=== PATIENT | male | born 1945 | race Caucasian/White ===

== ENCOUNTER 2016-08-16 13:36 | Inpatient (IN) | payer OTHER, BC ==
--- NOTE | 2016-08-16 13:58 | EDPHY ---
H & P Stated Complaint: SOB and cough for 2 weeks. Time Seen by Provider: 08/16/16 13:50 HPI/ROS: CHIEF COMPLAINT: Shortness of breath, cough HISTORY OF PRESENT ILLNESS: 71yo male with CAD and atrial tachycardia presents with a 2 week history of cough and shortness of breath. Onset a productive cough 2 weeks ago, associated with gradually increasing shortness of breath. He had a chest x-ray through his primary care physician 1 week ago which revealed no evidence of pneumonia. He was placed on inhalers without relief. He now feels short of breath with minimal exertion. He becomes easily fatigued even with mild activity like climbing into bed. He required electrical cardioversion for atrial tachycardia last October. He denies fever, sore throat, malaise, or unusual leg swelling. REVIEW OF SYSTEMS: Constitutional: No fever, no chills Eyes: No visual changes ENT: No sore throat Respiratory: see HPI Cardiac: No chest pain Gastrointestinal: No nausea, no vomiting, no abdominal pain Genitourinary: No hematuria, no dysuria Musculoskeletal: No leg pain or swelling Skin: No rash Neurological: No headache, no weakness Psychiatric: No depression - Personal History Current Tetanus Diphtheria and Acellular Pertussis (TDAP): Yes - Medical/Surgical History PMH: PMH includes: 1. Acute on chronic systolic heart failure 2. Chronic diastolic heart failure related to prior endocarditis, diastolic dysfunction, and aortic and mitral mechanical valve replacement 3. Coronary artery disease status post CABG at the time of his valve replacement 4. New onset atrial tachycardia with RVR requiring cardioversion 11/07/15 5. Diabetes 6. Dyslipidemia Prior medical records reviewed including cardiology admission 11/07/15. Hx Asthma: No Hx Chronic Respiratory Disease: No Hx Diabetes: No Hx Cardiac Disease: Yes Hx Renal Disease: No Hx Cirrhosis: No Hx Alcoholism: No Hx HIV/AIDS: No Hx Splenectomy or Spleen Trauma: No Other PMH: 2 heart valves. Prostate cancer. - Social History Smoking Status: Former smoker Additional Social History: Lives [address] [place]. Former smoker. PCP: Dr. Tavarez Second Grade Teacher: Dr. Tejeda - Physical Exam Exam: General Appearance: Alert, obese, no distress Eyes: Pupils equal and round, no conjunctival pallor or injection ENT, Mouth: Mucous membranes moist Neck: Normal inspection Respiratory: Lungs are clear to auscultation, increased respiratory effort. Cardiovascular: Tachycardic regular rate and rhythm Gastrointestinal: Abdomen is soft and non-tender Neurological: A&O, nonfocal, normal gait Skin: Warm and dry, no rash Extremities: Nontender, no pedal edema Psychiatric: Mood and affect normal Constitutional: Initial Vital Signs Temperature (C) 36.3 C 08/16/16 13:40 Heart Rate 104 H 08/16/16 13:40 Respiratory Rate 20 08/16/16 13:40 Blood Pressure 119/83 H 08/16/16 13:40 O2 Sat (%) 96 08/16/16 13:40 O2 Delivery Mode Room Air O2 (L/minute) 2 Allergies/Adverse Reactions: gentamicin [Gentamicin] Allergy (Verified 11/28/12 05:39) Home Medications: Medication Instructions Recorded Carvedilol [Coreg (*)] 25 mg PO BIDMEAL 11/07/15 Furosemide [Lasix 40 MG (*)] 40 mg PO DAILY 11/07/15 Losartan Potassium [Cozaar 25 mg 25 mg PO DAILY 11/07/15 (*)] Nystatin [Nyamyc] 1 abhi TP DAILY 11/07/15 Simvastatin [Zocor] 80 mg PO HS 11/07/15 Warfarin Sodium [Coumadin 3MG (*)] 7 mg PO SUTUWEFRSA 11/07/15 Warfarin Sodium [Coumadin 4MG (*)] 8 mg PO MOTH 11/07/15 buPROPion SR [Wellbutrin 100mg SR 200 mg PO BID 11/07/15 (*)] metFORMIN HCL [Glucophage 500 mg 1,000 mg PO BIDMEAL 11/07/15 (*)] Amiodarone HCl [Pacerone (*)] 200 mg PO DAILY #60 tab 11/10/15 Aspirin [Aspirin 325 mg (*)] 325 mg PO DAILY #0 tab 11/10/15 Medical Decision Making - Diagnostics EKG Interpretation: EKG interpreted by me reveals atrial tachycardia, rate 107, diffuse ST T segment changes, concerning for ischemia. Similar to old EKG dated 11/08/2015. Imaging Results: Imaging Impressions Chest X-Ray 08/16/16 13:51 Impression: Increasing retrocardiac left basilar density. Differential diagnosis includes mass, loculated fluid and diaphragmatic hernia. Results discussed with Dr. Gonzalez at 2:42 PM ED Course/Re-evaluation: This is a 71 y/o male with a significant cardiac history who presents with a 2- week history of unimproved shortness of breath. A chest x-ray 1 week ago was negative per the patient and inhalers have not helped his symptoms. He appears to be short of breath during assessment while talking with me. His lungs are clear and he is afebrile. He is slightly tachycardic around 110. Plan for IV, labs, chest x-ray, EKG. The 12 lead EKG was interpreted by myself. Atrial tachycardia rate [address] changes new from prior EKGs in our records. See hard copy and/or "tracemaster" electronic copy for interpretation. Chest x-ray discussed with Dr. Mahan reveals a retrocardiac density. Noncontrast CT scan of the chest ordered to further evaluate this finding. The patient's D-dimer was elevated at 3200, consistent with pulmonary edema. This is most likely secondary to the rapid atrial tachycardia. Lasix 20mg IV given. Dr. Appiah was consulted from [facility] to further evaluate the atrial tachycardia and to consider cardioversion. The hospitalist service, Dr. Mendoza , was consulted for admission. Differential Diagnosis: Differential diagnosis includes though it is not limited to pneumonia, pneumothorax, pulmonary embolism, aortic dissection, pericarditis, acute coronary syndrome. - Data Points Laboratory Results: Laboratory Results 08/16/16 14:10 08/16/16 14:10 08/16/16 08/16/16 08/16/16 14:10 14:10 14:10 WBC 8.37 10^3/uL 10^3/uL (3.80-9.50) RBC 4.93 10^6/uL 10^6/uL (4.40-6.38) Hgb 15.1 g/dL g/dL (13.7-17.5) Hct 44.7 % % (40.0-51.0) MCV 90.7 fL fL (81.5-99.8) MCH 30.6 pg pg (27.9-34.1) MCHC 33.8 g/dL g/dL (32.4-36.7) RDW 15.5 % H % (11.5-15.2) Plt Count 284 10^3/uL 10^3/uL (150-400) MPV 10.6 fL fL (8.7-11.7) Neut % (Auto) 68.2 % % (39.3-74.2) Lymph % (Auto) 14.5 % L % (15.0-45.0) [place] % (Auto) 9.8 % % (4.5-13.0) Eos % (Auto) 6.2 % % (0.6-7.6) Baso % (Auto) 0.6 % % (0.3-1.7) Nucleat RBC Rel Count 0.0 % % (0.0-0.2) Absolute Neuts (auto) 5.71 10^3/uL 10^3/uL (1.70-6.50) Absolute Lymphs (auto) 1.21 10^3/uL 10^3/uL (1.00-3.00) Absolute Monos (auto) 0.82 10^3/uL H 10^3/uL (0.30-0.80) Absolute Eos (auto) 0.52 10^3/uL H 10^3/uL (0.03-0.40) Absolute Basos (auto) 0.05 10^3/uL 10^3/uL (0.02-0.10) Absolute Nucleated RBC 0.00 10^3/uL 10^3/uL (0-0.01) Immature Gran % 0.7 % % (0.0-1.1) Immature Gran # 0.06 10^3/uL 10^3/uL (0.00-0.10) PT 27.3 SEC H SEC (12.0-15.0) INR 2.50 H (0.83-1.16) D-Dimer 0.42 ug/mLFEU ug/mLFEU (0.00-0.50) Sodium 137 mEq/L mEq/L (134-144) Potassium 4.5 mEq/L mEq/L (3.5-5.2) Chloride 104 mEq/L mEq/L (97-110) Carbon Dioxide 19 mEq/l L mEq/l (22-31) Anion Gap 14 mEq/L mEq/L (8-16) BUN 27 mg/dL H mg/dL (7-23) Creatinine 1.6 mg/dL H mg/dL (0.7-1.3) Estimated GFR 43 Glucose 134 mg/dL H mg/dL (70-100) Calcium 9.6 mg/dL mg/dL (8.5-10.4) Troponin I 0.027 ng/mL ng/mL (0-0.034) NT-Pro-B Natriuret Pep 3270 pg/mL H pg/mL (0-125) Departure - Departure Disposition: [facility] Inpatient Acute Clinical Impression: Atrial tachycardia Pulmonary edema Qualifiers: Chronicity: acute Qualified Code(s): J81.0 - Acute pulmonary edema Condition: Fair Referrals: Heriberto Tavarez MD [Primary Care Provider] - As per Instructions Report Scribed for: Khushboo Gonzalez Report Scribed by: Vaishali Shaw Date of Report: 08/16/16 Time of Report: 14:06 Physician Review and Approval Statement: 08/16/16 14:06 Portions of this note were transcribed by a program medical director. I personally performed a history, physical exam, medical decision making, and confirmed accuracy of information the transcribed note.
--- NOTE | 2016-08-16 13:59 | CPEKG ---
Heart Rate: 107 RR Interval: 561 P-R Interval: 190 QRSD Interval: 86 QT Interval: 400 QTC Interval: 534 P Maramec: 0 QRS Maramec: 55 T Wave Maramec: 197 EKG Severity - ABNORMAL ECG - EKG Impression: atrial tachycardia EKG Impression: PROLONGED QT INTERVAL EKG Impression: diffuse ST changes, consider ischemia Electronically Signed By: Marina Snyder 16-Aug-2016 22:59:30
[2016-08-16 14:19] LABS: % IMMATURE GRANULYOCYTES 0.7 % (0.0-1.1); ABSOLUTE IMMATURE GRANULOCYTES 0.06 10^3/uL (0.00-0.10); ADD DIFF? NO; ADD MORPH? NO; ADD SCAN? NO; ATYPICAL LYMPHOCYTE FLAG 0 (0-99); FRAGMENT RBC FLAG 0 (0-99); HEMATOCRIT 44.7 % (40.0-51.0); HEMOGLOBIN 15.1 g/dL (13.7-17.5); LEFT SHIFT FLG 0 (0-99); LIPEMIA HEMOLYSIS FLAG 90 (0-99); MEAN CELL HEMOGLOBIN 30.6 pg (27.9-34.1); MEAN CELL HEMOGLOBIN CONCENTR. 33.8 g/dL (32.4-36.7); MEAN CELL VOLUME 90.7 fL (81.5-99.8); MEAN PLATELET VOLUME 10.6 fL (8.7-11.7); PLATELET CLUMPS FLAG 0 (0-99); PLATELET COUNT 284 10^3/uL (150-400); RED BLOOD CELL COUNT 4.93 10^6/uL (4.40-6.38); RED CELL DISTRIBUTION WIDTH 15.5 % (11.5-15.2)
[2016-08-16 14:31] LABS: INR 2.5 (0.83-1.16); PROTIME(PATIENT) 27.3 SEC (12.0-15.0)
[2016-08-16 14:32] LABS: ANION GAP 14 mEq/L (8-16); CALCIUM 9.6 mg/dL (8.5-10.4); CARBON DIOXIDE 19 mEq/l (22-31); CHLORIDE 104 mEq/L (97-110); CREATININE 1.6 mg/dL (0.7-1.3); GLOMERULAR FILTRATION RATE 43; GLUCOSE 134 mg/dL (70-100); POTASSIUM 4.5 mEq/L (3.5-5.2); SODIUM 137 mEq/L (134-144)
[2016-08-16 14:44] LABS: TROPONIN I 0.027 ng/mL (0-0.034)
[2016-08-16] MEDS ORDERED: FUROSEMIDE 20 MG/2 ML VIAL IVP ONE (14:49)
[2016-08-16] MEDS ORDERED: ACETAMINOPHEN 325 MG TAB PO PRN (16:06)
[2016-08-16] MEDS ORDERED: ONDANSETRON 4 MG/2 ML VIAL IVP PRN (16:06)
[2016-08-16] MEDS ORDERED: ZOLPIDEM TARTRATE 5 MG TAB PO PRN (16:06)
--- NOTE | 2016-08-16 16:15 | PDGENHP ---
History and Physical History and Physical: HISTORY AND PHYSICAL CC: Shortness of breath HISTORY: This patient is history of heart disease including coronary disease with stents bypass surgery, as well as history of atrial tachycardia status post cardioversion on amiodarone and history of sleep apnea. He comes in at this time with several days of gradually worsening shortness of breath to the point where he has trouble getting in and out of bed without getting short of breath. He is not having any pain or discomfort in the chest neck arms or otherwise. There is no nausea no diaphoresis no pleuritic symptoms. He has no pain or swelling in the legs. There is a slight cough but there is no sputum production and no fever. The patient did travel from the [facility] to [place] 3 weeks ago but did not have any trouble at that time. He does not think he was exposed anyone with a particular illness before or during his travel. ROS: His other major complaint is balance difficulty. 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 He is very dependent on his site for balance. A comprehensive 10 system review revealed no other significant findings PAST MEDICAL HISTORY: Coronary artery disease status post coronary stent and single-vessel bypass surgery; his bypass surgery was complicated by intrathoracic hemorrhage requiring reoperation and transfusion of total of 83 units of blood product Replacement of aortic and mitral valves, mechanical Chronic anticoagulation for his valve replacements Atrial tachycardia, status post cardioversion taking chronic amiodarone Obstructive sleep apnea, intolerant of CPAP so does not use that Bacterial endocarditis Chronic kidney disease 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 He has never been does not have children. He is a [place] and has returned to [place] 5 times now since the or. He formally smoked pot but has had no pot the past year. He does use some alcohol on occasion does not use any tobacco MEDICATIONS: The patients list has been reconciled by our clinical pharmacist in the EMR. I have reviewed the list and ordered appropriate medicines. PHYSICAL EXAMINATION: Vital Signs: Pulse is regular but rapid at 108-110 per minute, blood pressure and respirations are normal and there is no fever Mmd Unit Teacher: Regular narrow complex tachycardia without acute P waves, unable to discern with certainty the origin of the rhythm Examination: General: alert, oriented, good mentation, relaxed; obese Skin: warm, dry, good color, no rash HEENT: normal Neck: no mass or jvd Resps: Mildly labored Lungs: Very quiet distant breath sounds, unable to hear anything in particular in the way of abnormal sounds Heart: regular, rapid, audible click of his valves but no murmur Abdomen: soft, nondistended, nontender, +BS, no mass Upper Extremities: normal Lower Extremities: no edema, warm No Bleeding or bruising Neurologic: normal speech/language, normal accounts payable assistant, no focal weakness IV site: looks normal LABORATORY DATA: D-dimer and troponin are normal BNP is greater than 3000 having just been measured at 250 quite recently INR normal range at 2.5 but at the bottom and arrange for his valve replacements Creatinine at his baseline at 1.6 RADIOLOGY STUDIES: I reviewed the images of today's chest x-ray and CT scan of the chest. There is no evidence of pulmonary edema. The heart is not tremendously enlarged. There is significant posterior elevation of the left hemidiaphragm which appears scarred against the chest wall and this appears to be probably chronic and related to his previous complicated heart surgeries. There is a little bit of atelectasis around the elevated left hemidiaphragm 12 LEAD EKG: I reviewed the tracing from his EKG in the ER. This is a rapid regular tachycardia. The origin of the rhythm is not discernible although from its appearance my belief is that this probably represents atrial flutter with 1 of the flutter waves buried in the QRS complex. The rate is 108 beats per minute on the manual machinist while in the ER and 107 on the EKG. There are no definite ischemic changes. There are some ST segment abnormalities but again I think these probably represent changes related to atrial flutter. Will review this with cardiology ASSESSMENT: -acute shortness of breath, with significant debilitation relates this symptom -regular tachycardia, either atrial tachycardia or more likely atrial flutter -acute congestive heart failure with elevated BNP, systolic and rhythm related -no sign of pulmonary embolism and his troponin is normal -stable chronic renal disease -history of heart valve replacement on chronic anticoagulation, at the low end of therapeutic anticoagulation range at this time -obesity with sleep apnea, unable to tolerate CPAP -lives at greater than 8000 feet in [place]; this will need to be taken into consideration at the time of his discharge regarding need for oxygen therapy and also how well he is doing with breathing and activities PLANS: -admitted to PCU inpatient status as he will need more than 2 days for management of his heart failure correction of his rhythm -begin IV diuresis -continue current Coumadin, and current amiodarone for at this time; follow INR daily here -diltiazem to try to achieve rate control -Cardiology consult, consider trial of cardioversion or other measures as necessary for rhythm conversion -has not had an echo for more than a year so will order echocardiogram at this time I have reviewed the patient's case in detail with Dr. Khushboo Gonzalez I have reviewed the patient's past medical records as part of this assessment, including previous hospital admission notes and outpatient laboratory data
[2016-08-16] MEDS: CARVEDILOL 6.25 MG TAB PO SCH (17:58)
[2016-08-16] MEDS: WARFARIN SODIUM 1 MG TAB PO SCH (17:59)
[2016-08-16] MEDS: WARFARIN SODIUM 5 MG TAB PO SCH (18:00)
[2016-08-16] MEDS: DILTIAZEM 125 MG in D5W 125 ML IV SCH (18:00)
[2016-08-16] MEDS: ATORVASTATIN CALCIUM 20 MG TAB PO SCH (20:28)
[2016-08-17] MEDS: HYDROcodone/CPM TUSSIONEX 5 ML UDSYR PO PRN (02:24)
[2016-08-17 04:38] LABS: ANION GAP 14 mEq/L (8-16); CALCIUM 9.2 mg/dL (8.5-10.4); CARBON DIOXIDE 18 mEq/l (22-31); CHLORIDE 103 mEq/L (97-110); CREATININE 1.7 mg/dL (0.7-1.3); GLOMERULAR FILTRATION RATE 40; GLUCOSE 141 mg/dL (70-100); MAGNESIUM 2.1 mg/dL (1.6-2.3); SODIUM 135 mEq/L (134-144)
[2016-08-17] MEDS ORDERED: FUROSEMIDE 40 MG/4 ML VIAL IVP SCH (09:00)
[2016-08-17] MEDS: DILTIAZEM 125 MG in D5W 125 ML IV SCH (09:22)
[2016-08-17] MEDS ORDERED: AMIODARONE HCL 100 ML IV ONE (10:20)
[2016-08-17] MEDS ORDERED: AMIODARONE HCL 200 ML IV ONE ×2 (10:20→10:23)
[2016-08-17] MEDS: buPROPion XL 150 MG TAB PO SCH (10:25)
[2016-08-17] MEDS: MULTIVITAMINS 1 EACH TAB PO SCH (10:25)
[2016-08-17] MEDS: CARVEDILOL 6.25 MG TAB PO SCH ×2 (10:34→18:12)
--- NOTE | 2016-08-17 10:34 | PDCARCONS ---
Cardiology Consult Reason for Consult: Progressive shortness of breath and fatigue Chief Complaint: Progressive shortness of breath and fatigue Requesting Physician: Dr. De Leon History of Present Illness: 71 year-old male usually cared for by Dr. Tejeda with complex cardiac history including remote history of CAD s/p PCI complicated by multivalve endocarditis with subsequent CABG, mechanical AVR and MVR, multiple cardiac risk factors presented to ED yesterday with 2 weeks of progressively worsening fatigue, shortness of breath, and a cough. He returned back to his home [place] on July 27 after a 7 month stay in the [facility] where he was in his usual state of health. He visited his PCP Dr. Tavarez weeks ago who started him on inhalers that were not effective. He has known sleep apnea that is generally treated w/ nocturnal O2 but this has not been resumed since returning from his trip. He has been compliant with his other medications. He denies any chest discomfort, orthopnea, presyncope, syncope, or palpitations. He has not been able to detect his pulse and was not aware of his heart racing. He denies any fever, chills, diarrhea/constipation, abdominal pain, headache or vision changes. EKG upon presentation to ED shows likely atrial flutter with ventricular rate of 107 bpm, there are no ischemic changes. His troponin is negative and his BNP is elevated at 3270. D-dimer is negative. CXR shows no evidence of PNA or pulmonary edema however with noted left retrocardiac density. A follow up non- contrast chest CT suggests likely elevated left hemidiaphragm likely due to post operative lung base scarring. Mr. [place] has been stable overnight. His HRs continue to range in the 105- 115 bpm range in atrial flutter. He is chronically treated with amiodarone 100 mg daily stemming from his most recent hospitalization in October 2015 where he exhibited the same rhythm. Coronary angiography at that time did not show flow limiting CAD. LVEF was 40% at that time. A repeat echocardiogram shows stable LVEF 40% with normal mitral and aortic valve function and gradients. RVSP appears normal. He is currently resting comfortably and is able to lie flat without increased labor of breathing. He is on a diltiazem iv drip at 7.5 mg/hr. His other antihypertensive medications have not been given. BPs are running 100-110 systolic over 60s diastolic. We are asked by hospitalist service to consult on cardiac management of his patient. History Information - Allergies/Home Medication List Allergies/Adverse Reactions: gentamicin [Gentamicin] Allergy (Verified 11/28/12 05:39) Home Medications: Amiodarone HCl [Pacerone (*)] 100 mg PO DAILY 08/16/16 [Last Taken 08/16/16] Bupropion HCl [Wellbutrin Xl] 300 mg PO DAILY 08/16/16 [Last Taken 08/16/16] Carvedilol [Coreg] 12.5 mg PO BID 08/16/16 [Last Taken 08/16/16 1 TAB] Furosemide [Lasix 40 MG (*)] 40 mg PO DAILY 08/16/16 [Last Taken 08/16/16] Herbals/Supplements -Info Only 1 ea PO DAILY 08/16/16 [Last Taken Unknown] Losartan Potassium [Cozaar 25 mg (*)] 25 mg PO DAILY 08/16/16 [Last Taken ] Metformin HCl [Metformin 1000 mg] 1,000 mg PO BID 08/16/16 [Last Taken 08/15/16] Multivitamins [Multivitamin (*)] 1 each PO DAILY 08/16/16 [Last Taken 08/16/16] Simvastatin 40 mg PO HS 08/16/16 [Last Taken 08/15/16] Warfarin Sodium [Coumadin 1MG (*)] 2 mg PO DAILY18 08/16/16 [Last Taken 08/15/16 ] Warfarin Sodium [Coumadin] 5 mg PO DAILY@18 08/16/16 [Last Taken 08/15/16] - Social History Smoking Status: Former smoker Physical Exam Temp Pulse Resp BP Pulse Ox 36.7 C 109 H 19 160/79 H 96 08/17/16 07:34 08/17/16 09:22 08/17/16 07:34 08/17/16 07:34 08/17/16 07:34 O2 (L/minute) 2 Constitutional: no apparent distress, appears nourished, not in pain Cardiovascular: no murmur, rub, or gallop, tachycardia, other (S2 consistent w/ mechanical valves), No systolic murmur, No irregularly irregular, No edema Respiratory: no respiratory distress, no rales or rhonchi, clear to auscultation Gastrointestinal: normoactive bowel sounds, soft, non-tender abdomen, no palpable masses Neurologic: AAOx3, sensation intact bilaterally, CN II-XII Intact Psychiatric: interacting appropriately, not anxious, not encephalopathic, thought process linear Lab and Imaging 08/16/16 14:10 08/17/16 03:47 WBC 8.37 10^3/uL (3.80-9.50) 08/16/16 14:10 RBC 4.93 10^6/uL (4.40-6.38) 08/16/16 14:10 Hgb 15.1 g/dL (13.7-17.5) 08/16/16 14:10 Hct 44.7 % (40.0-51.0) 08/16/16 14:10 MCV 90.7 fL (81.5-99.8) 08/16/16 14:10 MCH 30.6 pg (27.9-34.1) 08/16/16 14:10 MCHC 33.8 g/dL (32.4-36.7) 08/16/16 14:10 RDW 15.5 % (11.5-15.2) H 08/16/16 14:10 Plt Count 284 10^3/uL (150-400) 08/16/16 14:10 MPV 10.6 fL (8.7-11.7) 08/16/16 14:10 Neut % (Auto) 68.2 % (39.3-74.2) 08/16/16 14:10 Lymph % (Auto) 14.5 % (15.0-45.0) L 08/16/16 14:10 [place] % (Auto) 9.8 % (4.5-13.0) 08/16/16 14:10 Eos % (Auto) 6.2 % (0.6-7.6) 08/16/16 14:10 Baso % (Auto) 0.6 % (0.3-1.7) 08/16/16 14:10 Nucleat RBC Rel Count 0.0 % (0.0-0.2) 08/16/16 14:10 Absolute Neuts (auto) 5.71 10^3/uL (1.70-6.50) 08/16/16 14:10 Absolute Lymphs (auto) 1.21 10^3/uL (1.00-3.00) 08/16/16 14:10 Absolute Monos (auto) 0.82 10^3/uL (0.30-0.80) H 08/16/16 14:10 Absolute Eos (auto) 0.52 10^3/uL (0.03-0.40) H 08/16/16 14:10 Absolute Basos (auto) 0.05 10^3/uL (0.02-0.10) 08/16/16 14:10 Absolute Nucleated RBC 0.00 10^3/uL (0-0.01) 08/16/16 14:10 Immature Gran % 0.7 % (0.0-1.1) 08/16/16 14:10 Immature Gran # 0.06 10^3/uL (0.00-0.10) 08/16/16 14:10 PT 27.3 SEC (12.0-15.0) H 08/16/16 14:10 INR 2.50 (0.83-1.16) H 08/16/16 14:10 D-Dimer 0.42 ug/mLFEU (0.00-0.50) 08/16/16 14:10 Sodium 135 mEq/L (134-144) 08/17/16 03:47 Potassium 4.0 mEq/L (3.5-5.2) 08/17/16 03:47 Chloride 103 mEq/L (97-110) 08/17/16 03:47 Carbon Dioxide 18 mEq/l (22-31) L 08/17/16 03:47 Anion Gap 14 mEq/L (8-16) 08/17/16 03:47 BUN 31 mg/dL (7-23) H 08/17/16 03:47 Creatinine 1.7 mg/dL (0.7-1.3) H 08/17/16 03:47 Estimated GFR 40 08/17/16 03:47 Glucose 141 mg/dL (70-100) H 08/17/16 03:47 Calcium 9.2 mg/dL (8.5-10.4) 08/17/16 03:47 Magnesium 2.1 mg/dL (1.6-2.3) 08/17/16 03:47 Troponin I 0.027 ng/mL (0-0.034) 08/16/16 14:10 NT-Pro-B Natriuret Pep 3270 pg/mL (0-125) H 08/16/16 14:10 A/P Assessment: 1. Acute on chronic systolic CHF likely 2/2 tachyarrhythmia. Most recent LVEF 40 % by 2015 MARCE. He has been compliant with all medications. 2. Atrial flutter w/ rapid ventricular rate. On amiodarone 100 mg/d. 3. BUCKY that is currently untreated. Normally on supplemental O2 that has not been restarted [place] 4. Negative D-dimer. 5. CAD s/p remote PCI and CABG. He denies anginal symptoms. Troponin is negative. 6. Mechanical aortic valve replacement. 7. Mechanical mitral valve replacement. 8. Acute renal insufficiency. 9. History of endocarditis. 10. Type II DM. 11. HTN. 12. Hyperlipidemia. Plan: Plan was discussed w/ Dr. Appiah 1. Reload w/ amiodarone iv protocol. 2. Discontinue diltiazem iv gtt. 3. Continue all other home medications. 4. NPO after midnight and proceed with DC cardiversion if patient does not convert back to NSR. 5. Reduce furosemide to once daily dosing due to uptrending Cr. and no evidence of pulmonary edema.
--- NOTE | 2016-08-17 10:49 | ECHO ---
[id number] + + [id number] : : [place] [address] : : [phone] + + Adult Echocardiographic Report + ---------+ :Name: NAJMA SIMMONS LStudy Date: 08/16/2016 04:32 PM BP: 118/78 m mHg : : Hospital Admission Number: [id number] Marybeth pepper: 213: :: 1945 Gender: Male Height: 73 i n : :Age: 71 yrs Race: WH Weight: 268 lb : :Reason For Study: acute chf? a flutter : : BSA: 2.4 met ers2 : :History: h/o mvr and avr : + ---------+ MMode/2D Measurements \T\ Calculations RVDd: 3.3 cm FS: 22.4 % Ao root diam: LVLd ap4: 8.2 cm LVIDd: 4.3 cm EDV(Teich): 3.1 cm EDV(MOD-sp4): LVIDs: 3.3 cm 81.5 ml 129.0 ml ESV(Teich): LVLs ap4: 7.0 cm 44.4 ml ESV(MOD-sp4): EF(Teich): 45.5 % 77.0 ml EF(MOD-sp4): 40.3 % SV(MOD-sp4): 52.0 ml Normal Measurement Values: + + :LVIDd (3.5-5.7cm) IVSd (0.6-1.1cm) LVPWd (0.6-1.1cm) Aortic Root (2.0-3.7cm)Left Atrium (1.5-4.0cm): :LV Vol(d) (76-115ml) LV Vol(s) (29-48ml) Ejec Fraction (50-65%)PV Huy (0.6- 1.2m/s) TV Huy (0.4-1.0m/s) : :MV E Huy (0.8-1.0m/s)MV A Huy (0.3-1.0m/s)LVOT Huy (0.7-1.2m/s) Asc Ao Huy ( 0.9-1.8m/s) : + + Doppler Measurements \T\ Calculations MV V2 mean: MV P1/2t max huy: Ao V2 max: LV V1 max: 72.9 cm/sec 128.5 cm/sec 132.9 cm/sec 80.5 cm/sec MV mean PG: MV P1/2t: 63.9 msec Ao max PG: LV V1 max P.6 mmHg MVA(P1/2t): 3.4 cm2 7.1 mmHg 2.6 mmHg MV V2 VTI: MV dec slope: Ao mean P.0 cm 4.9 mmHg 589.5 cm/sec2 Ao V2 mean: 106.9 cm/sec Ao V2 VTI: 18.9 cm PA V2 max: TR max huy: 50.3 cm/sec 198.1 cm/sec PA max PG: TR max P.7 mmHg 1.0 mmHg RAP systole: 5.0 mmHg RVSP(TR): 20.7 mmHg Left Ventricle The left ventricle is normal in size. There is mild concentric left ventricular hypertrophy. Left ventricular systolic function is mildly reduced. Ejection Fraction = 40%. Inferior and septal wall hypokinesis. Right Ventricle The right ventricle is grossly normal size. The right ventricular systolic function is mildly reduced. Atria The left atrium is moderately dilated. The right atrium is mildly dilated. Mitral Valve There is a prosthetic mitral valve. The prosthetic mitral valve is not well visualized. Normal prosthetic mitral valve gradients. Tricuspid Valve The tricuspid valve is not well visualized. There is no tricuspid stenosis. There is mild tricuspid regurgitation. Right ventricular systolic pressure is 21mmHg. Aortic Valve There is a prosthetic aortic valve. The prosthetic aortic valve is not well visualized. The gradient is normal for this prosthetic aortic valve. Pulmonic Valve The pulmonic valve is not well visualized. Great Vessels Borderline aortic root dilatation. Pericardium/Pleural Small pericardial effusion. Conclusion A two-dimensional transthoracic echocardiogram with M-mode and Doppler was performed. The study was technically difficult. There is mild concentric left ventricular hypertrophy. Left ventricular systolic function is mildly reduced. Ejection Fraction = 40%. Inferior and septal wall hypokinesis. The right ventricular systolic function is mildly reduced. The left atrium is moderately dilated. The right atrium is mildly dilated. There is a prosthetic mitral valve. Normal prosthetic mitral valve gradients. There is mild tricuspid regurgitation. Right ventricular systolic pressure is 21mmHg. There is a prosthetic aortic valve. The prosthetic aortic valve is not well visualized. The gradient is normal for this prosthetic aortic valve. Borderline aortic root dilatation. Small pericardial effusion. Final Reading Physician: Rizwan Perry signed on 08/17/2016 10:47 AM Ordering Physician: Jeferson Mendoza Performed By: Jane Persaud
[2016-08-17] MEDS: AMIODARONE HCL 200 MG TAB PO SCH (11:22)
--- NOTE | 2016-08-17 12:03 | HOSPPROG ---
Hospitalist Progress Note Assessment/Plan: * atrial fibrillation with rapid ventricular response * status post cardioversion October * already anticoagulated * cardiology input appreciated * trying IV amiodarone and it fails will get cardioversion tomorrow * fluid overload secondary to rapid heart rate * continue diuresis * history of aortic and mitral valve replacement * continue Coumadin * chronic kidney disease * probably close to baseline * history of coronary artery disease status post bypass surgery * brain injury secondary bypass surgery * history of prostate cancer * hypertension * obstructive sleep apnea Subjective: Feeling better overall. Less shortness of breath Objective: Vital Signs Temp Pulse Resp BP Pulse Ox 35.8 C L 110 H 15 109/76 96 08/17/16 11:35 08/17/16 11:35 08/17/16 11:35 08/17/16 11:35 08/17/16 11:35 Laboratory Results 08/17/16 03:47 08/16/16 08/17/16 08/18/16 05:59 05:59 05:59 Intake Total 481 300 Output Total 470 300 Balance 11 0 PT 27.3 SEC (12.0-15.0) H 08/16/16 14:10 INR 2.50 (0.83-1.16) H 08/16/16 14:10 discussed with Cardiology tele personally viewed interpreted atrial fibrillation - Physical Exam Constitutional: no apparent distress, appears nourished, not in pain Eyes: anicteric sclera, EOMI Ears, Nose, Mouth, Throat: moist mucous membranes, hearing normal Cardiovascular: no murmur, rub, or gallop, irregularly irregular, other ( [facility]), No edema Respiratory: no respiratory distress, no rales or rhonchi Gastrointestinal: normoactive bowel sounds, soft, non-tender abdomen, no palpable masses Skin: warm Neurologic: AAOx3 Psychiatric: interacting appropriately, not anxious, not encephalopathic, thought process linear ICD10 Worksheet Patient Problems: Problems Problem Status Onset Atrial tachycardia Acute Pulmonary edema Acute Acute on chronic systolic heart failure, NYHA class 3 Acute
[2016-08-17] MEDS: LOSARTAN POTASSIUM 25 MG TAB PO SCH (13:08)
[2016-08-17] MEDS ORDERED: AMIODARONE HCL 540 MG in D5W 300 ML IV ONE (17:30)
[2016-08-17] MEDS: WARFARIN SODIUM 1 MG TAB PO SCH (18:11)
[2016-08-17] MEDS: WARFARIN SODIUM 5 MG TAB PO SCH (18:12)
[2016-08-17] MEDS: ATORVASTATIN CALCIUM 20 MG TAB PO SCH (21:56)
[2016-08-18] MEDS: HYDROcodone/CPM TUSSIONEX 5 ML UDSYR PO PRN (02:35)
[2016-08-18 04:20] LABS: % IMMATURE GRANULYOCYTES 0.7 % (0.0-1.1); ABSOLUTE IMMATURE GRANULOCYTES 0.07 10^3/uL (0.00-0.10); ADD DIFF? NO; ADD MORPH? NO; ADD SCAN? NO; ATYPICAL LYMPHOCYTE FLAG 0 (0-99); FRAGMENT RBC FLAG 0 (0-99); HEMATOCRIT 43.5 % (40.0-51.0); HEMOGLOBIN 14.8 g/dL (13.7-17.5); LEFT SHIFT FLG 0 (0-99); LIPEMIA HEMOLYSIS FLAG 90 (0-99); MEAN PLATELET VOLUME 10.9 fL (8.7-11.7); PLATELET CLUMPS FLAG 10 (0-99); PLATELET COUNT 230 10^3/uL (150-400); RED BLOOD CELL COUNT 4.78 10^6/uL (4.40-6.38); RED CELL DISTRIBUTION WIDTH 15.5 % (11.5-15.2)
[2016-08-18 04:30] LABS: INR 3.46 (0.83-1.16); PROTIME(PATIENT) 35.4 SEC (12.0-15.0)
[2016-08-18 05:01] LABS: ANION GAP 13 mEq/L (8-16); CALCIUM 9.2 mg/dL (8.5-10.4); CARBON DIOXIDE 18 mEq/l (22-31); CHLORIDE 106 mEq/L (97-110); CREATININE 1.7 mg/dL (0.7-1.3); GLOMERULAR FILTRATION RATE 40; GLUCOSE 148 mg/dL (70-100); SODIUM 137 mEq/L (134-144)
[2016-08-18] MEDS: FUROSEMIDE 40 MG/4 ML VIAL IVP SCH ×2 (09:00→09:02)
[2016-08-18] MEDS: CARVEDILOL 6.25 MG TAB PO SCH ×2 (09:02→18:43)
[2016-08-18] MEDS: MULTIVITAMINS 1 EACH TAB PO SCH ×2 (09:03→12:36)
[2016-08-18] MEDS: LOSARTAN POTASSIUM 25 MG TAB PO SCH (09:03)
--- NOTE | 2016-08-18 11:07 | SOAPPROG ---
[facility] Progress Note Assessment/Plan: 1. Atrial tachycardia - Pt presents with his second episode of atrial tachycardia. His first episode was in 11/09. At that time he was treated with DCCV and started on amiodarone. Pt denies symptoms of palpitations but develops CHF when in the tachycardia. Onset was likely 2 weeks ago based on his CHF symptoms. Pt was started on IV amiodarone on 08/17 but remains in atrial tachycardia. Discussed risks and benefits of MARCE/CV. Will arrange to have this performed. 2. CHF - Pt has an ICM with an EF of 40%. He was well compensated until 2 weeks ago when he developed class II symptoms. The most likely precipitating factor is the atrial tachycardia as noted above. 3. CAD - Pt has known CAD and is s/p PCI and CABG. Angiogram in 11/09 with patent LAD, patent SVG to diagonal, occluded RCA and SVG to RCA. Pt denies symptoms of angina. His troponin is wnl. Continue medical management. 4. Valvular heart disease - Pt is s/p mechanical AVR and MVR. He has normal valve function on his echocardiogram. Subjective: No chest pain + mccabe No orthopnea or PND No palpitations Objective: Vital Signs Temp Pulse Resp BP Pulse Ox 36.6 C 100 19 108/74 97 08/18/16 08:00 08/18/16 08:00 08/18/16 08:00 08/18/16 08:00 08/18/16 08:00 Laboratory Results 08/18/16 03:22 08/18/16 03:22 08/17/16 08/18/16 08/19/16 05:59 05:59 05:59 Intake Total 481 940 Output Total 470 1585 Balance 11 -645 PT 35.4 SEC (12.0-15.0) H D 08/18/16 03:22 INR 3.46 (0.83-1.16) H 08/18/16 03:22 Physical Exam - Physical Exam General Appearance: alert, no apparent distress Respiratory: lungs clear Cardiac/Chest: tachycardia, other (mechanical valve sounds normal) Abdomen: non-tender, soft Skin: normal color Extremities: pedal edema Neuro/Psych: alert, oriented x 3 ICD10 Worksheet Patient Problems: Problems Problem Status Onset Atrial tachycardia Acute Pulmonary edema Acute Acute on chronic systolic heart failure, NYHA class 3 Acute
--- NOTE | 2016-08-18 11:08 | HOSPPROG ---
Hospitalist Progress Note Assessment/Plan: * atrial fibrillation with rapid ventricular response * status post cardioversion October * already anticoagulated * Cardioversion today * fluid overload secondary to rapid heart rate * continue diuresis * history of aortic and mitral valve replacement * continue Coumadin * chronic kidney disease * probably close to baseline * history of coronary artery disease status post bypass surgery * brain injury secondary bypass surgery * history of prostate cancer * hypertension * obstructive sleep apnea * disposition - will watch 1 more day after cardioversion. He lives alone in [place] Subjective: Still in a flutter. No new complaints Objective: Vital Signs Temp Pulse Resp BP Pulse Ox 36.6 C 100 19 108/74 97 08/18/16 08:00 08/18/16 08:00 08/18/16 08:00 08/18/16 08:00 08/18/16 08:00 Laboratory Results 08/18/16 03:22 08/18/16 03:22 08/17/16 08/18/16 08/19/16 05:59 05:59 05:59 Intake Total 481 940 Output Total 470 1585 Balance 11 -645 PT 35.4 SEC (12.0-15.0) H D 08/18/16 03:22 INR 3.46 (0.83-1.16) H 08/18/16 03:22 - Physical Exam Constitutional: no apparent distress, appears nourished, not in pain Eyes: anicteric sclera, EOMI Ears, Nose, Mouth, Throat: moist mucous membranes, hearing normal Cardiovascular: regular rate and rhythym, tachycardia, No edema Respiratory: no respiratory distress, no rales or rhonchi, clear to auscultation Gastrointestinal: normoactive bowel sounds, soft, non-tender abdomen, no palpable masses Skin: warm Neurologic: AAOx3 Psychiatric: interacting appropriately, not anxious, not encephalopathic, thought process linear ICD10 Worksheet Patient Problems: Problems Problem Status Onset Atrial tachycardia Acute Pulmonary edema Acute Acute on chronic systolic heart failure, NYHA class 3 Acute
[2016-08-18] MEDS ORDERED: LIDOCAINE 2% 5 ML SDV ONE (11:19)
[2016-08-18] MEDS ORDERED: PROPOFOL 200 MG/20 ML VIAL ONE ×2 (11:19)
--- NOTE | 2016-08-18 11:29 | PDANEPAE ---
ANE History of Present Illness a fib ANE Past Medical History - Cardiovascular History Hx Hypertension: Yes Hx Arrhythmias: Yes Hx Chest Pain: No Hx Coronary Artery / Peripheral Vascular Disease: Yes Hx CHF / Valvular Disease: Yes Hx Palpitations: Yes - Pulmonary History Hx COPD: Yes Hx Asthma/Reactive Airway Disease: No Hx Recent Upper Respiratory Infection: No Hx Oxygen in Use at Home: Yes - Endocrine History Hx Diabetes: Yes Hypothyroid: No Hyperthyroid: No - Liver History Hx Hepatic Disorders: No - Neurological & Psychiatric Hx Hx Neurological and Psychiatric Disorders: No - Chronic Pain History Chronic Pain: Yes ANE Review of Systems - Exercise capacity Exercise capacity: <4 METS - Systems Constitutional: Reports: malaise EENMT: Reports: no symptoms Cardiac: Reports: other (SOB) Gastrointestinal: Reports: no symptoms ANE Patient History - Allergies Allergies/Adverse Reactions: gentamicin [Gentamicin] Allergy (Verified 11/28/12 05:39) - Home Medications Home Medications: Amiodarone HCl [Pacerone (*)] 100 mg PO DAILY 08/16/16 [Last Taken 08/16/16] Bupropion HCl [Wellbutrin Xl] 300 mg PO DAILY 08/16/16 [Last Taken 08/16/16] Carvedilol [Coreg] 12.5 mg PO BID 08/16/16 [Last Taken 08/16/16 1 TAB] Furosemide [Lasix 40 MG (*)] 40 mg PO DAILY 08/16/16 [Last Taken 08/16/16] Herbals/Supplements -Info Only 1 ea PO DAILY 08/16/16 [Last Taken Unknown] Losartan Potassium [Cozaar 25 mg (*)] 25 mg PO DAILY 08/16/16 [Last Taken ] Metformin HCl [Metformin 1000 mg] 1,000 mg PO BID 08/16/16 [Last Taken 08/15/16] Multivitamins [Multivitamin (*)] 1 each PO DAILY 08/16/16 [Last Taken 08/16/16] Simvastatin 40 mg PO HS 08/16/16 [Last Taken 08/15/16] Warfarin Sodium [Coumadin 1MG (*)] 2 mg PO DAILY18 08/16/16 [Last Taken 08/15/16 ] Warfarin Sodium [Coumadin] 5 mg PO DAILY@18 08/16/16 [Last Taken 08/15/16] - NPO status NPO Since - Solids (Date): 08/17/16 NPO Since - Solids (Time): 18:30 - Anes Hx Anes Hx: no prior problems - Smoking Hx Smoking Status: Former smoker ANE Labs/Vital Signs - Labs Result Diagrams: 08/18/16 03:22 08/18/16 03:22 - Vital Signs Blood Pressure: 108/74 Heart Rate: 100 Respiratory Rate: 19 O2 Sat (%): 97 Height: 185.42 cm Weight: 122.3 kg ANE Physical Exam - Airway Mallampati Score: Class 4 Mouth exam: king - Pulmonary Pulmonary: no respiratory distress - Cardiovascular Cardiovascular: irregularly irregular - ASA Status ASA Status: III ANE Anesthesia Plan Anesthesia Plan: GA with mask
--- NOTE | 2016-08-18 12:01 | POSTANESTH ---
Post Anesthetic Evaluation Cardiovascular Status: Normal, Stable Respiratory Status: Normal, Stable Level of Consciousness/Mental Status: Can Participate in Eval Pain Control: Adequate, Prn Tx Ordered Nausea/Vomiting Control: Adequate, Prn Tx Ordered Complications Possibly Related to Anesthesia: None Noted
--- NOTE | 2016-08-18 12:30 | CPIP ---
[f rep st] INVASIVE CARDIAC PROCEDURE PROCEDURE: Cardioversion. DESCRIPTION OF PROCEDURE: The patient gave informed consent for transesophageal echocardiogram and cardioversion, and I very specifically explained to him the risks of stroke that occur with or witho ut a successful cardioversion, with or without adequate anticoagulation. He is anticoagulated on Co umadin and has been well anticoagulated, according to him, for a long time now. He wanted to proceed with the procedure today, not waiting any longer. He understood the risks of t ransesophageal echocardiogram as well, and understands the stroke risk even with a transesophageal e chocardiographic study. Transesophageal echocardiographic machine was passed without complications. Anesthesia was present. The patient has some smoke in the left atrium. The atrial appendage was well seen. There were no clots present and excellent velocities. We proceeded with cardioversion from atrial tachycardia to normal sinus rhythm with 360 watt seconds cardioversion and no complications. CONDITION AT END OF STUDY: Excellent. He is waking up now. Anesthesia, Respiratory, and echo are still in the room as I am dictating. He is not fully over his anesthetic yet. /[id number]/MODL
[2016-08-18] MEDS: buPROPion XL 150 MG TAB PO SCH (12:36)
[2016-08-18] MEDS ORDERED: LACTULOSE 20 GM/30 ML UDCUP PO PRN (13:37)
[2016-08-18] MEDS ORDERED: MAGNESIUM HYDROXIDE 30 ML UDCUP PO PRN (13:37)
[2016-08-18] MEDS ORDERED: POLYETHYLENE GLYCOL 3350 17 GM PKT PO PRN (13:37)
[2016-08-18] MEDS ORDERED: BISACODYL 10 MG SUPP PR PRN (13:37)
[2016-08-18] MEDS: WARFARIN SODIUM 1 MG TAB PO SCH (18:43)
[2016-08-18] MEDS: SENNOSIDES/DOCUSATE SODIUM TAB PO SCH (19:41)
[2016-08-18] MEDS: ATORVASTATIN CALCIUM 20 MG TAB PO SCH (19:41)
[2016-08-19 04:23] LABS: % IMMATURE GRANULYOCYTES 0.6 % (0.0-1.1); ABSOLUTE IMMATURE GRANULOCYTES 0.05 10^3/uL (0.00-0.10); ADD DIFF? NO; ADD MORPH? NO; ADD SCAN? NO; ATYPICAL LYMPHOCYTE FLAG 0 (0-99); FRAGMENT RBC FLAG 0 (0-99); HEMOGLOBIN 13.3 g/dL (13.7-17.5); LEFT SHIFT FLG 0 (0-99); LIPEMIA HEMOLYSIS FLAG 80 (0-99); MEAN CELL HEMOGLOBIN 30.5 pg (27.9-34.1); MEAN CELL HEMOGLOBIN CONCENTR. 33.3 g/dL (32.4-36.7); MEAN CELL VOLUME 91.7 fL (81.5-99.8); PLATELET CLUMPS FLAG 10 (0-99); PLATELET COUNT 205 10^3/uL (150-400); RED BLOOD CELL COUNT 4.36 10^6/uL (4.40-6.38); RED CELL DISTRIBUTION WIDTH 15.6 % (11.5-15.2)
[2016-08-19 04:32] LABS: INR 3.66 (0.83-1.16)
[2016-08-19 04:47] LABS: ANION GAP 12 mEq/L (8-16); CALCIUM 8.7 mg/dL (8.5-10.4); CARBON DIOXIDE 20 mEq/l (22-31); CHLORIDE 101 mEq/L (97-110); CREATININE 1.8 mg/dL (0.7-1.3); GLOMERULAR FILTRATION RATE 38; GLUCOSE 113 mg/dL (70-100); POTASSIUM 3.8 mEq/L (3.5-5.2); SODIUM 133 mEq/L (134-144)
[2016-08-19] MEDS: SENNOSIDES/DOCUSATE SODIUM TAB PO SCH (08:33)
[2016-08-19] MEDS: LOSARTAN POTASSIUM 25 MG TAB PO SCH (08:34)
[2016-08-19] MEDS: CARVEDILOL 6.25 MG TAB PO SCH (08:34)
[2016-08-19] MEDS: MULTIVITAMINS 1 EACH TAB PO SCH (08:35)
[2016-08-19] MEDS: buPROPion XL 150 MG TAB PO SCH (08:35)
[2016-08-19] MEDS: FUROSEMIDE 40 MG/4 ML VIAL IVP SCH (08:36)
[2016-08-19] MEDS: AMIODARONE HCL 200 MG TAB PO SCH (08:36)
--- NOTE | 2016-08-19 09:59 | SOAPPROG ---
[facility] Progress Note Assessment/Plan: 1. Atrial tachycardia - Pt presents with his second episode of atrial tachycardia. His first episode was in 11/09. At that time he was treated with DCCV and started on amiodarone. Pt denies symptoms of palpitations but develops CHF when in the tachycardia. Onset was likely 2 weeks ago based on his CHF symptoms. Pt was started on IV amiodarone on 08/17 but remained in atrial tachycardia. He was treated with DCCV on 08/18 and is in NSR at this time. --> Increase amiodarone to 200 mg a day --> Weekly INRs with [facility] for 4 weeks given increase in amiodarone --> F/U [facility] in 1 month. 2. CHF - Pt has an ICM with an EF of 40%. He was well compensated until 2 weeks ago when he developed class II symptoms. The most likely precipitating factor is the atrial tachycardia as noted above. 3. CAD - Pt has known CAD and is s/p PCI and CABG. Angiogram in 11/09 with patent LAD, patent SVG to diagonal, occluded RCA and SVG to RCA. Pt denies symptoms of angina. His troponin is wnl. Continue medical management. 4. Valvular heart disease - Pt is s/p mechanical AVR and MVR. He has normal valve function on his echocardiogram. Subjective: No chest pain No orthopnea or PND Dyspnea improved No pain at cardioversion site Ready to go home Rx [facility]. Objective: Vital Signs Temp Pulse Resp BP Pulse Ox 36.9 C 65 15 101/61 94 08/19/16 07:19 08/19/16 09:07 08/19/16 07:19 08/19/16 08:34 08/19/16 07:19 Laboratory Results 08/19/16 03:33 08/19/16 03:33 08/18/16 08/19/16 08/20/16 05:59 05:59 05:59 Intake Total 940 690 240 Output Total 1585 875 325 Balance -645 -185 -85 PT 37.0 SEC (12.0-15.0) H 08/19/16 03:33 INR 3.66 (0.83-1.16) H 08/19/16 03:33 Physical Exam - Physical Exam General Appearance: alert, no apparent distress Respiratory: lungs clear Cardiac/Chest: regular rate, rhythm Abdomen: non-tender, soft Neuro/Psych: alert, oriented x 3 ICD10 Worksheet Patient Problems: Problems Problem Status Onset Atrial tachycardia Acute Pulmonary edema Acute Acute on chronic systolic heart failure, NYHA class 3 Acute
[2016-08-19] MEDS ORDERED: AMIODARONE HCL 200 MG TAB PO SCH (10:00)
[2016-08-19 11:23] VITALS: BP 115/66; PULSE 60; RESP 11; TEMP 97.8; O2SAT 95
--- NOTE | 2016-08-19 11:32 | GDS ---
[f rep st] DISCHARGE SUMMARY DISCHARGE DIAGNOSES: 1. Atrial flutter with rapid ventricular response. 2. Pulmonary edema secondary to above. 3. History of aortic and mitral valve replacement. 4. Chronic kidney disease. 5. History of coronary artery disease. 6. History of brain injury, status post bypass surgery. 7. History of prostate cancer. 8. Obstructive sleep apnea. HISTORY: This is a 71-year-old male who presented with increasing dyspnea. HOSPITAL COURSE: Patient was noted to be in atrial fibrillation with rapid ventricular response. H vinnie also had some pulmonary edema on chest CT. It was attempted to cardiovert him chemically with ami odarone infusion, which did not work. He then had an electrical cardioversion done. He has remaine d in normal sinus rhythm. He will be discharged home. DISPOSITION: Home. DISCHARGE MEDICATIONS: His amiodarone will be increased to 200 mg daily. I am going to keep him on the same dose of Coumadin, but he does need to recheck his INR in the next several days due to the possible amiodarone interaction. TIME SPENT: Greater than 30 minutes was spent on discharge. /[id number]/MODL
[2016-08-19] MEDS: WARFARIN SODIUM 5 MG TAB PO SCH (15:40)
== END 2016-08-19 15:45 | disposition home or self-care (01) | DRG 291 ==
LOC: F2W 16:09
PROVIDERS: ADMIT Internal Medicine; ATTEND Internal Medicine
PROC: B246ZZ4 Ultrasonography of Right and Left Heart, Transesophageal (ICD-10-PCS; principal; 2016-08-18)
PROC: 5A2204Z Restoration of Cardiac Rhythm, Single (ICD-10-PCS; principal; 2016-08-18)
DX: I13.0 Hypertensive heart and chronic kidney disease with heart failure and stage 1 through stage 4 chronic kidney disease, or unspecified chronic kidney disease (principal); I50.23 Acute on chronic systolic (congestive) heart failure; I48.92 Unspecified atrial flutter; J81.1 Chronic pulmonary edema; I48.91 Unspecified atrial fibrillation; N18.9 Chronic kidney disease, unspecified; I25.10 Atherosclerotic heart disease of native coronary artery without angina pectoris; E11.9 Type 2 diabetes mellitus without complications; G47.33 Obstructive sleep apnea (adult) (pediatric); E78.5 Hyperlipidemia, unspecified; Z95.1 Presence of aortocoronary bypass graft; Z95.2 Presence of prosthetic heart valve; Z85.46 Personal history of malignant neoplasm of prostate; Z79.01 Long term (current) use of anticoagulants
CPT/HCPCS: 96374; 97161-GP; G8978-GP-CJ; G8979-GP-CI; J0282; J1940; J2704

== ENCOUNTER 2016-09-10 03:01 | Inpatient (IN) | payer OTHER, BC ==
--- NOTE | 2016-09-10 03:11 | CPEKG ---
Heart Rate: 63 RR Interval: 952 QRSD Interval: 92 QT Interval: 468 QTC Interval: 480 QRS Ola: 35 T Wave Ola: 74 EKG Severity - ABNORMAL ECG - EKG Impression: SINUS RHYTHM WITH MODERATE BASELINE ARTIFACT EKG Impression: MINIMAL ST DEPRESSION, ANTEROLATERAL LEADS EKG Impression: BORDERLINE PROLONGED QT INTERVAL Electronically Signed By: Baltazar Ny 11-Sep-2016 07:51:13
--- NOTE | 2016-09-10 03:41 | EDPHY ---
H & P Stated Complaint: SOB X2 WEEKS INCREASED WITH EXERTION, RECENT ADMIT=A-FIB, Time Seen by Provider: 09/10/16 03:11 HPI/ROS: Chief Complaint: Shortness of breath HPI: 71-year-old male with a history of coronary artery disease, heart valve replacement of his aortic and mitral valves who is been having worsening shortness of breath for the last 2 weeks. Patient states it is worse tonight. It is worse when he is lying down. He has had worsening dyspnea on exertion. Does sleep on 1 pillow and this is not unchanged. Has a history of recent admission for atrial fibrillation status post cardioversion last time was 3 weeks ago. Has also had 2 cardiac stents placed in the past. Was on home oxygen last December but [place] in [place] concentr[place] His primary care physician is told him at this time that he does not believe he needs it. He has not had any chest pain. He has been taking his medications as prescribed. ROS: 10 point Review of Systems is negative except as noted in the HPI. 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 Coronary artery disease Gentamicin toxicity Medications: Warfarin 6 mg a day, amiodarone, losartan, bupropion, simvastatin , carvedilol, Lasix Allergies: Gentamicin Social History: No smoking, occasional alcohol, no recreational drug use Family History: non-contributory Physical Exam: Gen: Awake, Alert, No Distress HEENT: Nose: no rhinorrhea Eyes: PERRLA, EOMI Mouth: Moist mucosa Neck: Supple, no JVD Chest: nontender, lungs clear to auscultation Heart: S1, S2 normal, no murmur Abd: Soft, non-tender, no guarding Back: no CVA tenderness, no midline tenderness Ext: no edema, non-tender Skin: no rash Neuro: CN II-XII intact, Sensation grossly intact, Strength 5/5 in bilateral upper and lower extremities - Personal History Current Tetanus/Diphtheria Vaccine: Yes Current Tetanus Diphtheria and Acellular Pertussis (TDAP): Yes - Medical/Surgical History Hx Asthma: No Hx Chronic Respiratory Disease: No Hx Diabetes: Yes Hx Cardiac Disease: Yes Hx Renal Disease: No Hx Cirrhosis: No Hx Alcoholism: No Hx HIV/AIDS: No Hx Splenectomy or Spleen Trauma: No Other PMH: 2 heart valves replaced (AVR and MVR) in 2002. 2 stent and CABG x 1 in 2002. Prostate cancer 2002 radiation in remission. 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, 2 fractured vertebrae, neck fusion 20 years ago, - Social History Smoking Status: Former smoker Constitutional: Initial Vital Signs Temperature (C) 36.8 C 09/10/16 03:05 Heart Rate 63 09/10/16 03:05 Respiratory Rate 18 09/10/16 03:05 Blood Pressure 132/80 H 09/10/16 03:05 O2 Sat (%) 95 09/10/16 03:05 O2 Delivery Mode Room Air O2 (L/minute) 2 Allergies/Adverse Reactions: gentamicin [Gentamicin] Allergy (Verified 09/10/16 03:14) Home Medications: Medication Instructions Recorded Bupropion HCl [Wellbutrin Xl] 300 mg PO DAILY 08/16/16 Carvedilol [Coreg] 12.5 mg PO BID 08/16/16 Furosemide [Lasix 40 MG (*)] 40 mg PO DAILY 08/16/16 Herbals/Supplements -Info Only 1 ea PO DAILY 08/16/16 Losartan Potassium [Cozaar 25 mg 25 mg PO DAILY 08/16/16 (*)] Metformin HCl [Metformin 1000 mg] 1,000 mg PO BID 08/16/16 Multivitamins [Multivitamin (*)] 1 each PO DAILY 08/16/16 Simvastatin 40 mg PO HS 08/16/16 Warfarin Sodium [Coumadin 1MG (*)] 2 mg PO DAILY18 08/16/16 Warfarin Sodium [Coumadin] 5 mg PO DAILY@18 08/16/16 Amiodarone HCl [Pacerone (*)] 200 mg PO DAILY #30 tab 08/19/16 Medical Decision Making - Diagnostics EKG Interpretation: ECG time 3:09 a.m.. Sinus rhythm with a rate of 63, normal axis, minimal ST depressions from V3 to be 5, unchanged from ECG on the 16 of August, borderline prolonged QT interval Imaging Results: Chest x-ray shows maybe some mild cephalization but no acute infiltrates or florid CHF. Imaging: I viewed and interpreted images myself ED Course/Re-evaluation: 71-year-old male presenting with worsening dyspnea on exertion and orthopnea worsening for the last 2 weeks with significantly worse tonight. ECG shows a sinus rhythm with no acute changes. Chest x-ray shows some mild cephalization but no dramatic failure. Patient's creatinine is 1.6 which is baseline. Satting well on room air however gets quite short of breath with ambulation here. I have discussed with Dr. Sullivan, hospitalist. Will admit to the hospital for further evaluation workup of his dyspnea. - Data Points Laboratory Results: Laboratory Results 09/10/16 03:25 09/10/16 03:25 09/10/16 09/10/16 09/10/16 03:25 03:25 03:25 WBC 6.81 10^3/uL 10^3/uL (3.80-9.50) RBC 3.95 10^6/uL L 10^6/uL (4.40-6.38) Hgb 12.2 g/dL L g/dL (13.7-17.5) Hct 36.6 % L % (40.0-51.0) MCV 92.7 fL fL (81.5-99.8) MCH 30.9 pg pg (27.9-34.1) MCHC 33.3 g/dL g/dL (32.4-36.7) RDW 15.5 % H % (11.5-15.2) Plt Count 252 10^3/uL 10^3/uL (150-400) MPV 10.5 fL fL (8.7-11.7) Neut % (Auto) 66.9 % % (39.3-74.2) Lymph % (Auto) 15.4 % % (15.0-45.0) Caroline % (Auto) 11.0 % % (4.5-13.0) Eos % (Auto) 5.4 % % (0.6-7.6) Baso % (Auto) 0.7 % % (0.3-1.7) Nucleat RBC Rel Count 0.0 % % (0.0-0.2) Absolute Neuts (auto) 4.55 10^3/uL 10^3/uL (1.70-6.50) Absolute Lymphs (auto) 1.05 10^3/uL 10^3/uL (1.00-3.00) Absolute Monos (auto) 0.75 10^3/uL 10^3/uL (0.30-0.80) Absolute Eos (auto) 0.37 10^3/uL 10^3/uL (0.03-0.40) Absolute Basos (auto) 0.05 10^3/uL 10^3/uL (0.02-0.10) Absolute Nucleated RBC 0.00 10^3/uL 10^3/uL (0-0.01) Immature Gran % 0.6 % % (0.0-1.1) Immature Gran # 0.04 10^3/uL 10^3/uL (0.00-0.10) PT 27.5 SEC H SEC (12.0-15.0) INR 2.53 H (0.83-1.16) APTT 41.1 SEC H SEC (23.0-38.0) Sodium 142 mEq/L mEq/L (134-144) Potassium 4.5 mEq/L mEq/L (3.5-5.2) Chloride 109 mEq/L mEq/L (97-110) Carbon Dioxide 21 mEq/l L mEq/l (22-31) Anion Gap 12 mEq/L mEq/L (8-16) BUN 25 mg/dL H mg/dL (7-23) Creatinine 1.6 mg/dL H mg/dL (0.7-1.3) Estimated GFR 43 Glucose 168 mg/dL H mg/dL (70-100) Calcium 9.0 mg/dL mg/dL (8.5-10.4) Troponin I 0.016 ng/mL ng/mL (0-0.034) Departure - Departure Disposition: [facility] Inpatient Acute Clinical Impression: Dyspnea Condition: Fair Referrals: Heriberto Tavarez MD [Primary Care Provider] - As per Instructions
[2016-09-10 03:44] LABS: % IMMATURE GRANULYOCYTES 0.6 % (0.0-1.1); ABSOLUTE IMMATURE GRANULOCYTES 0.04 10^3/uL (0.00-0.10); ADD DIFF? NO; ADD MORPH? NO; ADD SCAN? NO; ATYPICAL LYMPHOCYTE FLAG 0 (0-99); FRAGMENT RBC FLAG 0 (0-99); HEMATOCRIT 36.6 % (40.0-51.0); HEMOGLOBIN 12.2 g/dL (13.7-17.5); LEFT SHIFT FLG 0 (0-99); LIPEMIA HEMOLYSIS FLAG 80 (0-99); MEAN CELL HEMOGLOBIN 30.9 pg (27.9-34.1); MEAN CELL HEMOGLOBIN CONCENTR. 33.3 g/dL (32.4-36.7); MEAN CELL VOLUME 92.7 fL (81.5-99.8); MEAN PLATELET VOLUME 10.5 fL (8.7-11.7); PLATELET CLUMPS FLAG 0 (0-99); PLATELET COUNT 252 10^3/uL (150-400); RED BLOOD CELL COUNT 3.95 10^6/uL (4.40-6.38); RED CELL DISTRIBUTION WIDTH 15.5 % (11.5-15.2)
[2016-09-10 03:55] LABS: ANION GAP 12 mEq/L (8-16); CARBON DIOXIDE 21 mEq/l (22-31); CHLORIDE 109 mEq/L (97-110); CREATININE 1.6 mg/dL (0.7-1.3); GLOMERULAR FILTRATION RATE 43; GLUCOSE 168 mg/dL (70-100); POTASSIUM 4.5 mEq/L (3.5-5.2); SODIUM 142 mEq/L (134-144)
[2016-09-10 04:03] LABS: INR 2.53 (0.83-1.16); PROTIME(PATIENT) 27.5 SEC (12.0-15.0)
[2016-09-10 04:04] LABS: APTT 41.1 SEC (23.0-38.0)
[2016-09-10 04:07] LABS: TROPONIN I 0.016 ng/mL (0-0.034)
[2016-09-10] MEDS ORDERED: ONDANSETRON DISINTEGRATING 4 MG TAB PO PRN (05:20)
[2016-09-10] MEDS ORDERED: ACETAMINOPHEN 325 MG TAB PO PRN (05:20)
[2016-09-10] MEDS ORDERED: oxyCODONE IR 5 MG TAB PO PRN (05:20)
--- NOTE | 2016-09-10 09:36 | GHP ---
[f rep st] HISTORY AND PHYSICAL DATE OF ADMISSION: 09/10/2016 CHIEF COMPLAINT: Shortness of breath. HISTORY OF PRESENT ILLNESS: This is a 71-year-old man with a significant cardiac history who presen ts with shortness of breath. Notably, he was admitted here from 08/16 through 08/19 with atrial flu tter, underwent a DC cardioversion after failing amiodarone. He was then discharged reportedly with no changes in his medications. He has felt dyspneic since then which got much worse today. He has some orthopnea as well as dyspnea on exertion. He has coronary artery disease, status post PCI which was complicated by multivalve endocarditis wit h subsequent CABG as well as mechanical AVR and MVR. He tells me he has had a stress test, but it h as been a few years. PAST MEDICAL/SURGICAL HISTORY: 1. CKD. 2. Mechanical AVR and MVR. 3. Coronary artery disease, status post CABG. 4. TBI. 5. Prostate cancer. 6. CHF with an EF of 40%. 7. Massive transfusion with 83 units of blood product due to intrathoracic hemorrhage post bypass. 8. BUCKY, on CPAP. 9. Chronic dizziness. 10. Hypertension. MEDICATIONS: Please see medication reconciliation. ALLERGIES: Gentamicin with a history of generalized toxicity. FAMILY HISTORY: Renal disease and heart disease. SOCIAL HISTORY: He lives in [place]. He has never been . REVIEW OF SYSTEMS: A 10-point review of systems is conducted in is negative except per HPI. PHYSICAL EXAM: VITAL SIGNS: Blood pressure is 132/80, heart rate 63, respiration rate 18, sating 9 5% on room air. Temperature is 36.8. GENERAL: The patient is a pleasant man who is resting relati vely comfortably in no acute distress. HEENT: Mucous membranes moist. CARDIOVASCULAR: Regular ra te and rhythm. He has a notable clicking in his S1 as well as S2. PULMONARY: He is in mild respir atory distress. There are no rales. He is clear bilaterally. ABDOMEN: Soft. He is obese, but he is nontender to palpation. SKIN: No rash. : No Craig. NEUROLOGIC: He is alert and oriented x3. EXTREMITIES: No lower extremity edema. PSYCHIATRIC: Normal mood and affect. LABORATORY: Hemoglobin is 12.2. INR is 2.53. Basic metabolic panel normal. Electrolytes are norm al. Creatinine is 1.6. DATA: 1. I discussed this with Dr. Randhawa in the emergency department. We will admit to the PCU. 2. I personally viewed and interpreted his chest x-ray. This shows cardiomegaly. He has 2 valve r eplacements. He has mild prominence of his pulmonary vasculature. 3. EKG, which I personally viewed and interpreted, shows sinus rhythm. There are mild ST depressio ns in his lateral leads. IMPRESSION AND PLAN: A 71-year-old man with worsening dyspnea on exertion. 1. Dyspnea: This is subjective. I think Cardiology should be consulted in the morning. Would con double back operator treating this as an anginal equivalent and considering an ischemic eval while he is here. Rommel rajan defer this to Cardiology though. I have also ordered a BNP and this is pending. 2. Coronary artery disease, status post percutaneous coronary intervention: Will continue his card iac medication. 3. Chronic kidney disease: He is at his baseline. 4. History of aortic valve replacement and mitral valve replacement: He is adequately anticoagulat ed with an INR of 2.53. I presume that his INR goal is 2.5-3.5 given his mechanical mitral valve. 5. Atrial flutter with recent rapid ventricular response: He is currently in sinus rhythm. He is anticoagulated. 6. Congestive heart failure: His last echocardiogram showed an ejection fraction of 40%. We will continue his cardiac medications and those are reconciled. 7. Code status is full. /[id number]/MODL
[2016-09-10] MEDS ORDERED: NON-FORMULARY NEW DRUG (Carvedilol [Coreg] 12.5 MG) PO SCH (10:45)
[2016-09-10] MEDS ORDERED: NON-FORMULARY NEW DRUG (Bupropion Hcl [Wellbutrin Xl] 300 MG) PO SCH (10:45)
--- NOTE | 2016-09-10 11:22 | WOCRNPDOC ---
WOCRN Advanced Assessment Note - Skin Integrity Problem, Advanced Assess Left Anterior Lower Leg Scab Dressing Type: Open to Air Exudate Color: Brown Exudate Characteristic(s): Dried Indy Wound Tissue: Swollen Indy Wound Swelling: Moderate Wound Bed Color: Brown Wound Bed Constitution: Scab Site Odor: None Site Measurement - Head-to-Toe Length X Width X Depth (cm): [id number] scab Skin Integrity Problem Comment: Intact, dried scab on L anterior lower leg, distal to L knee. Patient reports this injury was sustained during a fall in which he struck his saenz very hard. Wound RN consulted because handicrafts teacher concerned about possible underlying hematoma. Presently, there is an area of significant swelling surrounding this scab. However, no fluctuance palpated and there is no ecchymosis or discoloration over the swollen area. Tissues are firm , and patient c/o 1/10 pain during this assessment. Order to cover scabbed area w/ wound gel and foam dressing, and to continue to monitor surrounding tissues ongoing for increased swelling, pain, or drainage. handicrafts teacherTOMASA Perez present and assisting. No need for wound care to follow; reconsult PRN. Bilateral Groin Dressing Type: Open to Air Exudate Amount: None Exudate Characteristic(s): None Wound Bed Color: Red Skin Integrity Problem Comment: Raw, denuded skin noted in bilateral groin folds , and on lateral testicles where skin comes into contact w/ inner thigh. Appearance is consistent w/ moisture-associated skin damage and friction. Site is also malodorous, indicating a need for more thorough cleansing. One package of Interdry sheets sent down to handicrafts teacherTOMASA Perez, to better manage moisture and friction. Wound RN does not need to follow this patient ongoing, and nursing is advised to reconsult as needed.
--- NOTE | 2016-09-10 11:45 | HOSPPROG ---
Hospitalist Progress Note Assessment/Plan: 71 yo M w/hx of CAD, VHD with mechanical aortic and mitral valves as well as untreated BUCKY and prior hypoxic respiratory failure treated with supplemental o2 presenting with sob and mild hypoxia # hypoxia: with only recorded desaturation to 89%, maintaining sats in mid 90s otherwise for the most part. CXR personally reviewed and no e/o pna, pulmonary edema or other acute abnormality--does have LLL atelectasis which is improved from prior. Denies chest pain, no tachycardia and chronically anticoagulated so doubt PE. BNP improved from prior. Echo report pending, however on discussion with cardiology, appears similar/improved from prior. Plan for nuc stress in am. He had been on chronic supplemental o2 until recent 7 month trip to [facility] # chronic diastolic/systolic heart failure: with prior EF of 40%, echo repeated today and appears improved. No e/o significant volume overload on exam. Continue op medications including lasix, bb, arb, statin. # ckd: with baseline creatinine of 1.7 and currently at baseline # CAD: hx of CABG and stents, ischemic eval pending as above # VHD: with mechanical MV/mechanical AV. Repeat echo report pending but reported as no new valve issues, echo from 08/16/16 showing normal gradients # BUCKY: untreated currently, previously was an nocturnal o2, needs formal sleep study # DM: will hold metformin, patient is borderline for this medication anyway given renal function, will start SSI # a flutter: s/p CV, on review of telemetry appears to be in SR currently, continue AC/BB # chronic medical issues: HLD, hx of prostate cancer, hx of endocarditis # IP status, given multiple active medical issues and medical complexity will require > 48 hours for eval/mgmt of above Patient new to my care. Old records reviewed and summarized as above. Care plan reviewed with cardiology including plans for stress test in am. Subjective: no significant overnight events, patient is still feeling sob though feels better with o2 in place, no chest pain or palpitations Objective: Vital Signs Temp Pulse Resp BP Pulse Ox 36.5 C 57 L 20 119/67 99 09/10/16 08:00 09/10/16 08:00 09/10/16 08:00 09/10/16 08:00 09/10/16 08:00 PT 27.5 SEC (12.0-15.0) H 09/10/16 03:25 INR 2.53 (0.83-1.16) H 09/10/16 03:25 awake alert nad anicteric op clear rrr no mrg dec bs at bases, no wrr obese soft nt no cce warm dry well perfused oriented appropriate - Time Spent With Patient Time Spent with Patient: greater than 35 minutes Time Spent with Patient: Greater than 35 minutes spent on this patients care, greater than 50% of time spent counseling, educating, and coordinating care regarding the above mentioned plan. ICD10 Worksheet Patient Problems: Problems Problem Status Onset Acute on chronic systolic heart failure, NYHA class 3 Acute Atrial tachycardia Acute Pulmonary edema Acute Dyspnea Acute
[2016-09-10] MEDS ORDERED: D50W 25 GM/50 ML SYR IVP PRN (11:54)
[2016-09-10] MEDS: buPROPion XL 150 MG TAB PO SCH (12:08)
[2016-09-10] MEDS: AMIODARONE HCL 200 MG TAB PO SCH (12:08)
[2016-09-10] MEDS: LOSARTAN POTASSIUM 25 MG TAB PO SCH (12:08)
[2016-09-10] MEDS: CARVEDILOL 6.25 MG TAB PO SCH (12:09)
[2016-09-10] MEDS: INSULIN LISPRO 100 UNIT/ML SC SCH ×2 (12:34→18:41)
--- NOTE | 2016-09-10 15:05 | ECHO ---
[id number] + + [address] : : [place] [address] : : [phone] + + Adult Echocardiographic Report + ---------+ :Name: NAJMA SIMMONS LStudy Date: 09/10/2016 10:40 AM : : Hospital Admission Number: [id number] Marybeth pepper: 222: :: 1945 Gender: Male Height: 73 i n : :Age: 71 yrs Weight: 270 lb : :Reason For Study: Eval LV Fx : : BSA: 2.4 met ers2 : :History: Hx of AVR, MVR : + ---------+ MMode/2D Measurements \T\ Calculations IVSd: 1.2 cm LVIDd: 4.8 cmFS: 30.8 % LVLd ap4: 6.9 cm LVPWd: 1.2 cm LVIDs: 3.3 cmEDV(Teich): 108.5 mlEDV(MOD-sp4): 79.0 ml ESV(Teich): 45.3 ml LVLs ap4: 6.7 cm EF(Teich): 58.2 % ESV(MOD-sp4): 36.0 ml EF(MOD-sp4): 54.4 % SV(MOD-sp4): 43.0 ml Normal Measurement Values: + + :LVIDd (3.5-5.7cm) IVSd (0.6-1.1cm) LVPWd (0.6-1.1cm) Aortic Root (2.0-3.7cm)Left Atrium (1.5-4.0cm): :LV Vol(d) (76-115ml) LV Vol(s) (29-48ml) Ejec Fraction (50-65%)PV Huy (0.6- 1.2m/s) TV Huy (0.4-1.0m/s) : :MV E Huy (0.8-1.0m/s)MV A Huy (0.3-1.0m/s)LVOT Huy (0.7-1.2m/s) Asc Ao Huy ( 0.9-1.8m/s) : + + Doppler Measurements \T\ Calculations MV V2 mean: 70.7 cm/sec Ao V2 max: 196.8 cm/sec TR max huy: 268.8 cm/sec MV mean P.4 mmHg Ao max P.5 mmHg TR max P.9 mmHg MV V2 VTI: 42.3 cm Ao mean P.6 mmHg RAP systole: 5.0 mmHg Ao V2 mean: 156.6 cm/sec RVSP(TR): 33.9 mmHg Ao V2 VTI: 45.2 cm Left Ventricle The left ventricle is normal in size. There is normal left ventricular wall thickness. Ejection Fraction = 50-55%. There is inferoseptal dyskinesis. Pericardium/Pleural There is no pericardial effusion. Conclusion This is a limited echo to evaluate LV Fx. Limited echo to assess LV function. Ejection Fraction = 50-55%. Septal wall motion abnormality likely related to prior cardiac surgery. There is no pericardial effusion. Final Reading Physician: Rizwan Azar signed on 09/10/2016 03:04 PM Ordering Physician: Britta Smith Performed By: Munir Smith, ELIFCS
[2016-09-10] MEDS ORDERED: WARFARIN SODIUM 3 MG TAB PO SCH (18:00)
--- NOTE | 2016-09-10 18:17 | GCON ---
[f rep st] CONSULTATION CARDIOLOGY CONSULTATION. REASON FOR CONSULTATION: We were asked by Dr. Sullivan of Hospital Medicine to evaluate the patient for his worsening dyspnea. Primary research coordinator is Dr. Tejeda. Primary care physician is Dr. Tavarez. HISTORY OF PRESENT ILLNESS: The patient is a 71-year-old male with a complex cardiac history includ ing remote history of CAD with PCIs. This was complicated by multi valve endocarditis with subseque nt CABG, mechanical AVR and MVR back in 2002. He was admitted in July from the through the h with atrial tachycardia after noting a several week history of progressive fatigue, dyspnea, and c ough. He had returned from the [facility] on July 27 and was in his usual health. Upon his retur n he started to have worsening symptoms. EKG found that he was in an atrial tachycardia with an ronan vated BNP at 3270. He had negative troponin. CT of chest showed an elevated hemidiaphragm. He was treated with a MARCE-guided cardioversion. After discharge he reports he never really felt that much improved. Last night, his symptoms got to the point where he could not lie down as he felt he was not able to breathe. He denies any associated chest pain, peripheral edema, palpitations, presyncop e, syncope. He has a known history of undertreated sleep apnea as he only uses nocturnal oxygen. Brigida [place] has been intolerant of CPAP. He also has known [id number] diabetes, hypertension, dysl ipidemia, and obesity with a BMI of 35. PAST MEDICAL HISTORY: 1. CKD with typical baseline at 1.3, but recently labs with this admission his creatinine is up to 1.6. 2. Mechanical AVR and MVR in 2002. 3. Coronary artery disease with bypass in 2002. Last left heart catheterization is dated 6, and he is found to have patent SVG to diagonal, DURAND to LAD with 100% occluded. He had an occlud ed RCA and SVG to RCA. 4. Traumatic brain injury. 5. Prostate cancer. 6. Systolic CHF with his last admission with EF of 40%. Previous echo to that showed LVEF of 50% t o 55%. 7. Massive transfusion due to intrathoracic hemorrhage at the time of his bypass. 8. BUCKY, only on nocturnal oxygen. 9. Chronic dizziness related to gentamicin. 10. Hypertension. 11. Obesity. MEDICATIONS: Please see med reconciliation. ALLERGIES: Gentamicin. FAMILY HISTORY: Renal and heart disease. SOCIAL HISTORY: He lives in [place]. He travels to the [facility] fairly regularly. He is a no nsmoker. REVIEW OF SYSTEMS: As per HPI. A complete 10-point review of systems was obtained and is negative except for what is dictated. PHYSICAL EXAM: VITAL SIGNS: BP of 119/67, heart rate 57, respirations 20, O2 saturation 99% on 2 L /minutes, temp of 97.7 degrees Fahrenheit. GENERAL: He is a pleasant male in no apparent distress. EYES: Without scleral icterus. HEAD: Normocephalic atraumatic. EARS: No gross auditory defici ts detected. HEART: Regular rate and rhythm. Distant heart sounds. LUNGS: Clear bilaterally. A BDOMEN: Soft with normoactive bowel sounds. SKIN: Warm and dry. There is a left anterior saenz he matoma with eschar detected. PSYCH: Normal mood and affect. NEURO: No focal deficits detected. LABS: CBC with WBC 6.1, hemoglobin 12.2, hematocrit 36.6, platelet count of 252. INR of 2.53. BMP with sodium 142, potassium 4.5, chloride 109, CO2 21, BUN 25, creatinine 1.6, glucose 168. NT proB ELECTROTHERAPIST of 919. Troponin 0.016 and then 0.016. 12-lead ECG is not able to be viewed on [employer] cur rently. Chest x-ray from 09/10/2016, shows improved left basilar atelectasis in July of 2016. I sp tito with Dr. Sullivan regarding patient's care. Telemetry was reviewed and just shows sinus rhythm . IMPRESSION AND PLAN: The patient is a 71-year-old male with worsening dyspnea on exertion as well a s at rest. 1. Dyspnea. The patient was hospitalized for this in July and was found to be in atrial tachycardi a. Right now he actually is in sinus rhythm. His BNP is lower than previous. He cannot recall wha t his anginal equivalent was that proceeded needing stenting in the past. He has ruled out via enzy mes. We will recheck an echo and see if his ejection fraction has returned to his previous baseline of 50% to 55%. If he is still at 40% he may warrant further cardiac testing, provocative versus in vasive. I will review this with Dr. Miguel. 2. Coronary artery disease. His cardiac medications have been continued. We will recheck an echo as stated above. 3. Chronic kidney disease. He is a little bit above his baseline. 4. History of AVR and MVR. His last echo from July shows appropriately functioning valves. 5. Atrial tachycardia. He is chronically anticoagulated given his prosthetic valves. 6. Systolic congestive heart failure. Currently, he actually appears fairly euvolemic. /[id number]/MODL
[2016-09-10] MEDS ORDERED: ATORVASTATIN CALCIUM 20 MG TAB PO SCH (21:00)
[2016-09-10] MEDS ORDERED: NON-FORMULARY NEW DRUG (Simvastatin [Simvastatin] 40 MG) PO SCH (21:00)
[2016-09-11] MEDS: CARVEDILOL 6.25 MG TAB PO SCH ×2 (04:52→08:31)
[2016-09-11] MEDS: LOSARTAN POTASSIUM 25 MG TAB PO SCH (08:30)
[2016-09-11] MEDS: buPROPion XL 150 MG TAB PO SCH (08:31)
[2016-09-11] MEDS: AMIODARONE HCL 200 MG TAB PO SCH (08:31)
[2016-09-11] MEDS: INSULIN LISPRO 100 UNIT/ML SC SCH ×2 (08:32→13:27)
[2016-09-11] MEDS ORDERED: FUROSEMIDE 40 MG TAB PO SCH (09:00)
[2016-09-11] MEDS ORDERED: MULTIVITAMINS 1 EACH TAB PO SCH (09:00)
[2016-09-11] MEDS ORDERED: REGADENOSON 0.4 MG/5 ML SYR IVP ONE (09:51)
--- NOTE | 2016-09-11 11:54 | PDCARST ---
CAR Stress Test Results Type of Stress Test: Lexiscan stress test Indication: shortness of breath/CAD Description of Procedure: After informed consent was obtained, pt was established to ECG, blood pressure, HR and oximetry monitoring. STRESS EKG AND HEMODYNAMIC DATA. Resting heart rate: 60 BPM. Resting ECG: SR diffuse ST abn. Resting blood pressure: 98/68 mmHg. O2 saturation at rest: 95%. Peak heart rate: 69 BPM. Peak blood pressure: 110/70 mmHg. Arrhythmias: none. Symptoms: The patient experienced no typical symptoms of angina during stress or recovery. Stress/Infusion ECG: No change in rhythm with no significant ST/T wave changes. Stress/infusion O2 saturation: 98 Impression: uneventful Lexiscan infusion Conclusion: Await nuclear images.
--- NOTE | 2016-09-11 14:38 | PDCARPN ---
Cardiology Progress Note Chief Complaint: shortness of breath/orthopnea Assessment/Plan: Assessment: 71M with PMH CAD/PCIs, c/b multivalve endocarditis requiring CABG/ mechanical AVR/MVR in 2002, htn, obesity BMI 36, T2DM, SCHF in setting of AT, admitted for AT last month and proceeded to MARCE-guided MARCE/CV. Since discharge did not feel improved in regards to his dyspnea. #. shortness of breath: EF 50-55% on echo and MPI negative for ischemia #. hypoxic respiratory failure: O2 sat of 84% even on O2 we reviewed that he likely needs to start O2 for daytime use #. SCHF: EF improved in SR #. BUCKY: did not tolerate CPAP we discussed that he needs to have that rechecked as that is likely largely contributing to his dyspnea #. obesity: BMI 36 advised him on weight loss Plan: OK to d/c from cardiac perspective with oxygen therapy. Refer for sleep study. 09/11/16 14:30 Subjective: Continues to feel short of breath. Reviewed/Discussed With: hospitalist Objective: Vital Signs (8 Hrs) Temp Pulse Resp BP Pulse Ox 09/11/16 11:46 98.2 F 59 L 15 107/58 L 98 09/11/16 08:00 98.1 F 60 17 126/68 H 98 Intake/Output (24 Hrs) 09/10/16 09/11/16 09/12/16 05:59 05:59 05:59 Intake Total 1210 Balance 1210 Intake: Oral (ml) 1210 Other: Weight 123.7 kg Number of Voids Toilet 2 Result Diagrams: 09/10/16 03:25 09/10/16 03:25 Cardiac Labs: Cardiac Lab Results (72 Hrs) 09/10/16 09/10/16 15:45 09:53 Troponin I 0.014 0.016 Telemetry: SR - Physical Exam Constitutional: no apparent distress Ears, Nose, Mouth, Throat: moist mucous membranes Cardiovascular: regular rate and rhythm Psychiatric: cooperative, interactive ICD10 Worksheet Patient Problems: Problems Problem Status Onset Acute on chronic systolic heart failure, NYHA class 3 Acute Atrial tachycardia Acute Pulmonary edema Acute Dyspnea Acute
[2016-09-11 15:44] VITALS: BP 104/64; PULSE 60; RESP 10; TEMP 97.6; O2SAT 98
--- NOTE | 2016-09-12 10:23 | GDS ---
[f rep st] DISCHARGE SUMMARY DISCHARGE DIAGNOSES: 1. Dyspnea likely related to obesity, hypoventilation, as well as undertreated sleep apnea. 2. Coronary artery disease with previous percutaneous interventions as well as CABG with no evidenc e of ACS on this admission and normal MPI. 3. Obesity with a BMI of 36. 4. Previous diagnosis of obstructive sleep apnea, intolerant of CPAP. 5. Hypoxic respiratory failure with O2 saturation of 84% on 2 L/min, corrected to 92% on 3 L per mi nute. 6. Systolic congestive heart failure with improvement in ejection fraction to 50% to 55% on this ad mission. 7. Atrial tachycardia with recent MARCE guided cardioversion in July. 8. Mechanical aortic valve replacement and mitral valve replacement in 2002. 9. Type 2 diabetes mellitus. 10. Hypertension. 11. Prostate cancer. 12. Chronic dizziness related to previous gentamicin. PROCEDURES: 1. 09/10/2016: Chest x-ray with improved left basilar atelectasis since July of 2016. 2. 09/10/2016: Echocardiogram that was a limited study as previous echo was last month. This was to recheck EF and EF was 50% to 55%. 3. 09/11/2016: Nuclear stress test which showed no evidence of reversible ischemia. EF of 61% wit h normal wall motion. CONSULTATIONS: Hospital Medicine. BRIEF HISTORY: Please see dictated H and P for complete details. In brief, Mr. Villa Ragland is a 71-year-old male with a history of remote CAD with PCI. This was complicated by multi-valve endo carditis requiring subsequent CABG and mechanical AVR and MVR in 2002. He was admitted last month f rom August 16 to August 19 with atrial tachycardia after noting several weeks of progressive fatigue and dyspnea. EKG found that he was in atrial tachycardia and BNP was elevated at 3270. CT of chest sh owed an elevated hemidiaphragm and he was properly anticoagulated on his Coumadin with therapeutic I NRs. He proceeded to MARCE-guided cardioversion. Since discharge he has not noted much improvement i n his symptoms. HOSPITAL COURSE BY PROBLEM: 1. Shortness of breath. His echo shows improvement in his ejection fraction and his nuclear stress test was negative for ischemia. He has not had elevated troponins. His dyspnea is likely related to obesity, hypoventilation, and undertreated sleep apnea. He is being started on oxygen for contin uous usage. He is being referred for sleep study. 2. Hypoxic respiratory failure. He is advised to see Pulmonology for this. 3. Systolic congestive heart failure. His ejection fraction is now improved. 4. Obstructive sleep apnea, intolerant of CPAP in the past. He reports a sleep study 10 years ago. We discussed that this should be repeated now. 5. Obesity with a BMI of 36. He is advised on weight loss to help improve his dyspnea. 6. Chronic kidney disease. His baseline creatinine is around 1.3 to 1.6. 7. Type 2 diabetes mellitus. His blood sugars were mostly controlled in this admission. His home insulin regimen may be continued. PHYSICAL EXAMINATION: VITAL SIGNS: On day of discharge, blood pressure 104/64, heart rate of 60, r espirations 10, O2 saturation 98% on 2 L/min. GENERAL: He is a pleasant man in no apparent distres s. EYES: PERRL. HEART: Regular rate and rhythm. LUNGS: Diminished without rales or rhonchi. A BDOMEN: Obese with normoactive bowel sounds. SKIN: Warm and dry. There is a left anterior saenz h ematoma that has been evaluated by wound care. RESULTS PENDING: None. DIET: Cardiac and diabetic diet recommended. ACTIVITY: As tolerated. DISCHARGE MEDICATIONS: He is being discharged to home with all his home medications. He may contin ue Tylenol, amiodarone, atorvastatin, Wellbutrin, carvedilol, furosemide, insulin, losartan, multivi tamin, and warfarin. He is being started on oxygen for continuous usage. FOLLOWUP INSTRUCTIONS: Follow up with Fanta Bueno scheduled for 09/17/2016. /[id number]/MODL
== END 2016-09-11 17:15 | disposition home or self-care (01) | DRG 205 ==
LOC: INTOOBSV 04:56 → OBSVTOIN 05:20 → F2W 06:00
PROVIDERS: ADMIT Student in an Organized Health Care Education/Training Program; ATTEND Student in an Organized Health Care Education/Training Program
DX: E66.2 Morbid (severe) obesity with alveolar hypoventilation (principal); J96.01 Acute respiratory failure with hypoxia; I48.91 Unspecified atrial fibrillation; I25.10 Atherosclerotic heart disease of native coronary artery without angina pectoris; I13.0 Hypertensive heart and chronic kidney disease with heart failure and stage 1 through stage 4 chronic kidney disease, or unspecified chronic kidney disease; I50.20 Unspecified systolic (congestive) heart failure; E11.22 Type 2 diabetes mellitus with diabetic chronic kidney disease; N18.9 Chronic kidney disease, unspecified; R42 Dizziness and giddiness; T36 Poisoning by, adverse effect of and underdosing of systemic antibiotics; Z68.36 Body mass index [BMI] 36.0-36.9, adult; Z95.2 Presence of prosthetic heart valve; Z95.5 Presence of coronary angioplasty implant and graft; Z98.1 Arthrodesis status; Z85.46 Personal history of malignant neoplasm of prostate; Z92.3 Personal history of irradiation; Z95.1 Presence of aortocoronary bypass graft; Z87.891 Personal history of nicotine dependence
CPT/HCPCS: 97116-GP; 97161-GP; A9500; G8978-GP-CJ; G8979-GP-CI; J1815; J2785

== ENCOUNTER 2016-12-28 12:47 | Emergency (ER) | payer OTHER, BC ==
--- NOTE | 2016-12-28 14:34 | CPEKG ---
Heart Rate: 54 RR Interval: 1111 P-R Interval: 200 QRSD Interval: 86 QT Interval: 492 QTC Interval: 467 P [place]: 60 QRS [place]: 41 T Wave [place]: -35 EKG Severity - NORMAL ECG - EKG Impression: SINUS RHYTHM Electronically Signed By: Michelle De Luna 28-Dec-2016 20:56:45
--- NOTE | 2016-12-28 14:34 | CPEKG ---
Heart Rate: 54 RR Interval: 1111 P-R Interval: 200 QRSD Interval: 86 QT Interval: 492 QTC Interval: 467 P [place]: 60 QRS [place]: 41 T Wave [place]: -35 EKG Severity - NORMAL ECG - EKG Impression: SINUS RHYTHM Electronically Signed By: Michelle De Luna 28-Dec-2016 20:56:45
[2016-12-28 14:43] LABS: PLATELET COUNT 231 10^3/uL (150-400)
--- NOTE | 2016-12-28 15:02 | EDPHY ---
H & P Time Seen by Provider: 12/28/16 14:16 HPI/ROS: HPI Cough, shortness of breath. 71-year-old male by private vehicle. He complains of a cough, intermittent for the last 2 weeks. He reports the cough is intermittently productive of a green sputum. He reports the cough has worsened over the last 2-3 days and was specifically worse last night. He has associated shortness of breath with the cough. No fever. No myalgias or arthralgias. No other complaints. ROS: Constitutional: No fever, no chills. No weakness. Eyes: No discharge. No changes in vision. ENT: No sore throat. No nasal congestion or rhinorrhea. Respiratory: As above. No shortness of breath. Cardiac: No chest pain, no palpitations. Gastrointestinal: No abdominal pain, no vomiting, no diarrhea. Genitourinary: No hematuria. No dysuria or increased frequency with urination. Musculoskeletal: No back pain. No neck pain. No myalgias or arthralgias. Skin: No rashes. Neurological: No headache. No focal weakness or altered sensation. Past medical history: CABG, heart valve replacements, [place], on Coumadin, prostate cancer, sleep apnea, AFib, vestibular problem causing chronic vertigo. Customer Relations Coordinator is Dr. Cong Tejeda. Social history: Nonsmoker. Here with friend. Denies alcohol. Physical Exam: General Appearance: Alert, no distress. Large man. This patient is responding to questions appropriately and in full sentences. This patient appears well-hydrated and well-nourished. Eyes: Pupils equal and round no pallor or injection. No lid edema, erythema or injection. Respiratory: There are no retractions, lungs are clear to auscultation with good air movement bilaterally. No wheezing. No rhonchi. No tachypnea. Cardiovascular: Regular rate and rhythm. Mechanical heart valve sounds. Gastrointestinal: Abdomen is soft and nontender, no masses, bowel sounds normal. No focal tenderness at McBurney's point. No Garcia sign. Neurological: Motor sensory function is grossly intact. Cranial nerves are normal. Gait is normal. Skin: Warm and dry, no rashes. Musculoskeletal: Neck is supple and nontender. Extremities are symmetrical. All joints range without pain or impingement. Psychiatric: No agitation. No depression. Database: EKG: EKG time is 2:33 p.m.; EKG shows a narrow complex normal sinus rhythm with a ventricular rate of 54. The [place], QRS, QT intervals are within normal limits. There are no ST-T wave changes indicative of ischemic or injury pattern. No evidence of right heart strain. Interpreted by me. Imaging: Chest x-ray PA and lateral; the cardiac mediastinal silhouette is unremarkable. Mechanical heart valves noted. Left basilar atelectasis perhaps slightly worse from prior x-ray July of 2016 No evidence of infiltrate or pneumothorax. Probable bronchitis. No other acute cardiopulmonary disease process noted. Interpreted by me. Procedures: Emergency department course: Vital signs reviewed and are unremarkable. Patient is afebrile. Pulse oximetry is 96% on room air. Patient given an albuterol/Atrovent nebulizer treatment. He was given Tessalon Perle and 10 mg of IV Decadron to treat his cough/bronchitis. He was given 500 mg of oral azithromycin. 3:50 p.m., patient re-evaluated. He is feeling better at this time. Vital signs reviewed. He feels comfortable going home and I feel he is safe for discharge. Strict return to emergency department precautions were reviewed with him. Follow-up was discussed. All of his questions were answered. He has an albuterol inhaler at home. All of his questions were answered. He was discharged in good condition. Differential Diagnosis: The differential diagnosis on this patient includes but is not limited to bronchitis. This represents a partial list of diagnoses considered. These considerations are based on history, physical exam, past history, reassessment and diagnostic testing. Smoking Status: Former smoker Constitutional: Initial Vital Signs Temperature (C) 36.5 C 12/28/16 12:50 Heart Rate 62 12/28/16 12:50 Respiratory Rate 18 12/28/16 12:50 Blood Pressure 145/82 H 12/28/16 12:50 O2 Sat (%) 96 12/28/16 12:50 O2 Delivery Mode Room Air Allergies/Adverse Reactions: gentamicin [Gentamicin] Allergy (Mild, Verified 12/28/16 12:56) dizzy Home Medications: Medication Instructions Recorded Bupropion HCl [Wellbutrin Xl] 300 mg PO DAILY 08/16/16 Carvedilol [Coreg] 12.5 mg PO BID 08/16/16 Furosemide [Lasix 40 MG (*)] 40 mg PO DAILY 08/16/16 Herbals/Supplements -Info Only 1 ea PO DAILY 08/16/16 Losartan Potassium [Cozaar 25 mg 25 mg PO DAILY 08/16/16 (*)] Metformin HCl [Metformin 1000 mg] 1,000 mg PO BIDMEAL 08/16/16 Multivitamins [Multivitamin (*)] 1 each PO DAILY 08/16/16 Simvastatin 40 mg PO HS 08/16/16 Amiodarone HCl [Pacerone (*)] 200 mg PO DAILY #30 tab 08/19/16 Warfarin Sodium [Coumadin 3MG (*)] 6 mg PO DAILY18 09/10/16 Albuterol Sulfate [Ventolin Hfa] 18 gm IH 12/28/16 Azithromycin [Zithromax] 250 mg PO DAILY #6 tab 12/28/16 Beclomethasone Qvar 40 [Qvar 40 120 puffs IH 12/28/16 (*)] Benzonatate [Tessalon Pearles] 100 mg PO TID #12 cap 12/28/16 Dexamethasone [Decadron 4 MG (RX)] 8 mg PO ONCE #3 tab 12/28/16 Medical Decision Making - Diagnostics Imaging Results: Imaging Impressions Chest X-Ray 12/28/16 14:27 Impression: 1. Stable chronic atelectasis and fibrotic change at the left base. - Data Points Laboratory Results: Laboratory Results 12/28/16 14:20 12/28/16 14:20 12/28/16 12/28/16 12/28/16 14:20 14:20 14:20 WBC 7.93 10^3/uL 10^3/uL (3.80-9.50) RBC 4.58 10^6/uL 10^6/uL (4.40-6.38) Hgb 14.0 g/dL g/dL (13.7-17.5) Hct 40.8 % % (40.0-51.0) MCV 89.1 fL fL (81.5-99.8) MCH 30.6 pg pg (27.9-34.1) MCHC 34.3 g/dL g/dL (32.4-36.7) RDW 14.6 % % (11.5-15.2) Plt Count 231 10^3/uL 10^3/uL (150-400) MPV 10.3 fL fL (8.7-11.7) Neut % (Auto) 68.2 % % (39.3-74.2) Lymph % (Auto) 13.6 % L % (15.0-45.0) [place] % (Auto) 9.7 % % (4.5-13.0) Eos % (Auto) 6.8 % % (0.6-7.6) Baso % (Auto) 0.8 % % (0.3-1.7) Nucleat RBC Rel Count 0.0 % % (0.0-0.2) Absolute Neuts (auto) 5.41 10^3/uL 10^3/uL (1.70-6.50) Absolute Lymphs (auto) 1.08 10^3/uL 10^3/uL (1.00-3.00) Absolute Monos (auto) 0.77 10^3/uL 10^3/uL (0.30-0.80) Absolute Eos (auto) 0.54 10^3/uL H 10^3/uL (0.03-0.40) Absolute Basos (auto) 0.06 10^3/uL 10^3/uL (0.02-0.10) Absolute Nucleated RBC 0.00 10^3/uL 10^3/uL (0-0.01) Immature Gran % 0.9 % % (0.0-1.1) Immature Gran # 0.07 10^3/uL 10^3/uL (0.00-0.10) PT 27.5 SEC H SEC (12.0-15.0) INR 2.53 H (0.83-1.16) APTT 41.6 SEC H SEC (23.0-38.0) Sodium 140 mEq/L mEq/L (134-144) Potassium 4.6 mEq/L mEq/L (3.5-5.2) Chloride 106 mEq/L mEq/L (97-110) Carbon Dioxide 23 mEq/l mEq/l (22-31) Anion Gap 11 mEq/L mEq/L (8-16) BUN 18 mg/dL mg/dL (7-23) Creatinine 1.3 mg/dL mg/dL (0.7-1.3) Estimated GFR 55 Glucose 97 mg/dL mg/dL (70-100) Calcium 9.3 mg/dL mg/dL (8.5-10.4) Medications Given: Discontinued Medications Albuterol/Ipratropium (Duoneb) 3 ml IH EDNOW ONE Stop: 12/28/16 15:05 Last Admin: 12/28/16 15:21 Dose: 3 ml Azithromycin (Zithromax) 500 mg PO EDNOW ONE PRN Reason: Protocol Stop: 12/28/16 15:06 Last Admin: 12/28/16 15:21 Dose: 500 mg Benzonatate (Tessalon Pearles) 200 mg PO EDNOW ONE Stop: 12/28/16 15:05 Last Admin: 12/28/16 15:21 Dose: 200 mg Dexamethasone (Decadron Injection) 10 mg IVP EDNOW ONE Stop: 12/28/16 15:05 Last Admin: 12/28/16 15: Dose: 10 mg Departure - Departure Disposition: Home, Routine, Self-Care Clinical Impression: Bronchitis Condition: Good Instructions: Acute Bronchitis (ED) Additional Instructions: Read and follow provided instructions. Follow-up with your primary care physician on Friday for re-evaluation without fail. Take medication as prescribed. Albuterol inhaler: 1-2 puffs every 2-4 hours as needed for cough and shortness of breath. 1 time dose of Decadron 8 mg to be taken tomorrow afternoon. Return to the emergency department immediately for worsening cough, difficulty breathing, fever or other serious concerns. Referrals: NONE *PRIMARY CARE P,. [Primary Care Provider] - As per Instructions Prescriptions: Azithromycin [Zithromax] 250 mg PO DAILY #6 tab Benzonatate [Tessalon Pearles] 100 mg PO TID #12 cap Dexamethasone [Decadron 4 MG (RX)] 8 mg PO ONCE #3 tab
[2016-12-28] MEDS ORDERED: DEXAMETHASONE 10 MG/ML VIAL IVP ONE (15:04)
[2016-12-28] MEDS ORDERED: IPRATROPIUM/ALBUTEROL 3 ML DEYVIAL IH ONE (15:04)
[2016-12-28] MEDS ORDERED: BENZONATATE 100 MG CAP PO ONE (15:04)
[2016-12-28] MEDS ORDERED: AZITHROMYCIN 250 MG TAB PO ONE (15:05)
[2016-12-28 15:06] LABS: INR 2.53 (0.83-1.16); PROTIME(PATIENT) 27.5 SEC (12.0-15.0)
[2016-12-28 16:23] VITALS: BP 127/76; PULSE 80; RESP 16; TEMP 98.6; O2SAT 98
== END 2016-12-28 16:23 | disposition home or self-care (01) ==
DX: J20.9 Acute bronchitis, unspecified (principal); I25.2 Old myocardial infarction; Z79.01 Long term (current) use of anticoagulants; Z79.84 Long term (current) use of oral hypoglycemic drugs; Z85.46 Personal history of malignant neoplasm of prostate; Z95.1 Presence of aortocoronary bypass graft
CPT/HCPCS: 71020; 93005; 96374; 99285; J1100

== ENCOUNTER → 2017-04-03 | Outpatient (CLI) | payer OTHER, BC | LOC: BHFA 10:45 | PROVIDERS: ATTEND Internal Medicine Cardiovascular Disease | DX: R06.02 Shortness of breath (principal) ==

== ENCOUNTER → 2017-05-19 | Outpatient (CLI) | payer BC, OTHER | LOC: FIMAGING 12:41 | PROVIDERS: ATTEND Internal Medicine Critical Care Medicine | DX: J98.6 Disorders of diaphragm (principal) ==

== ENCOUNTER 2017-07-22 12:01 | Inpatient (IN) | payer OTHER, BC ==
--- NOTE | 2017-07-22 12:25 | CPEKG ---
Heart Rate: 106 RR Interval: 566 P-R Interval: 134 QRSD Interval: 92 QT Interval: 396 QTC Interval: 526 P Gary: 0 QRS Gary: 59 T Wave Gary: -33 EKG Severity - ABNORMAL ECG - EKG Impression: UNKNOWN RHYTHM, JUNCTIONAL? EKG Impression: PROLONGED QT INTERVAL Electronically Signed By: Marina Snyder 22-Jul-2017 15:19:00
--- NOTE | 2017-07-22 12:31 | EDPHY ---
HPI/HX/ROS/PE/MDM Narrative: CHIEF COMPLAINT: Fatigued, dizzy, difficulty breathing HISTORY OF PRESENT ILLNESS: The patient is an anticoagulated (Coumadin) 72 y/ o male with a complex medical history complaining of fatigue, dizziness, and difficulty breathing, onset Friday night, 2 days ago. He has a history of heart failure, 3 cardiac stents, mechanical aortic and mitral valves (2002), hypertension, and atrial fibrillation. Three months ago, on advise of his highway inspector, Dr. Tejeda, he discontinued his amiodarone. On Friday night, he began feeling tired, dizzy, and having difficulty breathing, consistent with prior episodes of atrial fibrillation. On Friday and this morning, he took a double dose of amiodarone. He denies history of clots. He does not feel that the amiodarone treated his atrial fibrillation. He continues to feel the tachycardia. He denies any other associated symptoms. No fever, chills, chest pain, vomiting, diarrhea, urinary complaints, headache, lightheadedness. REVIEW OF SYSTEMS: Aside from elements discussed in the HPI, a comprehensive 10-point review of systems was reviewed and is negative. PAST MEDICAL HISTORY: 3 cardiac stents, mechanical aortic and mitral valves, hypertension, atrial fibrillation, systolic heart failure, diabetes SOCIAL HISTORY: Lives in [place], , retired VITAL SIGNS: Reviewed by me GENERAL: Overweight gentleman. Well-developed, resting comfortably in no respiratory distress. Pleasant. HEENT: Atraumatic. Eyes: No icterus, no injection. Mouth: moist mucous membranes. No erythema or lesions. Neck: supple with no adenopathy. LUNGS: Wheezy cough. Clear to auscultation bilaterally, no rhonchi or rales. CARDIAC: Two distinct valve clicks. Regular rate and rhythm, no rubs, or gallops. ABDOMEN: Soft, nontender, nondistended, bowel sounds normal. BACK: No CVA tenderness. EXTREMITIES: No trauma. No edema. Range of motion is normal throughout. NEURO: Alert and oriented, grossly nonfocal. SKIN: Warm and dry, no rash. PSYCHIATRIC: Normal mentation, no agitation. ED Course: 12-LEAD EKG: Please see the full report in [facility]. My interpretation: down slope STs inferior laterally and questionable for junctional tachycardia The patient presents with fatigue, shortness of breath, and dizziness since Friday night. Three months ago he discontinued amiodarone. He has taken a double dose of amiodarone the past two days and experienced no improvement. His EKG shows down slope STs inferior laterally and questionable for junctional tachycardia. 1:20 PM- Valsalva maneuver was not successful in diagnosing the underlying rhythm. His heart rate continues to be at 108. Discussed briefly with Dr. Tejeda who was in the emergency department. His suggestion was for a trial of adenosine uncover any potential flutter waves. 2:10 PM- 6mg adenosine administered, no change in the patient's rhythm. IV fluid administered. Chest x-ray: Mild cardiomegaly. 2:40 PM- INR is 12.4. Troponin 0.024. Will admit patient to the hospital for ongoing mild tachycardia, fatigue, shortness of breath, and elevated INR. Dr. Lima will be the admitting physician. MDM: Differential diagnosis for the patient's shortness of breath was considered including but not limited to pulmonary infectious processes, COPD exacerbation, pulmonary edema, congestive heart failure, and cardiac causes. - Data Points Imaging Results: Impression: 1. Moderate cardiomegaly. 2. Stable, chronic interstitial opacities in the bilateral lower lobes. Dictated By: Nuno Giron MD Imaging: I viewed and interpreted images myself Laboratory Results: Laboratory Results 07/22/17 12:20 07/22/17 12:20 07/22/17 07/22/17 07/22/17 12:20 12:20 12:20 WBC 5.37 10^3/uL 10^3/uL (3.80-9.50) RBC 4.37 10^6/uL L 10^6/uL (4.40-6.38) Hgb 12.9 g/dL L g/dL (13.7-17.5) Hct 38.7 % L % (40.0-51.0) MCV 88.6 fL fL (81.5-99.8) MCH 29.5 pg pg (27.9-34.1) MCHC 33.3 g/dL g/dL (32.4-36.7) RDW 14.7 % % (11.5-15.2) Plt Count 159 10^3/uL 10^3/uL (150-400) MPV 10.7 fL fL (8.7-11.7) Neut % (Auto) 79.5 % H % (39.3-74.2) Lymph % (Auto) 6.7 % L % (15.0-45.0) [place] % (Auto) 6.3 % % (4.5-13.0) Eos % (Auto) 6.5 % % (0.6-7.6) Baso % (Auto) 0.4 % % (0.3-1.7) Nucleat RBC Rel Count 0.0 % % (0.0-0.2) Absolute Neuts (auto) 4.27 10^3/uL 10^3/uL (1.70-6.50) Absolute Lymphs (auto) 0.36 10^3/uL L 10^3/uL (1.00-3.00) Absolute Monos (auto) 0.34 10^3/uL 10^3/uL (0.30-0.80) Absolute Eos (auto) 0.35 10^3/uL 10^3/uL (0.03-0.40) Absolute Basos (auto) 0.02 10^3/uL 10^3/uL (0.02-0.10) Absolute Nucleated RBC 0.00 10^3/uL 10^3/uL (0-0.01) Immature Gran % 0.6 % % (0.0-1.1) Immature Gran # 0.03 10^3/uL 10^3/uL (0.00-0.10) RBC/WBC/PLT Morphology TNP Platelet Estimate TNP PT 94.8 SEC H SEC (12.0-15.0) INR 12.40 H* (0.83-1.16) APTT 72.2 SEC H SEC (23.0-38.0) Sodium 140 mEq/L mEq/L (135-145) Potassium 4.9 mEq/L mEq/L (3.3-5.0) Chloride 107 mEq/L mEq/L (97-110) Carbon Dioxide 23 mEq/l mEq/l (22-31) Anion Gap 10 mEq/L mEq/L (8-16) BUN 16 mg/dL mg/dL (7-23) Creatinine 1.2 mg/dL mg/dL (0.7-1.3) Estimated GFR 60 Glucose 134 mg/dL H mg/dL (70-100) Calcium 8.1 mg/dL L mg/dL (8.5-10.4) Troponin I 0.024 ng/mL ng/mL (0.000-0.034) Medications Given: Discontinued Medications Adenosine (Adenosine) 6 mg IVP EDNOW ONE Stop: 07/22/17 13:57 Last Admin: 07/22/17 14:11 Dose: 6 mg Sodium Chloride (Ns) 500 mls @ 1,000 mls/hr IV EDNOW ONE PRN Reason: Protocol Stop: 07/22/17 13:14 Last Admin: 07/22/17 13:02 Dose: 500 mls Phytonadione (Vitamin K) 5 mg PO ONCE ONE Stop: 07/22/17 15:30 Last Admin: 07/22/17 16:25 Dose: 5 mg General Time Seen by Provider: 07/22/17 12:25 Initial Vital Signs: Initial Vital Signs Temperature (C) 36.5 C 07/22/17 12:03 Heart Rate 100 07/22/17 12:03 Respiratory Rate 16 07/22/17 12:03 Blood Pressure 129/83 H 07/22/17 12:03 O2 Sat (%) 94 07/22/17 12:03 O2 Delivery Mode Nasal Cannula O2 (L/minute) 3 Allergies/Adverse Reactions: gentamicin [Gentamicin] Allergy (Mild, Verified 07/22/17 12:06) dizzy Home Medications: Medication Instructions Recorded Carvedilol [Coreg] 12.5 mg PO BID 08/16/16 Losartan Potassium [Cozaar 25 mg 25 mg PO DAILY 08/16/16 (*)] Metformin HCl [Metformin 1000 mg] 1,000 mg PO BIDMEAL 08/16/16 Multivitamins [Multivitamin (*)] 1 each PO HS 08/16/16 Simvastatin 40 mg PO HS 08/16/16 Aspirin EC [Aspirin EC 325 mg (*)] 325 mg PO HS 07/22/17 Bupropion HCl [Wellbutrin Xl] 300 mg PO DAILY 07/22/17 Warfarin Sodium [Coumadin 1MG (*)] 2 mg PO DAILY16 07/22/17 Warfarin Sodium [Coumadin 5MG (*)] 5 mg PO DAILY16 07/22/17 Departure - Departure Disposition: [facility] Clinical Impression: Tachycardia Fatigue Qualifiers: Fatigue type: unspecified Qualified Code(s): R53.83 - Other fatigue Condition: Fair Report Scribed for: Marina Snyder Report Scribed by: Fozia Naylor Date of Report: 07/22/17 Time of Report: 12:46 Physician Review and Approval Statement: Portions of this note were transcribed by a medical laboratory technician. I personally performed a history, physical exam, medical decision making, and confirmed accuracy of information the transcribed note.
[2017-07-22] MEDS ORDERED: NS 500 ML IV ONE (12:45)
[2017-07-22 13:09] LABS: PLATELET COUNT 159 10^3/uL (150-400)
[2017-07-22] MEDS ORDERED: ADENOSINE 6 MG/2 ML VIAL IVP ONE (13:56)
[2017-07-22 14:41] LABS: INR 12.4 (0.83-1.16); PROTIME(PATIENT) 94.8 SEC (12.0-15.0)
[2017-07-22] MEDS ORDERED: PHYTONADIONE 2.5 MG/2.5 ML ORAL UDL PO ONE (15:29)
--- NOTE | 2017-07-22 15:46 | GHP ---
[f rep st] HISTORY AND PHYSICAL DATE OF ADMISSION: 07/22/2017 CHIEF COMPLAINT: Shortness of breath. HISTORY OF PRESENT ILLNESS: This is a 72-year-old male with history of atrial fibrillation, as well as mechanical aortic valve and mitral valve replacements who presented to the emergency department to day with worsening fatigue and shortness of breath. Starting Friday night, he noticed that his hea rt rate was in the 120s. He subsequently doubled his amiodarone from 200 mg to 400 mg daily. He has been compliant with all of his medications, but he has not been very compliant with having a low-sod ium diet. He states that he gets easily winded with light exertion. He has 2 pillow orthopnea. He has had carlin e mild swelling in his legs, but has not noticed any weight gain. He denies any chest pain. He prisca es any fevers or chills. PAST MEDICAL HISTORY: 1. Mechanical aortic valve replacement and mitral valve replacement. 2. Chronic kidney disease. 3. Coronary artery disease, status post CABG. 4. Prostate cancer. 5. Congestive heart failure with an ejection fraction of 50%-55% by echo on 09/12/2016. 6. 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 7. Obstructive sleep apnea, on CPAP. 8. Gentamicin toxicity causing chronic dizziness. 9. Hypertension. 10. Traumatic brain injury. 11. Chronic supplemental oxygen dependence. HOME MEDICATIONS: Reviewed. Refer to [employer] for details. ALLERGIES HISTORY: History of gentamicin toxicity. SOCIAL HISTORY: Lives in [place] with his . He denies any alcohol, tobacco, or illicit drug u se. He is a former smoker. FAMILY HISTORY: Significant for heart and kidney disease. REVIEW OF SYSTEMS: Comprehensive 10-point review of systems was done and is negative, except for as mentioned in the HPI. PHYSICAL EXAMINATION: VITAL SIGNS: Blood pressure 118/77, pulse of 105, respiratory rate 15, O2 sat uration 98% on 3 L, temperature afebrile. GENERAL: In no acute distress. HEAD: Normocephalic, atr aumatic. EYES: PERRLA. Sclerae anicteric. MOUTH: Moist mucous membranes. NECK: Supple. No lym phadenopathy. CARDIOVASCULAR: S1, S2 with mechanical heart sounds. Irregularly irregular. There i s no JVD. There is trace lower extremity edema. PULMONARY: Diminished breath sounds at bilateral b ases. No wheezes or rhonchi. ABDOMEN: Soft, nontender, nondistended. No guarding or rebound tende rness. Normoactive bowel sounds. EXTREMITIES: No clubbing or cyanosis. NEURO: Cranial nerves 2-1 2 grossly intact. No focal, motor, or sensory deficits. SKIN: Clear. No rashes. DIAGNOSTIC DATA: WBC is 5.3, hemoglobin 12.9, hematocrit 38.7, platelets 159. INR 12.4. Sodium 140 , potassium 4.9, chloride 107, BUN 16, creatinine 1.2, glucose 134, calcium 8.1. EKG, which I visualized and personally interpreted, shows a junctional rhythm rate 106 beats per lizbet te, with a prolonged QT interval. ASSESSMENT/PLAN: This is a 72-year-old male with history of heart failure presenting with: 1. Fatigue, dyspnea on exertion, and orthopnea, significant for acute on chronic likely diastolic he art failure. See below. 2. History of atrial fibrillation, now in a junctional rhythm: In the emergency department, patient was given adenosine. Appears to be in a junctional rhythm now. Will consult Cardiology. We will a lso check magnesium level and replace as indicated. We will check a TSH as well. Echocardiogram ford l be ordered. 3. Supratherapeutic INR. We will hold Coumadin and give oral vitamin K. Will repeat INR in the mor radha. The patient does not appear to be actively bleeding. 4. Normocytic anemia, mild. Monitor for signs symptoms of bleeding. A chest x-ray will be ordered to evaluate his pulmonary status in the setting of heart failure. We w ill treat with diuretics as indicated. The patient requests to be full code status. /[id number]/MODL
[2017-07-22] MEDS: metFORMIN HCL 500 MG TAB PO SCH (16:45)
[2017-07-22] MEDS: CARVEDILOL 6.25 MG TAB PO SCH (16:45)
--- NOTE | 2017-07-22 17:08 | PDCARPN ---
Cardiology Progress Note Chief Complaint: Fatigue and SOB Assessment/Plan: Assessment: Fatigue and SOB likely symptoms of his rapid HR. His INR is elevated at 12.5 with Warfarin on HOLD. Will check lab in AM. CAD history of CABG 2002 and AVR/MVR. Last cath was in [address] Tejeda showing adequate coronary circulation. BUCKY with oxygen at night. Hypertension managed on Losartan and BB. Diabetes on Metformin. Paroxysmal A Fib, and Atrial Tachycardia on Warfarin for anticoagulation, currently on HOLD due to INR elevation. Telemetry shows Tachycardia with rate 104. He was previously on Amiodarone and it was stopped prior to his [place] 07/01/2017. He did take Amiodarone 200 mg, and increased it to 400 mg over the weekend Reviewed EKG with Dr Rand to review a T-W appearing inversion. His Troponin was negative on admit. Will get ECHO for more information. SOB has been evaluated further by Dr Dietz with Pulmonology. Possible ascites--Abdomen is firm and full. BNP was elevated. Will consider diuretic once Echo results available. Plan: No medication changes at this time. Further recommendations after Echo. 07/22/17 16:54 07/22/17 17:22 Reviewed/Discussed With: multidisciplinary team (Lilibeth RANDOLPH) Objective: Vital Signs (8 Hrs) Temp Pulse Resp BP Pulse Ox 07/22/17 16:45 104 H 122/82 H 07/22/17 15:46 36.5 C 105 H 18 110/78 97 Intake/Output (24 Hrs) 07/21/17 07/22/17 07/23/17 05:59 05:59 05:59 Intake Total 750 Balance 750 Intake: IV Infused (ml) 750 Other: Weight 127.006 kg Number of Voids 1 Result Diagrams: 07/22/17 12:20 07/22/17 12:20 Echocardiogram: Ordered - Physical Exam Constitutional: no apparent distress, obese Cardiovascular: regular rate and rhythm, no murmurs, no rubs, no gallops, other (Valve click-) Peripheral Pulses: 2+: carotid (R), carotid (L), dorsalis-pedis (R), dorsalis- pedis (L) Respiratory: no crackles, no wheezes, reduced air movement Gastrointestinal: no tenderness, ascites, other (Abd firm,full) Skin: warm, no edema Neurologic: AAOx3 Psychiatric: cooperative, interactive, anxious ICD10 Worksheet Patient Problems: Problems Problem Status Onset Acute on chronic systolic heart failure, NYHA class 3 Acute Atrial tachycardia Acute Pulmonary edema Acute Dyspnea Acute Fatigue Acute Tachycardia Acute
--- NOTE | 2017-07-22 17:10 | ECHO ---
[email or web address] [address] Main: [phone] Fax: Transthoracic Echocardiogram Name: NAJMA SIMMONS MR#: [id number] Study Date: 07/22/2017 Study Time: 04:03 PM Date of : 1945 Age: 72 year(s) Height: 188 cm (74 in.) Weight: 127.01 kg (280 lb.) BSA: 2.51 m2 Gender: Male Examination: Echo Indication: HF with h/o AVR/MVR Image Quality: Technically Difficult Contrast: Requested by: Niels Lima BP: 121 mmHg/106 mmHg Heart Rate: Rhythm: Indication: HF with h/o AVR/MVR Procedure Staff Computer Hardware Designer: Jane Persaud [facility] Reading Physician: Jen Cruz MD Requesting Provider: Conclusions: Normal size left ventricle. Mildly reduced systolic LV function. The ejection fraction is estimated to be 45-50 %. There is paradoxic septal motion suggestive of bundle branch block, paced cardiac rhythm, or prior cardiac surgery. Normal size right ventricle. The left atrium is severely dilated. There is no mitral valve regurgitation. A mechanical mitral valve prosthesis is in place.. Prosthetic mitral valve gradients are within normal limits. The aortic valve is a mechanical prosthesis.. No prosthesis stenosis. No prosthesis regurgitation. Mild to moderate tricuspid valve regurgitation. Right ventricular systolic pressure measures 32mmHg. Mildly dilated ascending aorta measuring 3.8 cm. Compared with 04/03/2017 LV systolic function may be slightly decreased. Ascending aorta previously measured 3.7 cm. Measurements: Chambers Valvular Assessment AV/MV Valvular Assessment TV/PV Normal Normal Normal Name Value Range Name Value Range Name Value Range Ao Jer[place] (MM): 2.9 cm (2.2 cm-3.7 AV Vmax: 1.63 m/s (1 m/s-1.7 TR Vmax: 2.58 mm/s ( - ) cm) m/s) TR PGmax: 27 mmHg ( - ) IVSd (2D): 1.0 cm (0.6 cm-1.1 AV maxP mmHg ( - ) syst. PAP: 32 mmHg ( - ) cm) AV meanP mmHg ( - ) LVDd (2D): 5.0 cm (4.2 cm-5.9 LVOT Vmax: 0.74 m/s (0.7 m/s-1.1 cm) m/s) MV meanP mmHg ( - ) Patient: NAJMA SIMMONS Study Date: 07/22/2017 Page 1 of 2 04:03 PM LVDs (2D): 4.2 cm (2.1 cm-4 MV PHT: 0.040 s ( - ) cm) MVA (PHT): 5.5 s ( - ) LVPWd (2D): 0.8 cm (0.6 cm-1 cm) LVEF (BP): 45 % (>=55 %) EF Range: 45-50 % RVDd(2D): 2.8 cm (1.9 cm-3.8 cmmm) Continued Measurements: Chambers Valvular Assessment AV/MV Valvular Assessment TV/PV Name Value Name Value Name Value LADs Lon.9 cm MV VTI: 20.00 cm CVP (est.): 5 mmHg LA Area: 35.8 cm2 LA Volume: 141 ml LA Volume Index: 56.2 ml/m2 Additional Vessels Name Value Ao Ascendin.8 cm Findings: Left Ventricle: Normal size left ventricle. No LV hypertrophy. Mildly reduced systolic LV function. The ejection fraction is estimated to be 45-50 %. There is paradoxic septal motion suggestive of bundle branch block, paced cardiac rhythm, or prior cardiac surgery. Unable to assess diastolic dysfunction. Right Ventricle: Normal size right ventricle. Low to normal RV function. Left Atrium: The left atrium is severely dilated. Right Atrium: The right atrium is mildly dilated. Mitral Valve: There is no mitral valve regurgitation. A mechanical mitral valve prosthesis is in place.. Prosthetic mitral valve gradients are within normal limits. Aortic Valve: The aortic valve is a mechanical prosthesis.. No prosthesis stenosis. No prosthesis regurgitation. Tricuspid Valve: The tricuspid valve is normal in appearance and function. Mild to moderate tricuspid valve regurgitation. The pulmonary artery pressure is normal. Right ventricular systolic pressure measures 32mmHg. Pulmonic Valve: The pulmonic valve is normal in appearance and function. Trivial pulmonic valve regurgitation. Aorta: The aorta is normal. Normal size aortic root measuring 2.9 cm. Mildly dilated ascending aorta measuring 3.8 cm. Pericardium: Trivial pericardial effusion. There is pericardial fat. (No Signature Object) Patient: NAJMA SIMMONS Study Date: 07/22/2017 Page 2 of 2 04:03 PM [id number]
--- NOTE | 2017-07-22 17:47 | PDMN ---
Medical Necessity Medical necessity: Pt meets INPT criteria per MD and MCG M-190 Heart Failure ( acute on chronic likely diastolic heart failure, hx afib now in a junctional rhythm, tachycardia, elevated BNP. Hx AVR, MVR, CKD, CAD, [place], hypertension).
[2017-07-22] MEDS ORDERED: NON-FORMULARY NEW DRUG (Metformin Hcl [Metformin 1000 Mg] 1,000 MG) PO SCH (18:00)
[2017-07-22] MEDS ORDERED: NON-FORMULARY NEW DRUG (Carvedilol [Coreg] 12.5 MG) PO SCH (21:00)
[2017-07-22] MEDS ORDERED: NON-FORMULARY NEW DRUG (Simvastatin [Simvastatin] 40 MG) PO SCH (21:00)
[2017-07-22] MEDS: MULTIVITAMINS 1 EACH TAB PO SCH (22:24)
[2017-07-22] MEDS: ATORVASTATIN CALCIUM 20 MG TAB PO SCH (22:25)
[2017-07-22] MEDS: ASPIRIN EC 325 MG TAB PO SCH (22:25)
[2017-07-23] MEDS: ACETAMINOPHEN 325 MG TAB PO PRN ×2 (01:07→08:43)
--- NOTE | 2017-07-23 02:49 | HOSPPROG ---
Hospitalist Progress Note Assessment/Plan: Hospitalist night float note Notified earlier in the shift by RN regarding development of fever and tachycardia. Patient had been complaining symptomatic Abril of some dysuria. He had earlier some valerie hematuria. No flank pain. Sepsis evaluation was initiated with cultures and lactate which was normal. Patient with some difficulties voiding but subsequently successful. UA was significant for only 3-5 WBCs and trace bacteria. Chest x-ray obtained earlier was reported to be relatively unchanged from previous imaging studies. Patient admitted with acute on chronic diastolic CHF decompensation and volume overloaded. IV fluid bolus was not it initiated in this case. Patient's blood pressures were adequate. Lactate was normal. Patient started on Rocephin for symptomatic UTI. Cultures will be pending. Objective: Vital Signs Temp Pulse Resp BP Pulse Ox 38.9 C H 109 H 17 106/64 97 07/22/17 23:14 07/22/17 23:14 07/22/17 23:14 07/22/17 23:14 07/22/17 23:14 07/21/17 07/22/17 07/23/17 05:59 05:59 05:59 Intake Total 750 Output Total 100 Balance 650 PT 94.8 SEC (12.0-15.0) H 07/22/17 12:20 INR 12.40 (0.83-1.16) H* 07/22/17 12:20 ICD10 Worksheet Patient Problems: Problems Problem Status Onset Fatigue Acute Tachycardia Acute Acute on chronic systolic heart failure, NYHA class 3 Acute Atrial tachycardia Acute Dyspnea Acute Pulmonary edema Acute
[2017-07-23 06:05] LABS: INR 5.33 (0.83-1.16); PROTIME(PATIENT) 48.1 SEC (12.0-15.0)
[2017-07-23] MEDS: buPROPion XL 150 MG TAB PO SCH (08:42)
[2017-07-23] MEDS: metFORMIN HCL 500 MG TAB PO SCH ×2 (08:42→18:24)
[2017-07-23] MEDS: LOSARTAN POTASSIUM 25 MG TAB PO SCH (08:42)
[2017-07-23] MEDS: CARVEDILOL 6.25 MG TAB PO SCH ×2 (08:43→18:23)
[2017-07-23] MEDS ORDERED: NON-FORMULARY NEW DRUG (Bupropion Hcl [Wellbutrin Xl] 300 MG) PO SCH (09:00)
--- NOTE | 2017-07-23 13:19 | HOSPPROG ---
Hospitalist Progress Note Assessment/Plan: DIAGNOSES: # acute on chronic hypoxemic respiratory failure, does use oxygen at home # acute tachycardia, regular narrow complex, uncertain mechanism consider SVT verses atrial flutter * Remains rapid in mid 120s * I reviewed this with Dr. Rand today, the T-waves are peaked and point he is would be expected with flutter wave although for his rate I would expect there to be probably 3-1 conduction and I only see 1 T-wave per QRS at this time ; he did not convert to sinus with adenosine given in the ER but we are not able to find any EKG tracings from that procedure; proper diagnosis important given the differences in management # acute febrile illness temperature 39 degrees * Etiology is really quite uncertain and on review of symptoms I can find no specific localizing concerns; has some density at the left lower lobe but is known to have left hemidiaphragm paralysis and this could be pneumonia versus atelectasis there * Doubt UTI as he has no symptoms in the hematuria is probably due to his excessive anticoagulation, white blood cell count minimal * Cultures drawn and are pending, empiric antibiotics started # excessive anticoagulation with Coumadin for his two mechanical valves and history of AFib * Improved so far today but still greater than 5 after 1 dose of vitamin K, will follow closely at this time * No current evidence of significant bleeding # elevated TSH suggesting possibility of hypothyroidism * Will check repeat TSH as well as a free T3 and T4 * Has symptoms that certainly could be impacted by hypothyroidism but hard to tell whether he has actual symptomatic hypothyroidism at present due to multiple other acute issues # history of CAD and bypass surgery, nothing currently to suggest ischemia # chronic kidney disease at her near baseline now # obstructive sleep apnea # history of traumatic brain injury Patient seen by me today on hospitals rounds as well as multidisciplinary rounds I have reviewed the case in detail with Dr. Robert Rand today PLANS: * await cultures, continue empiric antibiotic therapy, will add some azithromycin at this time for coverage of possible pneumonia * Will give another adenosine bolus well on a 12 lead library monitor today in my presence to see if he can see underlying mechanism of tachycardia * Follow INR closely off Coumadin until it is back into range for management of his heart valves * Follow closely for any bleeding in the meantime * Would prefer that we try and have him on CPAP at night here * Mechanical DVT prophylaxis, already anticoagulated * Recheck TSH and check free T3 and free T4 SUBJECTIVE: Very weak and tired No pain Poor appetite Some dyspnea remains OBJECTIVE Vitals reviewed: Heart rate 115-130 mostly around 120, regular, temperature 39 degrees last night currently afebrile Be PEs and respirations okay but 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, 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: Rapid narrow complex regular tachycardia, the T- waves have the shape of an a flutter wave but at a rate of 112 when I was watching he had only 1 T-wave per QRS, not what I expect in terms of the conduction if this were to be flutter so I am concerned this may be some type of SVT; also there is a abnormality beginning of the QRS that could potentially be consistent with a pre-excitation abnormality Exam: alert oriented skin warm dry color ok resps not labored lungs clear BSs heart regular abd soft nondistended nontender, bowel sounds present limbs warm, no edema iv site ok Laboratory data: This morning his INR is down to 5 Objective: Vital Signs Temp Pulse Resp BP Pulse Ox 36.4 C 115 H 15 95/71 L 98 07/23/17 12:00 07/23/17 12:00 07/23/17 12:00 07/23/17 12:00 07/23/17 12:00 07/22/17 07/23/17 07/24/17 06:59 06:59 06:59 Intake Total 950 Output Total 350 Balance 600 PT 48.1 SEC (12.0-15.0) H 07/23/17 04:05 INR 5.33 (0.83-1.16) H* 07/23/17 04:05 - Time Spent With Patient Time Spent with Patient: greater than 35 minutes Time Spent with Patient: Greater than 35 minutes spent on this patients care, greater than 50% of time spent counseling, educating, and coordinating care regarding the above mentioned plan. ICD10 Worksheet Patient Problems: Problems Problem Status Onset Fatigue Acute Tachycardia Acute Acute on chronic systolic heart failure, NYHA class 3 Acute Atrial tachycardia Acute Dyspnea Acute Pulmonary edema Acute
[2017-07-23] MEDS ORDERED: FUROSEMIDE 40 MG/4 ML VIAL IVP ONE (14:37)
--- NOTE | 2017-07-23 14:43 | PDCARPN ---
Cardiology Progress Note Assessment/Plan: Assessment: Fatigue and SOB likely symptoms of his rapid HR. His INR is elevated at 12.5 with Warfarin on HOLD. Will check lab in AM. CAD history of CABG 2002 and AVR/MVR. Last cath was in [address] Tejeda showing adequate coronary circulation. BUCKY with oxygen at night. Hypertension managed on Losartan and BB. Diabetes on Metformin. Paroxysmal A Fib, and Atrial Tachycardia on Warfarin for anticoagulation, currently on HOLD due to INR elevation. Telemetry shows Tachycardia with rate 104. He was previously on Amiodarone and it was stopped prior to his [place] 07/01/2017. He did take Amiodarone 200 mg, and increased it to 400 mg over the weekend Reviewed EKG with Dr Rand to review a T-W appearing inversion. His Troponin was negative on admit. Will get ECHO for more information. SOB has been evaluated further by Dr Dietz with Pulmonology. Possible ascites--Abdomen is firm and full. BNP was elevated. Will consider diuretic once Echo results available. Plan: No medication changes at this time. Further recommendations after Echo. 07/22/17 16:54 07/23/17 14:59 Heart rhythm is tachycardia with rate 110. Possible Atrial Flutter. Adenosine test done revealing no atrial fib today. Dr Diane will see in AM. Robert Rand has reviewed case and EKG's. BNP 3910. Will give IV Lasix this afternoon. He remains Fatigued with SOB. Is followed as aoutpatient by pulmonary. INR is drifting down. Will watch closely and resume Coumadin when appropriate. ECHO showed EF 45 to 50%. Left Atrial dilation. Mechanical Mitral Valve. PLAN: Dr Diane to see in AM. Reviewed/Discussed With: multidisciplinary team Objective: Vital Signs (8 Hrs) Temp Pulse Resp BP Pulse Ox 07/23/17 12:00 36.4 C 115 H 15 95/71 L 98 07/23/17 07:21 36.5 C 106 H 12 110/68 98 Intake/Output (24 Hrs) 07/22/17 07/23/17 07/24/17 05:59 05:59 05:59 Intake Total 950 Output Total 350 Balance 600 Intake: Oral (ml) 150 IV Infused (ml) 800 cefTRIAXone 1 GM/DEXTROSE 50 50 ml @ 100 mls/hr IV DAILY [facility] Rx#:[id number] Output: Urine (ml) 350 Urinal 350 Other: Weight 126.1 kg Intake Quantity Yes Sufficient Number of Voids 1 Bedside Commode 1 Toilet 1 1 Urinal 1 Result Diagrams: 07/22/17 12:20 07/22/17 12:20 - Physical Exam Constitutional: no apparent distress, obese Cardiovascular: regular rate and rhythm, no rubs, no gallops Respiratory: no crackles, no wheezes, reduced air movement Gastrointestinal: no tenderness, ascites Skin: warm, no edema Neurologic: AAOx3 Psychiatric: cooperative, interactive ICD10 Worksheet Patient Problems: Problems Problem Status Onset Fatigue Acute Tachycardia Acute Acute on chronic systolic heart failure, NYHA class 3 Acute Atrial tachycardia Acute Dyspnea Acute Pulmonary edema Acute
--- NOTE | 2017-07-23 16:10 | ASMTCMCOM ---
CM Note CM Note Notes: Spoke w/pt, PT/OT recommending homecare. Notified Leticia at [facility], they will be able to go to [place] where pt lives. DC date unclear. DC Plan: Homecare/[facility] Date Signed: 07/23/2017 04:10 PM Electronically Signed By:Debbie Cain RN
[2017-07-23] MEDS: MULTIVITAMINS 1 EACH TAB PO SCH (21:45)
[2017-07-23] MEDS: ASPIRIN EC 325 MG TAB PO SCH (21:45)
[2017-07-23] MEDS: ATORVASTATIN CALCIUM 20 MG TAB PO SCH (21:46)
[2017-07-24 05:14] LABS: INR 2.75 (0.83-1.16)
[2017-07-24] MEDS ORDERED: FUROSEMIDE 40 MG/4 ML VIAL IVP ONE (09:38)
[2017-07-24] MEDS ORDERED: PROTOCOL POTASSIUM 1 DOSE MISC PRN (09:43)
[2017-07-24] MEDS ORDERED: PROTOCOL MAGNESIUM 1 DOSE IV PRN (09:43)
[2017-07-24] MEDS ORDERED: FUROSEMIDE 20 MG/2 ML VIAL IVP ONE (09:45)
[2017-07-24] MEDS ORDERED: ATROPINE SULFATE 1 MG/10 ML SYR IVP ONE (09:46)
[2017-07-24] MEDS ORDERED: NS 1,000 ML IV ONE (09:46)
[2017-07-24] MEDS: buPROPion XL 150 MG TAB PO SCH (09:58)
[2017-07-24] MEDS: CARVEDILOL 6.25 MG TAB PO SCH ×2 (09:58→18:18)
[2017-07-24] MEDS: metFORMIN HCL 500 MG TAB PO SCH ×2 (09:59→18:16)
[2017-07-24] MEDS: LOSARTAN POTASSIUM 25 MG TAB PO SCH (09:59)
--- NOTE | 2017-07-24 10:03 | PDCARPN ---
Cardiology Progress Note Assessment/Plan: Assessment: Fatigue and SOB likely symptoms of his rapid HR. His INR is elevated at 12.5 with Warfarin on HOLD. Will check lab in AM. CAD history of CABG 2002 and AVR/MVR. Last cath [place] [address] Tejeda showing adequate coronary circulation. BUCKY with oxygen at night. Hypertension managed on Losartan and BB. Diabetes on Metformin. Paroxysmal A Fib, and Atrial Tachycardia on Warfarin for anticoagulation, currently on HOLD due to INR elevation. Telemetry shows Tachycardia with rate 104. He was previously on Amiodarone and it was stopped prior to his [place] 07/01/2017. He did take Amiodarone 200 mg, and increased it to 400 mg over the weekend Reviewed EKG with Dr Rand to review a T-W appearing inversion. His Troponin was negative on admit. Will get ECHO for more information. SOB has been evaluated further by Dr Dietz with Pulmonology. Possible ascites--Abdomen is firm and full. BNP was elevated. Will consider diuretic once Echo results available. Plan: No medication changes at this time. Further recommendations after Echo. 07/22/17 16:54 07/23/17 14:59 Heart rhythm is tachycardia with rate 110. Possible Atrial Flutter. Adenosine test done revealing no atrial fib today. Dr Diane will see in AM. Robert Rand has reviewed case and EKG's. BNP 3910. Will give IV Lasix this afternoon. He remains Fatigued with SOB. Is followed as aoutpatient by pulmonary. INR is drifting down. Will watch closely and resume Coumadin when appropriate. ECHO showed EF 45 to 50%. Left Atrial dilation. Mechanical Mitral Valve. PLAN: Dr Diane to see in AM. 07/24/17 09:59 Dr Diane reviewed Rhythm---Atrial Flutter. Recommends DCCV. Dr Rand will do later today as he has eaten. INR now down to 2.75 (from 12.5 ) on admit. He feels better after IV Lasix yesterday. Will give Lasix 20 mg IVP this morning, and start daily Oral Lasix tomorrow. Subjective: fatigued, feel better after Lasix yesterday. Agreeable to having DCCV Reviewed/Discussed With: hospitalist, multidisciplinary team, other (Dr Diane, And Dr Rand) Objective: Vital Signs (8 Hrs) Temp Pulse Resp BP Pulse Ox 07/24/17 08:39 36.9 C 117 H 18 105/74 96 07/24/17 04:00 36.6 C 113 H 20 99/62 L 98 Intake/Output (24 Hrs) 07/23/17 07/24/17 07/25/17 05:59 05:59 05:59 Intake Total 950 1280 Output Total 350 450 Balance 600 830 Intake: Oral (ml) 150 1280 IV Infused (ml) 800 cefTRIAXone 1 GM/DEXTROSE 50 50 ml @ 100 mls/hr IV DAILY [facility] Rx#:[id number] Output: Urine (ml) 350 450 Toilet 450 Urinal 350 Other: Weight 126.1 kg 124.3 kg Intake Quantity Yes Sufficient Number of Voids 1 Bedside Commode 1 2 Toilet 1 1 Urinal 1 Result Diagrams: 07/22/17 12:20 07/22/17 12:20 - Physical Exam Constitutional: no apparent distress, obese Cardiovascular: regular rate and rhythm, no murmurs, no rubs, no gallops Respiratory: no crackles, no wheezes, reduced air movement Skin: warm, other (Abdomen full) Neurologic: AAOx3 Psychiatric: cooperative, interactive ICD10 Worksheet Patient Problems: Problems Problem Status Onset Acute on chronic systolic heart failure, NYHA class 3 Acute Atrial tachycardia Acute Pulmonary edema Acute Dyspnea Acute Fatigue Acute Tachycardia Acute
[2017-07-24 10:07] LABS: PLATELET COUNT 163 10^3/uL (150-400)
--- NOTE | 2017-07-24 11:03 | CPEKG ---
Heart Rate: 119 RR Interval: 504 P-R Interval: 77 QRSD Interval: 96 QT Interval: 360 QTC Interval: 507 P [place]: 0 QRS [place]: 65 T Wave [place]: -41 EKG Severity - ABNORMAL ECG - EKG Impression: ATRIAL FLUTTER WITH 2:1 CONDUCTION EKG Impression: NONSPECIFIC REPOL ABNORMALITY, DIFFUSE LEADS Electronically Signed By: Ronni Diane 24-Jul-2017 11:38:24
[2017-07-24] MEDS ORDERED: ATROPINE SULFATE 1 MG/10 ML SYR ONE (15:44)
--- NOTE | 2017-07-24 15:53 | PDHPUP ---
History & Physical Update H&P update statement: This history and physical update is based on an assessment of the patient which was completed after admission or registration (within 24 hours), but prior to the surgery/procedure. H&P update: H&P reviewed & patient examined, no change in patient's condition since H&P completed
[2017-07-24] MEDS ORDERED: WARFARIN SODIUM 3 MG TAB PO ONE (16:00)
[2017-07-24] MEDS ORDERED: LIDOCAINE 1% 5 ML SDV ONE (16:04)
[2017-07-24] MEDS ORDERED: PROPOFOL 200 MG/20 ML VIAL ONE (16:04)
--- NOTE | 2017-07-24 16:04 | PDANEPAE ---
ANE History of Present Illness A flutter ANE Past Medical History - Cardiovascular History Hx Hypertension: Yes Hx Arrhythmias: Yes Hx Chest Pain: No Hx Coronary Artery / Peripheral Vascular Disease: Yes Hx CHF / Valvular Disease: Yes Hx Palpitations: Yes - Pulmonary History Hx COPD: Yes Hx Asthma/Reactive Airway Disease: No Hx Recent Upper Respiratory Infection: No Hx Oxygen in Use at Home: Yes O2 in Use at Home (L/minute): 4 Hx Sleep Apnea: Yes Sleep Apnea Screening Result - Last Documented: Positive - Endocrine History Hx Diabetes: Yes - Liver History Hx Hepatic Disorders: No - Neurological & Psychiatric Hx Hx Neurological and Psychiatric Disorders: No - Chronic Pain History Chronic Pain: No ANE Review of Systems Review of systems is: negative Review of Systems: - Exercise capacity Exercise capacity: <4 METS ANE Patient History - Allergies Allergies/Adverse Reactions: gentamicin [Gentamicin] Allergy (Mild, Verified 07/22/17 12:06) dizzy - Home Medications Home Medications: Carvedilol [Coreg] 12.5 mg PO BID 08/16/16 [Last Taken 07/22/17] Losartan Potassium [Cozaar 25 mg (*)] 25 mg PO DAILY 08/16/16 [Last Taken ] Metformin HCl [Metformin 1000 mg] 1,000 mg PO BIDMEAL 08/16/16 [Last Taken 07/22] Multivitamins [Multivitamin (*)] 1 each PO HS 08/16/16 [Last Taken 07/21/17] Simvastatin 40 mg PO HS 08/16/16 [Last Taken 07/21/17] Aspirin EC [Aspirin EC 325 mg (*)] 325 mg PO HS 07/22/17 [Last Taken 07/21/17] Bupropion HCl [Wellbutrin Xl] 300 mg PO DAILY 07/22/17 [Last Taken 07/22/17] Warfarin Sodium [Coumadin 1MG (*)] 2 mg PO DAILY16 07/22/17 [Last Taken 07/21/17 ] Warfarin Sodium [Coumadin 5MG (*)] 5 mg PO DAILY16 07/22/17 [Last Taken 07/21/17 ] - NPO status NPO Status: no food or drink >8 hours NPO Since - Liquids (Date): 07/24/17 NPO Since - Liquids (Time): 08:30 NPO Since - Solids (Date): 07/24/17 NPO Since - Solids (Time): 08:30 - Anes Hx Anes Hx: no prior problems - Smoking Hx Smoking Status: Former smoker - Alcohol Use Alcohol Use: None - Family Anes Hx Family Anes Hx: none ANE Labs/Vital Signs - Labs Result Diagrams: 07/24/17 09:58 07/24/17 09:58 - Vital Signs Blood Pressure: 111/80 Heart Rate: 117 Respiratory Rate: 18 O2 Sat (%): 97 Height: 187.96 cm Weight: 124.3 kg ANE Physical Exam - Airway Neck exam: FROM Mallampati Score: Class 2 - Pulmonary Pulmonary: no respiratory distress - Cardiovascular Cardiovascular: tachycardia - ASA Status ASA Status: III ANE Anesthesia Plan Anesthesia Plan: GA with mask
--- NOTE | 2017-07-24 16:15 | PDCARD ---
Cardioversion Procedure Procedure: electrical cardioversion Indications: other (atrial flutter) Consent: signed and in chart Anticoagulation: warfarin Procedural Details: Pads were placed in anterior-posterior position. Synchronized cardioversion attempt #1: 200J Results: normal sinus rhythm Conclusions: successful cardioversion Patient Problems: Problems Problem Status Onset Fatigue Acute Tachycardia Acute Acute on chronic systolic heart failure, NYHA class 3 Acute Atrial tachycardia Acute Dyspnea Acute Pulmonary edema Acute
--- NOTE | 2017-07-24 16:16 | CPEKG ---
Heart Rate: 66 RR Interval: 909 P-R Interval: 196 QRSD Interval: 96 QT Interval: 432 QTC Interval: 453 P [place]: 56 QRS [place]: 71 T Wave [place]: 13 EKG Severity - OTHERWISE NORMAL ECG - EKG Impression: SINUS RHYTHM EKG Impression: MINIMAL ST DEPRESSION, LATERAL LEADS Electronically Signed By: Ronni Diane 24-Jul-2017 16:38:00
--- NOTE | 2017-07-24 16:17 | POSTANESTH ---
Post Anesthetic Evaluation Cardiovascular Status: Normal, Stable Respiratory Status: Normal, Stable Level of Consciousness/Mental Status: Can Participate in Eval, Mildly Sleepy, Arousable Pain Control: Adequate, Prn Tx Ordered Nausea/Vomiting Control: Adequate, Prn Tx Ordered Complications Possibly Related to Anesthesia: None Noted
--- NOTE | 2017-07-24 18:32 | HOSPPROG ---
Hospitalist Progress Note Assessment/Plan: DIAGNOSES: # acute on chronic hypoxemic respiratory failure, does use oxygen at home # rapid atrial flutter * Remains rapid in mid 110s * I reviewed this with Dr. Rand and Dr. Ronni Diane today, this same arrhythmia has actually been present in the past in looking at the current EKG data compared the past this does appear to be his previous atrial flutter come back. Plan will be for cardioversion attempt today # acute febrile illness temperature 39 degrees * Etiology is really quite uncertain and on review of symptoms I can find no specific localizing concerns; has some density at the left lower lobe but is known to have left hemidiaphragm paralysis and this could be pneumonia versus atelectasis there * Doubt UTI as he has no symptoms; the hematuria is probably due to his excessive anticoagulation, white blood cell count minimal * Cultures drawn and are pending # acute renal failure today, suspect hemodynamic etiology possibly due in part to his AFib, along with losartan use # excessive anticoagulation with Coumadin for his two mechanical valves and history of AFib * Improved so far today but still greater than 5 after 1 dose of vitamin K, will follow closely at this time * No current evidence of significant bleeding * Over the last couple years he has generally done quite well on 6 mg Coumadin and his INRs on my review during that period have been very good, he did recently have an increase in his dose to 7 mg after a single INR down to 2, plan to resume Coumadin at 6 mg at this time # elevated TSH suggesting possibility of hypothyroidism * Will check repeat TSH as well as a free T3 and T4 * Has symptoms that certainly could be impacted by hypothyroidism but hard to tell whether he has actual symptomatic hypothyroidism at present due to multiple other acute issues # history of CAD and bypass surgery, nothing currently to suggest ischemia # chronic kidney disease at her near baseline now # obstructive sleep apnea # history of traumatic brain injury Patient seen by me today on hospitals rounds as well as multidisciplinary rounds I have reviewed the case in detail with Dr. Robert Rand and Dr. Ronni Diane today PLANS: * await cultures, continue empiric antibiotic therapy, will add some azithromycin at this time for coverage of possible pneumonia * Resume Coumadin now at his usual 6 mg dose * Mechanical DVT prophylaxis, already anticoagulated * Recheck TSH and check free T3 and free T4 * Hold his losartan today, and recheck renal function in the morning, hopefully the cardioversion will be helpful for that SUBJECTIVE: Better energy today, breathing easier but still not back to his baseline Appetite is a little bit better No pain no fevers or chills OBJECTIVE Vitals reviewed: Heart rate remains in the 110s, other vital signs stable, no recurrence of the fever that he had 2 nights ago Content Strategist, my review: 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, consistent with atrial flutter with probably a 2-1 conduction with a slow underlying flutter rate in the 220s Exam: alert oriented skin warm dry color ok resps not labored lungs clear BSs heart regular abd soft nondistended nontender, bowel sounds present limbs warm, no edema iv site ok Laboratory data: INR down to 2.7 today Creatinine up slightly today at 1.5, sugar high at 195 Objective: Vital Signs Temp Pulse Resp BP Pulse Ox 36.5 C 66 18 106/74 94 07/24/17 17:12 07/24/17 17:12 07/24/17 17:12 07/24/17 17:12 07/24/17 17:12 Laboratory Results 07/24/17 09:58 07/24/17 09:58 07/23/17 07/24/17 07/25/17 06:59 06:59 06:59 Intake Total 950 1280 810 Output Total 350 450 350 Balance 600 830 460 PT 29.0 SEC (12.0-15.0) H 07/24/17 04:42 INR 2.75 (0.83-1.16) H 07/24/17 04:42 - Time Spent With Patient Time Spent with Patient: greater than 35 minutes Time Spent with Patient: Greater than 35 minutes spent on this patients care, greater than 50% of time spent counseling, educating, and coordinating care regarding the above mentioned plan. ICD10 Worksheet Patient Problems: Problems Problem Status Onset Fatigue Acute Tachycardia Acute Acute on chronic systolic heart failure, NYHA class 3 Acute Atrial tachycardia Acute Dyspnea Acute Pulmonary edema Acute
[2017-07-24] MEDS ORDERED: MAGNESIUM SULF 1 GM/DEXTROSE 100 ML IV ONE (18:44)
[2017-07-24] MEDS: MULTIVITAMINS 1 EACH TAB PO SCH (21:49)
[2017-07-24] MEDS: ATORVASTATIN CALCIUM 20 MG TAB PO SCH (21:50)
[2017-07-24] MEDS: ASPIRIN EC 325 MG TAB PO SCH (21:50)
[2017-07-25 06:14] LABS: INR 2.87 (0.83-1.16)
[2017-07-25] MEDS ORDERED: NS 250 ML IV ONE (08:38)
--- NOTE | 2017-07-25 08:42 | HOSPPROG ---
Hospitalist Progress Note Assessment/Plan: # a-flutter with RVR s/p cardioverison now in NSR - cont warfarin, coreg and amiodarone - possible triggers include UTI and stopping amiodarone # acute on chronic resp failure - seems at baseline; likely d/t a-flutter with RVR # supratherapeutic INR # ALISSON, worse today - holding losartan and diuretics today - small NS bolus # UTI - suspect this is the cause of his fever - e. faecalis - start ampicillin # CAD s/p CABG - cont asa/statin/AC # DM - metformin # MVR - on AC # depr -- wellbutrin # hematuria - resolved; d/t INR and UTI Subjective: SOB resolved now that in NSR; asking aobut amiodarone or other manner to prevent a-flutter Objective: Vital Signs Temp Pulse Resp BP Pulse Ox 36.8 C 65 18 113/67 97 07/25/17 07:49 07/25/17 07:49 07/25/17 07:49 07/25/17 07:49 07/25/17 07:49 Laboratory Results 07/24/17 09:58 07/25/17 05:51 07/24/17 07/25/17 07/26/17 05:59 05:59 05:59 Intake Total 1280 1375 Output Total 450 350 Balance 830 1025 PT 30.0 SEC (12.0-15.0) H 07/25/17 05:51 INR 2.87 (0.83-1.16) H 07/25/17 05:51 chart reviewed CXR personally reviewed - Physical Exam Constitutional: no apparent distress, appears nourished Ears, Nose, Mouth, Throat: hearing normal Cardiovascular: regular rate and rhythym, systolic murmur, other (S1S2 click), No edema Respiratory: no respiratory distress, no rales or rhonchi Gastrointestinal: soft, non-tender abdomen, no palpable masses ICD10 Worksheet Patient Problems: Problems Problem Status Onset Acute on chronic systolic heart failure, NYHA class 3 Acute Atrial tachycardia Acute Pulmonary edema Acute Dyspnea Acute Fatigue Acute Tachycardia Acute
[2017-07-25] MEDS ORDERED: FUROSEMIDE 20 MG TAB PO SCH (09:00)
[2017-07-25] MEDS: buPROPion XL 150 MG TAB PO SCH (09:49)
[2017-07-25] MEDS: CARVEDILOL 6.25 MG TAB PO SCH ×2 (09:49→18:27)
[2017-07-25] MEDS: AMIODARONE HCL 200 MG TAB PO SCH (09:50)
[2017-07-25] MEDS: metFORMIN HCL 500 MG TAB PO SCH (09:50)
[2017-07-25] MEDS ORDERED: TORSEMIDE 20 MG TAB PO SCH (10:00)
[2017-07-25] MEDS: AMPICILLIN SODIUM 2 GM in NS 100 ML IV SCH ×3 (10:53→22:29)
--- NOTE | 2017-07-25 14:16 | ASMTCMCOM ---
CM Note CM Note Notes: Patient reviewed in rounds. He will need to stay one more night. He will go home maybe tomorrow but needs HHC via [facility]. Needs PT and OT. Therapy recommending patient use walker. [facility] aware of possible weekend dc. CM to follow. Plan: Home with [facility] HHC Date Signed: 07/25/2017 02:15 PM Electronically Signed By:Therese Sorto RN
--- NOTE | 2017-07-25 15:42 | PDCARPN ---
Cardiology Progress Note Chief Complaint: Patient reports fatigue symptoms Assessment/Plan: Assessment: 72-year-old male with significant past history that includes CAD previous CABG, valvular heart disease with mechanical aortic and mitral valve, obesity, BUCKY ( on oxygen at night,), hypertension, hyperlipidemia, paroxysmal atrial fibrillation and atrial tachycardia, chronic kidney disease and diabetes. Admitted on 07/22/2017 for shortness of breath. Rapid heart rate since Friday. Electrocardiogram done ER showing junctional tachycardia, review by EP felt to be a flutter. Noted to be supratherapeutic on admission with INR 12.4. Negative troponin. Patient reporting no episodes of chest pressure pain. Echocardiogram done on 07/22 showed EF 45-50%, normal RV size, LA severely dilated, no MR, prosthetic mitral valve gradients within normal limits , mechanical aortic valve, no mechanical aortic valve stenosis or regurgitation. Ldfl-tn-rlkszion TR, RVSP 32 mm Hg. Patient's most recent cardiac catheterization by Dr. Tejeda showed adequate coronary circulation. Patient did undergo cardioversion by Dr. Rand on 07/24/2017. Today: Patient reports dyspnea on exertion has improved since returning back into sinus rhythm. Denies of any chest pain pressure or symptoms suggesting of ischemia. INR is therapeutic at 2.87. Creatinine is noted to be up from 1.5 yesterday to 2.0. Continues cardiac monitoring showing patient maintaining sinus rhythm with occasional PVC. No other malignant arrhythmias or pauses noted. Plan: 1. Atrial flutter: Status post cardioversion yesterday, remains in sinus rhythm. Continuation of amiodarone and carvedilol. Discussed with Dr. Diane, with recommendations of see electrophysiology Services in outpatient setting with consideration of having patient undergo possible ablation. Patient resumed on warfarin therapy. 2. CAD: Patient reports no chest pain or pressure. Continue on aspirin therapy. On atorvastatin for secondary risk prevention. 3. Chronic systolic heart failure: Recent echocardiogram showing EF 45-50%. Patient continue on home dose of carvedilol. Losartan and diuretics are on hold due to renal insufficiency. 4. Valvular heart disease: Remote mechanical aortic and mitral valve implantations. Recent echocardiogram showing valve functioning within normal limits, normal gradient across mitral valve. Patient resumed on anticoagulation of warfarin. INR within normal limits. 5. AK I.: Creatinine up to 2.0 today. Losartan and metformin are on hold. Small NS bolus given today. 6. Hyperlipidemia: Resume home statin dosage. 07/25/17 15:41 Subjective: he denies of any chest pain or pressure symptoms suggesting of ischemia. Reports shortness of breath with exertion has improved since cardioversion. Denies of any palpitations or lightheadedness. Reviewed/Discussed With: hospitalist (Dr Sullivan), other (Dr Rand) Objective: Vital Signs (8 Hrs) Temp Pulse Resp BP Pulse Ox 07/25/17 12:08 36.8 C 56 L 18 100/56 L 99 07/25/17 07:49 36.8 C 65 18 113/67 97 Intake/Output (24 Hrs) 07/24/17 07/25/17 07/26/17 05:59 05:59 05:59 Intake Total 1280 1375 Output Total 450 350 Balance 830 1025 Intake: Oral (ml) 1280 1100 IV Intake (ml) 215 IV Infused (ml) 60 cefTRIAXone 1 GM/DEXTROSE 60 50 ml @ 100 mls/hr IV DAILY LIAT Rx#:[id number] Output: Urine (ml) 450 350 Toilet 450 Urinal 350 Other: Weight 124.3 kg 123.9 kg Number of Voids Bedside Commode 2 Toilet 1 1 Urinal 3 Result Diagrams: 07/24/17 09:58 07/26/17 04:02 - Physical Exam Constitutional: no apparent distress, obese Ears, Nose, Mouth, Throat: moist mucous membranes Cardiovascular: regular rate and rhythm, no murmurs ( Schleicher mechanical valve click noted), pulses symmetric bilat, No jugular vein distention, No carotid bruit Peripheral Pulses: 1+: dorsalis-pedis (R), dorsalis-pedis (L), 2+: carotid (R), carotid (L) Respiratory: other ( diminished in bases bilateral. No rhonchi, rales, or wheezing noted. No accessary muscle use, no intercostal muscle retraction noted.) Gastrointestinal: normoactive bowel sounds Skin: no rashes, warm, No no edema ( +1 peripheral edema bilateral lower extremities) Neurologic: AAOx3 Psychiatric: cooperative, following commands ICD10 Worksheet Patient Problems: Problems Problem Status Onset Fatigue Acute Tachycardia Acute Acute on chronic systolic heart failure, NYHA class 3 Acute Atrial tachycardia Acute Dyspnea Acute Pulmonary edema Acute
[2017-07-25] MEDS ORDERED: WARFARIN SODIUM 3 MG TAB PO ONE (16:00)
[2017-07-25] MEDS: MULTIVITAMINS 1 EACH TAB PO SCH (22:29)
[2017-07-25] MEDS: ASPIRIN EC 325 MG TAB PO SCH (22:29)
[2017-07-25] MEDS: ATORVASTATIN CALCIUM 20 MG TAB PO SCH (22:30)
[2017-07-26] MEDS: AMPICILLIN SODIUM 2 GM in NS 100 ML IV SCH ×2 (04:14→08:44)
[2017-07-26 04:43] LABS: INR 3.68 (0.83-1.16); PROTIME(PATIENT) 36.2 SEC (12.0-15.0)
[2017-07-26 07:36] VITALS: BP 123/64
[2017-07-26] MEDS: AMIODARONE HCL 200 MG TAB PO SCH (08:46)
[2017-07-26] MEDS: buPROPion XL 150 MG TAB PO SCH (08:46)
[2017-07-26] MEDS: CARVEDILOL 6.25 MG TAB PO SCH (08:46)
--- NOTE | 2017-07-26 10:25 | GDS ---
[f rep st] DISCHARGE SUMMARY ALL DIAGNOSES: 1. Cjfqv-qf-wstflnn diastolic congestive heart failure. 2. Atrial flutter with rapid ventricular response. 3. Acute kidney injury. 4. Urinary tract infection, with Enterococcus. 5. Supratherapeutic INR. 6. Vdsze-uc-hlsdywz respiratory failure. 7. Diabetes mellitus. 8. Mitral valve replacement. 9. Hematuria. 10. Depression, on Wellbutrin. HOSPITAL COURSE BY PROBLEM: 1. Qfvuh-kb-rqeahbj diastolic dysfunction, triggered likely by atrial flutter with rapid ventricular response: He had self discontinued his amiodarone a few months ago. Precipitant for atrial flutter was likely this, as well as potentially a urinary tract infection. He was cardioverted and has been maintained in sinus rhythm since. He will be restarted on amiodarone. We will continue his Coreg, as well as his warfarin. 2. Supratherapeutic INR: His INR was 12 on presentation. It is not entirely clear to me why it was so elevated. He did receive some vitamin K and has been restarted on warfarin. On the day of disch arge, his INR is 3.6. I have recommended that he hold 1 dose of warfarin tonight and start on a slig htly lower dose at 4 mg daily. He will follow up in the Anticoagulation Clinic next week. New medic ations that may affect his INR include amiodarone, as well as amoxicillin. 3. Acute kidney injury: This is in the setting of diuresis. It improved when we held his Cozaar an d gave him a small fluid bolus. His creatinine is 1.7 on discharge, still not at his baseline. He w ill need to have this followed closely. I recommend that he continue to hold his Cozaar, as well as metformin and follow up with Cardiology next week. The clinic should give him a call on Friday; luis escobar, I have given him the [facility] number in case he does not receive a call for an appointment. 4. Diabetes mellitus type 2: I recommend that he hold his metformin now in the setting of the kidne y injury. He will follow up with Dr. Tavarez in 1-2 weeks to reevaluate his diabetes. I do not see t hat an A1c has been checked in our system, at least since 2008. 5. Mitral valve replacement: On anticoagulation. He will follow up in the Anticoagulation Clinic a s above. 6. Coronary artery disease, status post coronary artery bypass graft: This is stable. He is on asp irin and statin, as well as anticoagulation. 7. Urinary tract infection: This is due to Enterococcus faecalis. It is sensitive to penicillins. I have given him a total of 7 days on Augmentin therapy. FOLLOWUP: 1. Dr. Tavarez to follow his diabetes. 2. [facility] to follow on his kidney function. Consider restarting Cozaar, as well as his respo nse to amiodarone. 3. Coumadin Clinic to check his INR next week. 4. Dr. Dietz, his urologist, to evaluate for possible urinary retention leading to a urinary tract i nfection. BILLING: I spent more than 30 minutes on the day of discharge coordinating care. Copy requested to: Dr. Tavarez /[id number]/MODL
--- NOTE | 2017-07-26 10:41 | PDCARPN ---
Cardiology Progress Note Chief Complaint: Patient reports he would like to go home. Assessment/Plan: Assessment: 72-year-old male with significant past history that includes CAD previous CABG, valvular heart disease with mechanical aortic and mitral valve, obesity, BUCKY ( on oxygen at night,), hypertension, hyperlipidemia, paroxysmal atrial fibrillation and atrial tachycardia, chronic kidney disease and diabetes. Admitted on 07/22/2017 for shortness of breath. Rapid heart rate since Friday. Electrocardiogram done ER showing junctional tachycardia, review by EP felt to be a flutter. Noted to be supratherapeutic on admission with INR 12.4. Negative troponin. Patient reporting no episodes of chest pressure pain. Echocardiogram done on 07/22 showed EF 45-50%, normal RV size, LA severely dilated, no MR, prosthetic mitral valve gradients within normal limits , mechanical aortic valve, no mechanical aortic valve stenosis or regurgitation. Ithj-ch-girccjxh TR, RVSP 32 mm Hg. Patient's most recent cardiac catheterization by Dr. Tejeda showed adequate coronary circulation. Patient did undergo cardioversion by Dr. Rand on 07/24/2017. Today: Patient reports no chest pain, pressure, or shortness of breath. Reports no palpitations. Continuous monitoring and evaluation advisor shows that he is maintaining sinus rhythm with occasional PVC, no malignant arrhythmias or pauses noted. Creatinine improved today down to 1.7. INR supratherapeutic at 3.68. Plan: 1. Atrial flutter: Status post cardioversion, remains in sinus rhythm. Continuation of amiodarone and carvedilol. Patient resumed on warfarin therapy.Will have office make appointment for patient to be seen by Dr. Diane, electrophysiology, to discuss potential ablation for atrial flutter. 2. CAD: Patient reports no chest pain or pressure. Continue on aspirin therapy. On atorvastatin for secondary risk prevention. 3. Chronic systolic heart failure: Recent echocardiogram showing EF 45-50%. Patient continue on home dose of carvedilol. Creatinine elevated , after IV diuresis. At this time, will hold diuretic therapy, and losartan, re-evaluate outpatient next week for potentially restarting on therapy. Have discussed with patient importance of daily weights, he is to notify us if he gains more than 2 lb in a day or 5 lb in a week. 4. Valvular heart disease: Remote mechanical aortic and mitral valve implantations. Recent echocardiogram showing valve functioning within normal limits, normal gradient across mitral valve. Patient resumed on anticoagulation of warfarin. INR supratherapeutic. Discussed with Dr. Sullivan, Will hold warfarin dosage today. reduce home dosage. Early follow- up in Coumadin Clinic early next week. 5. ALISSON.: Creatinine down to 1.7. Continue to hold losartan due to mild hypotension. continue to hold diuretic therapy. 6. Hyperlipidemia: Resume home statin dosage. Planning for patient to be discharged today. I will have our office call him Friday to schedule appointment with early follow-up for heart failure, also schedule appointment to see Dr. Diane in the next 2-3 weeks to discuss atrial flutter ablation. 07/26/17 10:36 Subjective: Patient denies of any chest pressure or pain. Reports no palpitations. Reports significant improvement in dyspnea on exertion. Denies of any orthopnea , PND, lightheadedness, near-syncope or syncopal events. Reviewed/Discussed With: hospitalist (Dr Sullivan), other (Dr Cruz and Dr Garcia) Objective: Vital Signs (8 Hrs) Temp Pulse Resp BP Pulse Ox 07/26/17 08:46 60 07/26/17 07:34 36.4 C 54 L 16 123/64 H 97 07/26/17 04:00 36.5 C 62 16 123/66 H 98 Intake/Output (24 Hrs) 07/25/17 07/26/17 07/27/17 05:59 05:59 05:59 Intake Total 1375 1800 Output Total 350 600 Balance 1025 1200 Intake: Oral (ml) 1100 1570 IV Intake (ml) 215 IV Infused (ml) 60 230 Ampicillin Sodium 2 gm In 230 Ns 100 ml @ 220 mls/hr IV Q6H LIAT Rx#:[id number] cefTRIAXone 1 GM/DEXTROSE 60 50 ml @ 100 mls/hr IV DAILY LIAT Rx#:[id number] Output: Urine (ml) 350 600 Urinal 350 600 Other: Weight 123.9 kg 124.8 kg Number of Voids Toilet 1 Urinal 3 Result Diagrams: 07/24/17 09:58 07/26/17 04:02 - Physical Exam Constitutional: no apparent distress, obese Ears, Nose, Mouth, Throat: moist mucous membranes Cardiovascular: regular rate and rhythm, no murmurs, pulses symmetric bilat, other ( Vikram mechanical valve clicks.), No jugular vein distention Peripheral Pulses: 1+: dorsalis-pedis (R), dorsalis-pedis (L), 2+: carotid (R), carotid (L) Respiratory: other ( Lungs are clear but diminished in bases bilateral, no rhonchi, rales, wheezing noted.) Gastrointestinal: normoactive bowel sounds Skin: warm, other ( Trace pedal edema bilateral lower extremities.) Neurologic: AAOx3 Psychiatric: cooperative, interactive, following commands ICD10 Worksheet Patient Problems: Problems Problem Status Onset Acute on chronic systolic heart failure, NYHA class 3 Acute Atrial tachycardia Acute Pulmonary edema Acute Dyspnea Acute Fatigue Acute Tachycardia Acute
--- NOTE | 2017-07-26 17:38 | ASDISCHSUM ---
Discharge Information Plan Status:Home with Home Health Medically Cleared to Leave:07/26/2017 Discharge Date:07/26/2017 11:55 AM D/C Disposition:Home Health Service [facility] D/C Disposition:Home, Routine, Self-Care Projected Discharge Date:07/26/2017 11:00 AM Transportation at D/C:Self Discharge Delay Reason: Follow-Up Date:07/26/2017 11:00 AM Discharge Slot:2 - 12:01 pm - 18:00 pm Final Diagnosis:tachycardia Placement Information Referral Type:*Home Health Care Services Referral ID:[id number] Provider Name:[facility] Care Address 1:[address] Address 2: City:[place] Selection Factors: State:[place] Patient Contact Information Contact Name:WILMER Relationship:Broth Address:[address] Work Phone: City: [place] Alternate Phone: State/Zip Code:[place] [address] Email: Financial Information Financial Class:Medicare Primary Plan Desc:MEDICARE INPATIENT Primary Plan Number:[id number] Secondary Plan Desc:[employer] FEDERAL PLAN Secondary Plan Number:[id number] Assessment Information [facility] CM Progress Note CM Note CM Note Notes: Spoke w/pt, PT/OT recommending homecare. Notified Leticia at [facility], they will be able to go to [place] where pt lives. DC date unclear. DC Plan: [facility] Date Signed: 07/23/2017 04:10 PM Electronically Signed By:Debbie Cain RN [facility] CM Progress Note CM Note CM Note Notes: Patient reviewed in rounds. He will need to stay one more night. He will go home maybe tomorrow but needs HHC via [facility]. Needs PT and OT. Therapy recommending patient use walker. [facility] aware of possible weekend dc. CM to follow. Plan: Home with [facility] Date Signed: 07/25/2017 02:15 PM Electronically Signed By:Therese Sorto RN Intervention Information
== END 2017-07-26 11:55 | disposition home or self-care (01) | DRG 291 ==
LOC: OBSVTOIN 14:41 → F2W 15:53
PROVIDERS: ADMIT Family Medicine; ATTEND Family Medicine
PROC: 5A2204Z Restoration of Cardiac Rhythm, Single (ICD-10-PCS; principal; 2017-07-24)
DX: I50.33 Acute on chronic diastolic (congestive) heart failure (principal); I48.92 Unspecified atrial flutter; J96.21 Acute and chronic respiratory failure with hypoxia; N39.0 Urinary tract infection, site not specified; B95.2 Enterococcus as the cause of diseases classified elsewhere; N17.9 Acute kidney failure, unspecified; R79.1 Abnormal coagulation profile; E11.9 Type 2 diabetes mellitus without complications; I48.0 Paroxysmal atrial fibrillation; I25.10 Atherosclerotic heart disease of native coronary artery without angina pectoris; F32.9 Major depressive disorder, single episode, unspecified; I12.9 Hypertensive chronic kidney disease with stage 1 through stage 4 chronic kidney disease, or unspecified chronic kidney disease; N18.9 Chronic kidney disease, unspecified; G47.33 Obstructive sleep apnea (adult) (pediatric); D64.9 Anemia, unspecified; Z95.5 Presence of coronary angioplasty implant and graft; Z95.2 Presence of prosthetic heart valve; Z79.01 Long term (current) use of anticoagulants; Z95.1 Presence of aortocoronary bypass graft; Z98.1 Arthrodesis status; Z99.81 Dependence on supplemental oxygen; Z85.46 Personal history of malignant neoplasm of prostate; Z87.820 Personal history of traumatic brain injury; E66.9 Obesity, unspecified; Z68.35 Body mass index [BMI] 35.0-35.9, adult
CPT/HCPCS: 96374; 97116-GP; 97161-GP; 97165-GO; 97530-GP; 97535-GO; G8978-GP-CJ; G8979-GP-CI; G8987-GO-CJ; G8988-GO-CI; J0153; J0290; J0461; J0696; J1940; J2704; J3475

== ENCOUNTER 2017-09-24 08:57 | Inpatient (IN) | payer OTHER, BC ==
--- NOTE | 2017-09-24 09:20 | CPEKG ---
Heart Rate: 106 RR Interval: 566 P-R Interval: 129 QRSD Interval: 86 QT Interval: 384 QTC Interval: 510 P [place]: 0 QRS [place]: 49 T Wave [place]: -66 EKG Severity - ABNORMAL ECG - EKG Impression: SINUS TACHYCARDIA EKG Impression: PROLONGED QT INTERVAL Electronically Signed By: Sherif Zuluaga 24-Sep-2017 14:24:39
--- NOTE | 2017-09-24 09:22 | EDPHY ---
HPI/HX/ROS/PE/MDM Narrative: CHIEF COMPLAINT: Atrial fibrillation HPI: This patient is an anticoagulated (Warfarin) 72 year old male with significant cardiac history including atrial fibrillation, CAD s/p CABG, CHF, hypertension. He feels as if he has been in atrial fibrillation since Friday. He complains of shortness of breath and fatigue. He noted his heart rate was around 112 last night. He reports is is usually in the low 60s. He took two doses of his prescribed Amiodarone without without relief. He denies missing any doses recently. He denies any chest pain. No fever. No headache, nausea, vomiting, diarrhea. The patient denies any recent medication changes. His last cardiology follow up was at [facility] at the end of June. He underwent electrocardioversion for a-fib at that time. REVIEW OF SYSTEMS: Aside from elements discussed in the HPI, a comprehensive 10-point review of systems was reviewed and is negative. PMH: 1. Mechanical aortic and mitral valve replacements. 2. Chronic kidney disease. 3. CAD s/p CABG 4. History of prostate cancer 5. CHF with EF of 50% by echocardiogram 09/12/16 6. BUCKY, on CPAP, home oxygen 7. Hypertension 8. History of TBI 9. Gentamicin toxicity causing chronic dizziness Reviewed past medical records including admission 07/22/17 for shortness of breath. SOCIAL HISTORY: . Lives in [place]. Does not abuse tobacco, drugs, or alcohol. PHYSICAL EXAM: General:Patient is alert, in no acute distress. ENT:Eyes are normal to inspection. ENT inspection normal. Neck: Normal inspection. Full range of motion. Respiratory:No respiratory distress. Breath sounds normal bilaterally. Cardiovascular: Mild tachycardia. Strong peripheral pulses. Normal cap refill. Abdomen:The abdomen is nontender to palpation. There are no peritoneal signs. There are normal bowel sounds. Back: Normal to inspection. No tenderness to palpation. Skin: Normal color. No rash. Warm and dry. Extremities: Trace pedal edema bilaterally. Full range of motion. Neuro: Oriented x3. Normal motor function. Normal sensory function. ED Course: 72 y/o male presents with shortness of breath and fatigue over the last two days. Patient's heart rate is regular, so I do not suspect he is in atrial fibrillation. EKG performed at bedside. Plan for chest x-ray, labs including CBC , chemistries, troponin, BNP, coag. EKG was ordered and interpreted by myself. Please see [email or web address] for official reading. Sinus tachycardia. Reviewed CXR. Patchy left lower lobe infiltrate. See radiologist report below. BNP elevated at 4160. 10:[address] Consult[address] with [address]ist service. Dr. Hunter accepts admission for CHF exacerbation. - Data Points Imaging Results: Imaging Impressions Chest X-Ray 09/24/17 09:23 Impression: Patchy left lower lobe pneumonia versus atelectasis. Imaging: I viewed and interpreted images myself Laboratory Results: Laboratory Results 09/24/17 09:30 09/24/17 09:45 09/24/17 09/24/17 09/24/17 09:45 09:45 09:45 WBC RBC Hgb Hct MCV MCH MCHC RDW Plt Count MPV Neut % (Auto) Lymph % (Auto) [place] % (Auto) Eos % (Auto) Baso % (Auto) Nucleat RBC Rel Count Absolute Neuts (auto) Absolute Lymphs (auto) Absolute Monos (auto) Absolute Eos (auto) Absolute Basos (auto) Absolute Nucleated RBC Immature Gran % Immature Gran # PT 21.8 SEC H SEC (12.0-15.0) INR 1.89 H (0.83-1.16) APTT 31.1 SEC SEC (23.0-38.0) Sodium 141 mEq/L mEq/L (135-145) Potassium 4.5 mEq/L mEq/L (3.3-5.0) Chloride 107 mEq/L mEq/L (97-110) Carbon Dioxide 22 mEq/l mEq/l (22-31) Anion Gap 12 mEq/L mEq/L (8-16) BUN 27 mg/dL H mg/dL (7-23) Creatinine 1.4 mg/dL H mg/dL (0.7-1.3) Estimated GFR 50 Glucose 166 mg/dL H mg/dL (70-100) Calcium 9.2 mg/dL mg/dL (8.5-10.4) POC Troponin I NT-Pro-B Natriuret Pep 4160 pg/mL H pg/mL (0-125) 09/24/17 09/24/17 09:32 09:30 WBC 7.60 10^3/uL 10^3/uL (3.80-9.50) RBC 4.67 10^6/uL 10^6/uL (4.40-6.38) Hgb 14.0 g/dL g/dL (13.7-17.5) Hct 41.6 % % (40.0-51.0) MCV 89.1 fL fL (81.5-99.8) MCH 30.0 pg pg (27.9-34.1) MCHC 33.7 g/dL g/dL (32.4-36.7) RDW 14.6 % % (11.5-15.2) Plt Count 208 10^3/uL 10^3/uL (150-400) MPV 10.9 fL fL (8.7-11.7) Neut % (Auto) 70.3 % % (39.3-74.2) Lymph % (Auto) 13.2 % L % (15.0-45.0) [place] % (Auto) 8.2 % % (4.5-13.0) Eos % (Auto) 7.0 % % (0.6-7.6) Baso % (Auto) 0.8 % % (0.3-1.7) Nucleat RBC Rel Count 0.0 % % (0.0-0.2) Absolute Neuts (auto) 5.35 10^3/uL 10^3/uL (1.70-6.50) Absolute Lymphs (auto) 1.00 10^3/uL 10^3/uL (1.00-3.00) Absolute Monos (auto) 0.62 10^3/uL 10^3/uL (0.30-0.80) Absolute Eos (auto) 0.53 10^3/uL H 10^3/uL (0.03-0.40) Absolute Basos (auto) 0.06 10^3/uL 10^3/uL (0.02-0.10) Absolute Nucleated RBC 0.00 10^3/uL 10^3/uL (0-0.01) Immature Gran % 0.5 % % (0.0-1.1) Immature Gran # 0.04 10^3/uL 10^3/uL (0.00-0.10) PT INR APTT Sodium Potassium Chloride Carbon Dioxide Anion Gap BUN Creatinine Estimated GFR Glucose Calcium POC Troponin I 0.04 ng/mL ng/mL (0.00-0.08) NT-Pro-B Natriuret Pep Point of Care Test Results: Chemistry 09/24/17 09:32 POC Troponin I 0.04 ng/mL ng/mL (0.00-0.08) General Time Seen by Provider: 09/24/17 09:09 Initial Vital Signs: Initial Vital Signs Temperature (C) 36.9 C 09/24/17 09:02 Heart Rate 106 H 09/24/17 09:02 Respiratory Rate 20 09/24/17 09:02 Blood Pressure 124/94 H 09/24/17 09:02 O2 Sat (%) 94 09/24/17 09:02 O2 Delivery Mode Room Air Allergies/Adverse Reactions: gentamicin [Gentamicin] Allergy (Mild, Verified 09/24/17 09:00) dizzy Home Medications: Medication Instructions Recorded Carvedilol [Coreg] 12.5 mg PO BID 08/16/16 Multivitamins [Multivitamin (*)] 1 each PO HS 08/16/16 Simvastatin 40 mg PO HS 08/16/16 Aspirin EC [Aspirin EC 325 mg (*)] 325 mg PO HS 07/22/17 Bupropion HCl [Wellbutrin Xl] 300 mg PO DAILY 07/22/17 Amiodarone HCl [Pacerone (*)] 200 mg PO DAILY #30 tab 07/26/17 Warfarin Sodium [Coumadin 5MG (*)] 5 mg PO HS 09/24/17 metFORMIN HCL [Glucophage 1000 mg] 1,000 mg PO BIDMEAL 09/24/17 Departure - Departure Disposition: [facility] Inpatient Acute Clinical Impression: Congestive heart failure Qualifiers: Heart failure type: unspecified Heart failure chronicity: unspecified Qualified Code(s): I50.9 - Heart failure, unspecified CHF exacerbation Qualifiers: Heart failure type: unspecified Qualified Code(s): I50.9 - Heart failure, unspecified Condition: Fair Report Scribed for: Sherif Zuluaga Report Scribed by: Tiff Antonio Date of Report: 09/24/17 Time of Report: 11:55 Physician Review and Approval Statement: Portions of this note were transcribed by an ED scribe. I personally performed the history, physical exam, and medical decision making; and confirm the accuracy of the information in the transcribed note.
[2017-09-24 09:38] LABS: PLATELET COUNT 208 10^3/uL (150-400)
[2017-09-24 10:03] LABS: INR 1.89 (0.83-1.16); PROTIME(PATIENT) 21.8 SEC (12.0-15.0)
[2017-09-24] MEDS ORDERED: ACETAMINOPHEN 325 MG TAB PO PRN (13:53)
[2017-09-24] MEDS ORDERED: ONDANSETRON DISINTEGRATING 4 MG TAB PO PRN (13:53)
[2017-09-24] MEDS ORDERED: ONDANSETRON 4 MG/2 ML VIAL IVP PRN (13:53)
[2017-09-24] MEDS ORDERED: FUROSEMIDE 20 MG/2 ML VIAL IVP ONE (14:23)
--- NOTE | 2017-09-24 14:35 | CPEKG ---
Heart Rate: 107 RR Interval: 561 P-R Interval: 115 QRSD Interval: 88 QT Interval: 396 QTC Interval: 529 P [place]: 0 QRS [place]: 62 T Wave [place]: -69 EKG Severity - ABNORMAL ECG - EKG Impression: SINUS TACHYCARDIA EKG Impression: NONSPECIFIC T ABNORMALITIES, LATERAL LEADS EKG Impression: PROLONGED QT INTERVAL Electronically Signed By: Jinny Salinas 24-Sep-2017 16:15:43
--- NOTE | 2017-09-24 15:33 | PDGENHP ---
History and Physical - Chief Complaint shortness of breath - History of Present Illness Mr Ragland is a 72yo M with a history of CAD s/p CABG, atrial fibrillation, mechanical mitral and aortic valve replacements on warfarin, mild LV dysfunction presents with worsening shortness of breath since Friday. This was associated with generalized fatigue, leg/thigh cramping and some orthopnea. He denies chest pain, dizziness, syncope, leg swelling. He noted that his heart rate was elevated in the 110s on Friday which was unusual for him and continued to remain >100 over the last few days. He took 2 doses (400mg) of amiodarone yesterday with no relief in symptoms or resolution of elevated HR. He made an appointment with [facility] and went this morning however they told him that the appointment was actually yesterday so he decided to come to the emergency department. In the ED, found to be tachycardic (sinus on initial ECG) with elevated BNP so was admitted for further management. History Information - Allergies/Home Medication List Allergies/Adverse Reactions: gentamicin [Gentamicin] Allergy (Mild, Verified 09/24/17 09:00) dizzy Home Medications: Carvedilol [Coreg] 12.5 mg PO BID 08/16/16 [Last Taken 09/24/17] Multivitamins [Multivitamin (*)] 1 each PO HS 08/16/16 [Last Taken 09/23/17] Simvastatin 40 mg PO HS 08/16/16 [Last Taken 09/23/17] Aspirin EC [Aspirin EC 325 mg (*)] 325 mg PO HS 07/22/17 [Last Taken 09/23/17] Bupropion HCl [Wellbutrin Xl] 300 mg PO DAILY 07/22/17 [Last Taken 09/24/17] Warfarin Sodium [Coumadin 5MG (*)] 5 mg PO HS 09/24/17 [Last Taken 09/23/17] metFORMIN HCL [Glucophage 1000 mg] 1,000 mg PO BIDMEAL 09/24/17 [Last Taken 18:00] I have personally reviewed and updated: family history, medical history, social history, surgical history - Past Medical History Additional medical history: CAD s/p 2v CABG (2002), mechanical mitral and aortic valve replacement (2002), mild LV dysfunction (EF 45%), HTN, atrial fibrillation, CKD stage 3, suspected BUCKY, chronic hypoxemic respiratory insufficiency, prostate cancer, TBI - Surgical History Reports: no pertinent surgical hx - Family History Additional family history: Significant for heart and kidney disease. - Social History Smoking Status: Former smoker Alcohol Use: None Drug Use: None Additional social history: Lives in [place] with . Review of Systems Review of Systems: ROS: 10pt was reviewed & negative except for what was stated in HPI & below Constitutional: Reports: no symptoms EENMT: Reports: no symptoms Cardiac: Reports: irregular heart rate. Denies: chest pain, edema, palpitations , syncope Respiratory: Reports: cough, orthopnea, shortness of breath Gastrointestinal: Denies: vomitting, diarrhea, nausea Genitourinary: Reports: no symptoms Muscolosketal: Reports: no symptoms Skin: Reports: no symptoms Neurological: Reports: weakness Physical Exam Physical Exam: Temp Pulse Resp BP Pulse Ox 36.9 C 108 H 12 127/77 H 95 09/24/17 15:27 09/24/17 15:27 09/24/17 15:27 09/24/17 15:27 09/24/17 15:27 Constitutional: no apparent distress, appears nourished, not in pain, obese Eyes: PERRL, anicteric sclera, EOMI Ears, Nose, Mouth, Throat: moist mucous membranes, hearing normal, ears appear normal, no oral mucosal ulcers Cardiovascular: no murmur, rub, or gallop, JVD (2-3cm above clavicle while at 60 degrees), tachycardia, edema (2+ to mid-saenz of BLE), other (audible mechanical click) Respiratory: no respiratory distress, no rales or rhonchi, clear to auscultation Gastrointestinal: normoactive bowel sounds, soft, non-tender abdomen, no palpable masses Skin: warm, normal color, no rashes or abrasions, no fluctuance, no induration, No mottled Musculoskeletal: full muscle strength, no muscle tenderness, normal joint ROM, no joint effusions Neurologic: AAOx3, sensation intact bilaterally, CN II-XII Intact, No weakness Psychiatric: interacting appropriately, not anxious, not encephalopathic, thought process linear Lab Data & Imaging Review 09/24/17 09:30 09/24/17 09:45 WBC 7.60 10^3/uL (3.80-9.50) 09/24/17 09:30 RBC 4.67 10^6/uL (4.40-6.38) 09/24/17 09:30 Hgb 14.0 g/dL (13.7-17.5) 09/24/17 09:30 Hct 41.6 % (40.0-51.0) 09/24/17 09:30 MCV 89.1 fL (81.5-99.8) 09/24/17:30 MCH 30.0 pg (27.9-34.1) 09/24/17:30 MCHC 33.7 g/dL (32.4-36.7) 09/24/17:30 RDW 14.6 % (11.5-15.2) 09/24/17:30 Plt Count 208 10^3/uL (150-400) 09/24/17: MPV 10.9 fL (8.7-11.7) 09/24/17:30 Neut % (Auto) 70.3 % (39.3-74.2) 09/24/17 09:30 Lymph % (Auto) 13.2 % (15.0-45.0) L 09/24/17:30 [place] % (Auto) 8.2 % (4.5-13.0) 09/24/17:30 Eos % (Auto) 7.0 % (0.6-7.6) 09/24/17:30 Baso % (Auto) 0.8 % (0.3-1.7) 09/24/17: Nucleat RBC Rel Count 0.0 % (0.0-0.2) 09/24/17:30 Absolute Neuts (auto) 5.35 10^3/uL (1.70-6.50) 09/24/17:30 Absolute Lymphs (auto) 1.00 10^3/uL (1.00-3.00) 09/24/17:30 Absolute Monos (auto) 0.62 10^3/uL (0.30-0.80) 09/24/17 09:30 Absolute Eos (auto) 0.53 10^3/uL (0.03-0.40) H 09/24/17 09:30 Absolute Basos (auto) 0.06 10^3/uL (0.02-0.10) 09/24/17 09:30 Absolute Nucleated RBC 0.00 10^3/uL (0-0.01) 09/24/17 09:30 Immature Gran % 0.5 % (0.0-1.1) 09/24/17 09:30 Immature Gran # 0.04 10^3/uL (0.00-0.10) 09/24/17 09:30 PT 21.8 SEC (12.0-15.0) H 09/24/17 09:45 INR 1.89 (0.83-1.16) H 09/24/17 09:45 APTT 31.1 SEC (23.0-38.0) 09/24/17 09:45 Sodium 141 mEq/L (135-145) 09/24/17 09:45 Potassium 4.5 mEq/L (3.3-5.0) 09/24/17 09:45 Chloride 107 mEq/L (97-110) 09/24/17 09:45 Carbon Dioxide 22 mEq/l (22-31) 09/24/17 09:45 Anion Gap 12 mEq/L (8-16) 09/24/17 09:45 BUN 27 mg/dL (7-23) H 09/24/17 09:45 Creatinine 1.4 mg/dL (0.7-1.3) H 09/24/17 09:45 Estimated GFR 50 09/24/17 09:45 Glucose 166 mg/dL (70-100) H 09/24/17 09:45 Calcium 9.2 mg/dL (8.5-10.4) 09/24/17 09:45 POC Troponin I 0.04 ng/mL (0.00-0.08) 09/24/17 09:32 NT-Pro-B Natriuret Pep 4160 pg/mL (0-125) H 09/24/17 09:45 Visualized and Interpreted Chest x-ray results: Yes Chest X-Ray results: other (left lower lobe volume loss, no effusion) Visualized and Interpreted EKG results: Yes EKG Interpretation: Positive for: other (tachycardic (sinus vs junctional)), ST depression (inferolateral leads) Assessment & Plan Assessment: Mr Ragland is a 72yo M with a history of CAD s/p CABG, atrial fibrillation, mechanical mitral and aortic valve replacements on warfarin, mild LV dysfunction presents with 4 days of shortness of breath. Plan: #Acute exacerbation of chronic heart failure: Volume overloaded on exam with elevated BNP (highest in our system). Unclear precipitant but not on diuretics as outpatient and I suspect he may need this. Trend troponins to rule out ACS as culprit. Start lasix 20mg IV x1, monitor weight and I/Os. Will continue home carvedilol. LVEF 45% on 06/2017 TTE; will hold on repeating for now. Alert cardiology to admission and ensure follow up prior to discharge. #Tachycardia: Regular. Appears sinus. Suspect this could be compensatory for heart failure. Will monitor on telemetry and diurese as above. #Atrial fibrillation/flutter: Has required cardioversion before. As above, his tachycardia does not appear to be flutter and I have a low suspicion that this is driving #1. Continue home amiodarone, beta mag. He is on warfarin for anticoagulation. #Mechanical mitral and aortic valve replacement: INR slightly low. Will bridge with LMWH and continue warfarin. #CAD s/p 2v CAB. No recent chest pain. Initial ECG with STD in inferolateral leads; troponin negative x1. Suspect ECG changes are due to increased rate. Trending troponins. Continue asa, statin, BB. #CKD: Baseline creatinine 1.2-1.4 which he is at now. Monitor with BMP in AM. #Chronic hypoxemia: Patient states that he wears 3L NC at home with relative frequency. He has been saturating well on room air. I do suspect he may have BUCKY and may desaturate at night. We will monitor for this. #HTN: BP controlled. Continue home meds. VTE ppx: therapeutic anticoagulation Diet: cardiac, 2L fluid restriction Code: FCFT Disposition: admit for management of heart failure with IV diuretics
[2017-09-24] MEDS: ENOXAPARIN 120 MG/0.8 ML SYR SC SCH (16:21)
--- NOTE | 2017-09-24 18:09 | PDMN ---
Medical Necessity Medical necessity: Change to IP, as of 09/24/17, per MD & MCG M-190; est los >2 mn for eval/tx of CHF exacerbation w/tachycardia, afib/flutter, worsening shortness of breath & fatigue; requiring further workup/cardiac monitoring, Cardiology consult & med management; hx CAD, CABG, MVR/AVR on AC, HTN, chronic hypoxemia, TBI, prostate cancer
[2017-09-24] MEDS: ATORVASTATIN CALCIUM 20 MG TAB PO SCH (22:22)
[2017-09-24] MEDS: CARVEDILOL 6.25 MG TAB PO SCH (22:22)
[2017-09-24] MEDS: ASPIRIN EC 325 MG TAB PO SCH (22:22)
[2017-09-24] MEDS: WARFARIN SODIUM 5 MG TAB PO SCH (22:22)
[2017-09-25 04:25] LABS: INR 1.85 (0.83-1.16); PROTIME(PATIENT) 21.4 SEC (12.0-15.0)
[2017-09-25] MEDS: ENOXAPARIN 120 MG/0.8 ML SYR SC SCH ×2 (05:31→18:09)
[2017-09-25] MEDS ORDERED: ENOXAPARIN 40 MG/0.4 ML SYR SC SCH (09:00)
[2017-09-25] MEDS ORDERED: AMIODARONE HCL 200 MG TAB PO SCH ×2 (09:00→10:30)
[2017-09-25] MEDS: CARVEDILOL 6.25 MG TAB PO SCH ×2 (09:08→21:12)
[2017-09-25] MEDS: buPROPion XL 150 MG TAB PO SCH (09:08)
[2017-09-25] MEDS ORDERED: ATROPINE SULFATE 1 MG/10 ML SYR IVP ONE (10:18)
[2017-09-25] MEDS ORDERED: NS 1,000 ML IV ONE (10:18)
--- NOTE | 2017-09-25 10:32 | CPEKG ---
Heart Rate: 105 RR Interval: 571 QRSD Interval: 88 QT Interval: 368 QTC Interval: 487 QRS [place]: 68 T Wave [place]: -77 EKG Severity - ABNORMAL ECG - EKG Impression: JUNCTIONAL TACHYCARDIA EKG Impression: BORDERLINE PROLONGED QT INTERVAL Electronically Signed By: Jinny Salinas 25-Sep-2017 11:06:20
--- NOTE | 2017-09-25 10:47 | HOSPPROG ---
Hospitalist Progress Note Assessment/Plan: Mr Ragland is a 72yo M with a history of CAD s/p CABG, atrial fibrillation/ flutter, mechanical mitral and aortic valve replacements on warfarin, mild LV dysfunction presents with 4 days of shortness of breath. #Atrial tachycardia: He appears to be in atrial flutter with regular conduction. I suspect that this is the etiology of his dyspnea. Consulted cardiology and they are planning on MARCE guided cardioversion. Increased amiodarone to 400mg daily. Plan for referral to EP on discharge for consideration of ablation. #Acute exacerbation of chronic heart failure: Mildly volume overloaded. LVEF 45% . Likely precipitated by above. Plan for additional dose 20mg IV lasix after cardioversion. He may need home maintenance diuretic. Continue carvedilol. #Mechanical mitral and aortic valve replacement: INR slightly low. Will bridge with LMWH and continue warfarin. #CAD s/p 2v CAB. No recent chest pain. Initial ECG with STD in inferolateral leads; troponin mildly elevated (0.06 x3). Suspect ECG changes and troponin elevation are due to increased rate, as he does not have these when in NSR. Continue asa, statin, BB. #CKD: Baseline creatinine 1.2-1.4 which he is at now. Monitor with BMP in AM. #Chronic hypoxemia: Patient states that he wears 3L NC at home with relative frequency. He has been saturating well on room air. I do suspect he may have BUCKY and may desaturate at night. We will monitor for this. He is followed by Dr Jose Dietz ([facility]). #HTN: BP controlled. Continue home meds. VTE ppx: therapeutic anticoagulation Diet: cardiac, 2L fluid restriction Code: FCFT Disposition: continue admission for management of tachycardia with cardioversion and IV diuresis Subjective: Still having shortness of breath, specifically with exertion. Denies chest pain, orhtopnea, PND, leg swelling. Objective: Vital Signs Temp Pulse Resp BP Pulse Ox 36.8 C 106 H 19 125/80 H 97 09/25/17 07:46 09/25/17 07:46 09/25/17 07:46 09/25/17 07:46 09/25/17 07:46 Laboratory Results 09/25/17 03:17 09/24/17 09/25/17 09/26/17 05:59 05:59 05:59 Intake Total 700 Output Total 1450 Balance -750 PT 21.4 SEC (12.0-15.0) H 09/25/17 03:17 INR 1.85 (0.83-1.16) H 09/25/17 03:17 - Physical Exam Constitutional: no apparent distress, appears nourished, not in pain, obese Eyes: PERRL, anicteric sclera, EOMI Ears, Nose, Mouth, Throat: moist mucous membranes, hearing normal, ears appear normal, no oral mucosal ulcers Cardiovascular: JVD (+hepatojugular reflux), tachycardia, edema (1+ BLE pitting edema to just above ankles) Respiratory: no respiratory distress, no rales or rhonchi, clear to auscultation Gastrointestinal: normoactive bowel sounds, soft, non-tender abdomen, no palpable masses Skin: no rashes or abrasions, no fluctuance, no induration Musculoskeletal: full muscle strength, no muscle tenderness, normal joint ROM Neurologic: AAOx3, sensation intact bilaterally Psychiatric: interacting appropriately, not anxious, not encephalopathic, thought process linear ICD10 Worksheet Patient Problems: Problems Problem Status Onset CHF exacerbation Acute Congestive heart failure Acute Acute on chronic systolic heart failure, NYHA class 3 Acute Atrial tachycardia Acute Chronic Disease Mgmt/Transitional care Acute Dyspnea Acute Fatigue Acute Pulmonary edema Acute Tachycardia Acute
--- NOTE | 2017-09-25 10:57 | GCON ---
[f rep st] CONSULTATION CARDIOLOGY CONSULT DATE OF CONSULTATION: 09/25/2017 PRIMARY CHILLER TECHNICIAN: Dr. Cong Tejeda. CHIEF COMPLAINT: Tachycardia and dyspnea. HISTORY OF PRESENT ILLNESS: We were asked by Dr. Hunter to visit with Villa. The patient is a [age]-year-old male, well known to [facility]. He has a history of coronary disease, status post CABG with mechanical aortic and mitral valves. 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 He has mildly depressed ejection fraction at 45% to 50%, history of atrial tachycardia and atrial fl utter with multiple cardioversions on chronic warfarin therapy. Other history includes untreated sle ep apnea and chronic renal insufficiency. About 4 days ago, he noticed that his heart rate was elevated, above 100 which is a sign, to him, delphine t he is in an atrial arrhythmia. In the setting of this, he had significant fatigue and leg burning with exercise as well as dyspnea. No angina, syncope, or lower extremity edema. His weight has not been going up. He presented to [facility], but was told his appointment had been the day before, so therefore, he came to the ER for further evaluation. He was found to be in heart failure and what appears to be atrial tachycardia with 2:1 block at a rat e just above 100. He was admitted for further evaluation and management. He reports this morning feeling a little bit better after IV Lasix, but still fatigued and dyspneic. REVIEW OF SYSTEMS: He does have a cough for the past 2 or 3 months intermittently productive of gree n sputum. No hemoptysis. Otherwise, a full 10-point review of systems is negative. 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 PAST MEDICAL HISTORY: 1. Coronary disease, status post CABG. 2. Mechanical AVR, MVR. 3. Mild systolic heart dysfunction. 4. Atrial arrhythmias. 5. Chronic renal insufficiency. 6. History of prostate cancer. 7. Sleep apnea, currently untreated, but sleep study is pending. He sees Dr. Jose Dietz. 8. Hypertension. 9. History of traumatic brain injury. 10. Diabetes. 11. Dyslipidemia. OUTPATIENT MEDICATIONS: 1. Warfarin is managed by the anticoagulation clinic. 2. Amiodarone 100 mg. 3. Aspirin 325 mg daily. 4. Wellbutrin. 5. Coreg 12.5 mg twice daily. 6. Glucophage 1000 mg twice daily. 7. Multivitamin. 8. Simvastatin. SOCIAL HISTORY: The patient is . He does not smoke cigarettes or drink significant amounts o f alcohol. FAMILY HISTORY: Not applicable to the current case. PHYSICAL EXAM: VITAL SIGNS: Blood pressure 125/80, heart rate 106, respiratory rate is 19, saturati ng 97% on 3 L nasal cannula, is afebrile. GENERAL: Chronically ill-appearing, obese, older male, in no acute distress. HEENT: Sclerae clear. No jaundice. Mucous membranes are moist. Normocephalic , atraumatic. CARDIOVASCULAR: JVP is 12 with a positive HJR. Regular tachycardic rhythm with crisp mechanical S1 and S2, and no murmurs. LUNGS: Clear to auscultation bilaterally without wheeze, rhonchi, or rales. ABDOMEN: Obese, soft, nontender. No obvious bruits, masses, or hepatosplenomegaly. EXTREMITIES: Warm and well perfused w ith trace bilateral ankle edema. Stigmata of chronic venous insufficiency. NEUROLOGIC: Alert and oriented x3 without gross focal neurologic deficits. Appropriate mood and aff ect. LABORATORY DATA: CBC is essentially normal. His INR is subtherapeutic at 1.85. Sodium 142, potassi um 4.4, chloride 107, bicarb 21, BUN 20, creatinine 1.4 which about his baseline, glucose 118. Tropo lissy has been 0.064, 0.067, and 0.067. BNP is 4160 which is higher than his usual baseline. Serial EKGs reviewed by me: Likely atrial tachycardia with 2:[address] depression . Previous EKGs have demonstrated similar findings. When he has been in sinus in the past, he does not have ST depressions. His last echocardiogram was in June of this year and showed an ejection fraction of 45% to 50% with no rmally functioning mechanical mitral and aortic valves. His last cath was in October 2015. He does have coronary disease, but no critical lesions felt jaime nable to PCI. Chest x-ray reviewed by me: Patchy left lower lobe infiltrate. ASSESSMENT AND PLAN: A 72-year-old male with the above outlined cardiac history, presents with heart failure exacerbation that was likely triggered by atrial tachycardia. 1. Atrial tachycardia: I think he would benefit by episcopalian of sinus rhythm. Back in July, he s topped the amiodarone as he was concerned this was causing fatigued, but he restarted 100 mg daily. I will increase his dose to 400 mg daily, plan for transesophageal echocardiogram cardioversion today , and then outpatient electrophysiology followup for consideration of ablation of his atrial tachycar mirian and possible atrial flutter, which has been listed as a problem in the past. He has had multiple cardioversions, and also do not think that amiodarone would be a good long-term drug for him given t hat he is only 72, and he is already having some elevated TSH. 2. Systolic heart failure: Last ejection was 45-50. We will reassess on transesophageal echocardio gram. Continue his usual cardiomyopathy medications. He is responding well to intravenous diuretics . Follow renal function in this setting. 3. Mechanical aortic and mitral valves: Normal function on exam. Further evaluation with transesop hageal echocardiogram. Continue Coumadin. Agree with bridging back up to therapeutic INR with Loven ox. 4. Coronary disease: He has minimally elevated troponin without angina: This is likely due to hear t failure and subendocardial ischemia related to tachycardia. No indication for cath at this time. 5. Chronic renal insufficiency: Around baseline. Follow in the setting of diuresis. 6. Systemic hypertension: Well controlled. 7. Sleep apnea: He does see Dr. Dietz. A sleep study is pending. I again explained to him that tr eating his sleep apnea would be important to improve the management of his atrial arrhythmias, heart failure, and overall cardiovascular risk. Thank for allowing us to participate in Villa's care. /[id number]/MODL
[2017-09-25] MEDS ORDERED: AMIODARONE HCL 200 MG TAB PO ONE (11:30)
--- NOTE | 2017-09-25 13:30 | PDANEPAE ---
ANE History of Present Illness here for MARCE/CV ANE Past Medical History - Cardiovascular History Hx Hypertension: Yes Hx Arrhythmias: Yes Hx Chest Pain: No Hx Coronary Artery / Peripheral Vascular Disease: Yes Hx CHF / Valvular Disease: Yes Hx Palpitations: Yes - Pulmonary History Hx COPD: Yes Hx Asthma/Reactive Airway Disease: No Hx Recent Upper Respiratory Infection: No Hx Oxygen in Use at Home: Yes O2 in Use at Home (L/minute): 3 Hx Sleep Apnea: Yes - Endocrine History Hx Diabetes: Yes Hypothyroid: No Hyperthyroid: No Obesity: moderate - Liver History Hx Hepatic Disorders: No - Neurological & Psychiatric Hx Hx Neurological and Psychiatric Disorders: No - Cancer History Hx Cancer: No - Congenital Disorder History Hx Congenital Disorders: No - Chronic Pain History Chronic Pain: No ANE Review of Systems Review of systems is: negative Review of Systems: - Exercise capacity Exercise capacity: >=4 METS ANE Patient History - Allergies Allergies/Adverse Reactions: gentamicin [Gentamicin] Allergy (Mild, Verified 09/24/17 09:00) dizzy - Home Medications Home medications: home medication list seen and reviewed Home Medications: Carvedilol [Coreg] 12.5 mg PO BID 08/16/16 [Last Taken 09/24/17] Multivitamins [Multivitamin (*)] 1 each PO HS 08/16/16 [Last Taken 09/23/17] Simvastatin 40 mg PO HS 08/16/16 [Last Taken 09/23/17] Aspirin EC [Aspirin EC 325 mg (*)] 325 mg PO HS 07/22/17 [Last Taken 09/23/17] Bupropion HCl [Wellbutrin Xl] 300 mg PO DAILY 07/22/17 [Last Taken 09/24/17] Warfarin Sodium [Coumadin 5MG (*)] 5 mg PO HS 09/24/17 [Last Taken 09/23/17] metFORMIN HCL [Glucophage 1000 mg] 1,000 mg PO BIDMEAL 09/24/17 [Last Taken 18:00] - NPO status NPO Status: no food or drink >8 hours - Smoking Hx Smoking Status: Former smoker - Alcohol Use Alcohol Use: None ANE Labs/Vital Signs - Labs Result Diagrams: 09/24/17 09:30 09/25/17 03:17 - Vital Signs Vital Signs: reviewed preoperatively; see RN documention for details Blood Pressure: 111/78 Heart Rate: 112 Respiratory Rate: 14 O2 Sat (%): 99 Height: 185.42 cm Weight: 124.5 kg ANE Physical Exam - Airway Neck exam: FROM, increased neck circumference, short neck Mallampati Score: Class 2 Mouth exam: normal dental/mouth exam - Pulmonary Pulmonary: no respiratory distress - Cardiovascular Cardiovascular: irregularly irregular - ASA Status ASA Status: III ANE Anesthesia Plan Anesthesia Plan: GA with mask
[2017-09-25] MEDS ORDERED: PROPOFOL/EMULSION 500 MG/50 ML BOTTLE IV ONE (13:40)
--- NOTE | 2017-09-25 13:46 | PDHPUP ---
History & Physical Update H&P update statement: This history and physical update is based on an assessment of the patient which was completed after admission or registration (within 24 hours), but prior to the surgery/procedure. H&P update: H&P reviewed & patient examined, no change in patient's condition since H&P completed (Please see my consult note dictated 09/25/2017)
--- NOTE | 2017-09-25 14:14 | PDTEE1 ---
MARCE Cardioversion Procedure Procedure: electrical cardioversion Indications: other (Atrial tachycardia) Consent: signed and in chart Anticoagulation: warfarin Procedural Details: Sedation was provided by Dr. Poole of the anesthesia service. Pads were placed in anterior-posterior position. MARCE probe was advanced and standard images obtained. There is no evidence of left atrial or left atrial appendage thrombus. Synchronized cardioversion attempt #1: 200J Results: normal sinus rhythm Conclusions: successful MARCE cardioversion Patient Problems: Problems Problem Status Onset Congestive heart failure Acute CHF exacerbation Acute Chronic Disease Mgmt/Transitional care Acute Acute on chronic systolic heart failure, NYHA class 3 Acute Atrial tachycardia Acute Pulmonary edema Acute Dyspnea Acute Fatigue Acute Tachycardia Acute
--- NOTE | 2017-09-25 14:19 | POSTANESTH ---
Post Anesthetic Evaluation Cardiovascular Status: Normal, Stable Respiratory Status: Normal, Stable Level of Consciousness/Mental Status: Moderately Sleepy Pain Control: Adequate, Prn Tx Ordered Nausea/Vomiting Control: Adequate, Prn Tx Ordered Complications Possibly Related to Anesthesia: None Noted
--- NOTE | 2017-09-25 14:25 | CPEKG ---
Heart Rate: 57 RR Interval: 1053 P-R Interval: 212 QRSD Interval: 84 QT Interval: 452 QTC Interval: 440 P Davenport: 49 QRS Davenport: 47 T Wave Davenport: 260 EKG Severity - NORMAL ECG - EKG Impression: SINUS RHYTHM Electronically Signed By: Jinny Salinas 25-Sep-2017 19:00:39
--- NOTE | 2017-09-25 16:05 | ASMTCMCOM ---
CM Note CM Note Notes: 09/25/2017 Case Management Note Pt admitted for CHF exacerbation. MARCE cardioversion today. Recent discharge from [facility] on 07/26/2017. Pt discharged independent in July. Met w/pt to discuss d/c needs. Pt has home oxygen provided by [employer]. Pt is to [employer] [phone]. Pt relies on [employer] for groceries and meal prep. Pt is able to drive without difficulty. Pt is retired. Pt primary care is Dr. Donald Tavarez in [place]. Case Management d/c poc: to be determined. Awaiting PT and OT eval recommendations to create discharge plan. Case Management to follow. Date Signed: 09/25/2017 04:04 PM Electronically Signed By:Cassia Horan RN
--- NOTE | 2017-09-25 17:01 | ECHO ---
[email or web address] [address] [address] Main: [phone] Fax: Transesophageal Echocardiography Name: NAJMA SIMMONS MR#: [id number] Study Date: 09/25/2017 Study Time: 01:31 PM Date of : 1945 Age: 72 year(s) Height: ( ) Weight: ( ) BSA: Gender: Male Examination: MARCE Indication: Pre Cardioversion Image Quality: Contrast: Requested by: Jen Cruz Heart Rate: Rhythm: BP: / Procedure Staff Rn Documentation: Munir Smith RDCS Reading Physician: Jen Cruz MD Requesting Provider: MARCE Exam Details Conclusions: Normal global systolic LV function. An agitated saline study was performed and was negative for intracardiac shunting. Good color flow doppler in the left atrial appendage. No thrombus in left appendage. A mechanical, bileaflet mitral valve prosthesis is in place. The mitral valve prosthesis exhibits normal function. The aortic valve is a bileaflet mechanical prosthesis. Normal functioning aortic valve prosthesis. Trivial to mild tricuspid valve regurgitation. Measurements: Chambers Valvular Assessment AV/MV Valvular Assessment TV/PV Normal Normal Normal Name Value Range Name Value Range Name Value Range TR Vmax: 1.41 mm/s ( - ) TR PGmax: 8 mmHg ( - ) syst. PAP: 13 mmHg ( - ) Additional Measurements: Valvular Assessment TV/PV Name Value CVP (est.): 5 mmHg Patient: NAJMA SIMMONS Study Date: 09/25/2017 Page 1 of 2 01:31 PM Findings: Left Ventricle: Normal global systolic LV function. Left Atrium: An agitated saline study was performed and was negative for intracardiac shunting. Left Atrial Appendage: Good color flow doppler in the left atrial appendage. No thrombus in left appendage. Right Atrium: The right atrium is normal in size. Mitral Valve: A mechanical, bileaflet mitral valve prosthesis is in place. The mitral valve prosthesis exhibits normal function. The prosthetic mitral valve is normal. Aortic Valve: The aortic valve is a bileaflet mechanical prosthesis. Normal functioning aortic valve prosthesis. The prosthetic aortic valve is normal. Tricuspid Valve: Trivial to mild tricuspid valve regurgitation. Pulmonic Valve: The pulmonic valve is normal in appearance and function. Aorta: The aorta is normal. Pericardium: No pericardial effusion. Exam Comments: Proceeded with successful elective DC cardioversion.. l1n (No Signature Object) Patient: NAJMA SIMMONS Study Date: 09/25/2017 Page 2 of 2 01:31 PM [id number]
[2017-09-25] MEDS ORDERED: SENNOSIDES 1 TAB PO PRN (19:41)
[2017-09-25] MEDS ORDERED: POLYETHYLENE GLYCOL 3350 17 GM PKT PO PRN (19:42)
[2017-09-25] MEDS: WARFARIN SODIUM 5 MG TAB PO SCH (21:12)
[2017-09-25] MEDS: ATORVASTATIN CALCIUM 20 MG TAB PO SCH (21:12)
[2017-09-25] MEDS: ASPIRIN EC 325 MG TAB PO SCH (21:12)
[2017-09-26] MEDS: ENOXAPARIN 120 MG/0.8 ML SYR SC SCH (05:25)
[2017-09-26] MEDS ORDERED: AMIODARONE HCL 200 MG TAB PO SCH (09:00)
[2017-09-26 09:01] LABS: INR 2.19 (0.83-1.16); PROTIME(PATIENT) 24.4 SEC (12.0-15.0)
[2017-09-26] MEDS: buPROPion XL 150 MG TAB PO SCH (09:45)
[2017-09-26] MEDS: CARVEDILOL 6.25 MG TAB PO SCH (09:46)
[2017-09-26 11:30] VITALS: BP 108/63
--- NOTE | 2017-09-26 14:49 | PDCARPN ---
Cardiology Progress Note Assessment/Plan: Assessment/Plan: 72-year-old male with history of coronary disease status post CABG along with mechanical aortic and mitral valve in 2002. He has had history of mildly depressed ejection fraction with heart failure, untreated sleep apnea , chronic renal insufficiency. He was admitted 2 days ago with heart failure and atrial tachycardia. He underwent a MARCE guided cardioversion on September 25. He feels quite well now with resolved heart failure. 1. Paroxysmal atrial tachycardia and a history of atrial flutter: He is now in sinus rhythm. We have increased his amiodarone back up to 400 mg daily. He and I agree that this is not an ideal long-term solution especially given his age of only 72 and his borderline elevated TSH. He will follow up with his primary welder repair, Dr. Cong Tejeda as well as Dr. Feliciano of to discuss a tach and a flutter ablation. For now continue higher dose amiodarone. 2. Heart failure: Ejection fraction on MARCE yesterday was low normal. He appears euvolemic now and asymptomatic, he was not on Lasix as an outpatient, so we will not discharge him on Lasix. Continue Coreg. He is not on lisinopril , would consider this in the outpatient setting. 3. Valvular heart disease with mechanical aortic and mild mitral valves: INR was slightly subtherapeutic and he did receive some Lovenox here in the hospital. However INR today is 2.2, goal INR 2.5-3.5. Would not continue Lovenox as his INR may go up quickly with increased amiodarone. He does follow up with anticoagulation Clinic and has his next visit on FridaySeptember 29. 4. Elevated TSH with normal T3 and T4. This will need to be followed closely especially in the setting of amiodarone therapy. 5. Sleep apnea currently untreated: Sleep study is pending. He sees Dr. Jose Dietz. 6. Chronic renal insufficiency: Stable 7. History of CABG. Minimally elevated troponin this admission: No ACS, this is likely related to his atrial tachycardia and mild heart failure. Patient stable for discharge from a cardiovascular standpoint. Follow up with Dr. Feliciano and Dr. Tejeda. Thank you 09/26/17 14:44 Subjective: He feels back to baseline. He is no longer dyspneic. No chest pain or lightheadedness with ambulation. Reviewed/Discussed With: hospitalist Objective: Vital Signs (8 Hrs) Temp Pulse Resp BP Pulse Ox 09/26/17 11:30 36.9 C 61 16 108/63 93 09/26/17 07:43 36.8 C 56 L 15 133/72 H 98 Intake/Output (24 Hrs) 09/25/17 09/26/17 09/27/17 05:59 05:59 05:59 Intake Total 700 500 Output Total 1450 1700 Balance -750 -1200 Intake: Oral (ml) 700 500 IV Intake (ml) 0 Output: Urine (ml) 1450 1700 Toilet 1250 1700 Urinal 200 Other: Weight 124.5 kg 124.9 kg Intake Quantity Yes Sufficient Number of Voids Toilet 3 2 No acute distress. JVP 12 cm of water the patient sitting at 90 degrees [place] mechanical S1 and S2 without significant murmur or gallop Lungs clear to auscultation bilaterally without wheeze rhonchi or rales No lower extremity edema Result Diagrams: 09/24/17 09:30 09/26/17 08:35 Cardiac Labs: Cardiac Lab Results (72 Hrs) 09/25/17 09/24/17 08:55 21:38 Troponin I 0.067 H 0.067 H ICD10 Worksheet Patient Problems: Problems Problem Status Onset Congestive heart failure Acute CHF exacerbation Acute Chronic Disease Mgmt/Transitional care Acute Acute on chronic systolic heart failure, NYHA class 3 Acute Atrial tachycardia Acute Pulmonary edema Acute Dyspnea Acute Fatigue Acute Tachycardia Acute
--- NOTE | 2017-09-26 15:18 | ASMTDCNOTE ---
Case Management Discharge Discharge Order Complete? Answers: Yes Patient to Obtain Answers: Independently Medications Discharge Comments Notes: 09/26/2017 Case Management Note Pt to discharge independent with follow up as directed. Transitional Care RN to follow after d/c. Pt has benefits through [facility] for further supports. Pt cell phone is [phone]. Date Signed: 09/26/2017 03:17 PM Electronically Signed By:Cassia Horan RN
--- NOTE | 2017-09-26 15:19 | ASDISCHSUM ---
Discharge Information Plan Status:Home with No Needs Medically Cleared to Leave:09/26/2017 Discharge Date:09/26/2017 CM D/C Disposition:Home, Routine, Self-Care ADT D/C Disposition:Home, Routine, Self-Care Projected Discharge Date:09/26/2017 Transportation at D/C: Discharge Delay Reason: Follow-Up Date:09/26/2017 Discharge Slot: Final Diagnosis: Placement Information Patient Contact Information Contact Name:WILMER Relationship: Address:[address] Work Phone: City: [facility] Alternate Phone: [facility] Code:[place] [address] Email: Financial Information Financial Class:Medicare Primary Plan Desc:MEDICARE INPATIENT Primary Plan Number:[id number] Secondary Plan Desc:[employer] Secondary Plan Number:[id number] Assessment Information LACE LACE Length of stay for Answers: 1 day current admission Acuity / Level of Answers: Yes Care: Did the patient have an inpatient admission? Comorbidities - select Answers: Any tumor (including all that apply lymphoma or leukemia) Congestive heart failure Coronary Artery Disease Other Notes: HTN; CKD; Hx of TBI # of Emergency department Answers: 1-2 visits in the last 6 months Score: 12 Date Signed: 09/26/2017 03:18 PM Electronically Signed By:Cassia Horan RN [facility] CM Progress Note CM Note CM Note Notes: 09/25/2017 Case Management Note Pt admitted for CHF exacerbation. MARCE cardioversion today. Recent discharge from [facility] on 07/26/2017. Pt discharged independent in July. Met w/pt to discuss d/c needs. Pt has home oxygen provided by [facility]. Pt is to [employer] [phone]. Pt relies on [employer] for groceries and meal prep. Pt is able to drive without difficulty. Pt is retired. Pt primary care is Dr. Donald Tavarez in [place]. Case Management d/c poc: to be determined. Awaiting PT and OT eval recommendations to create discharge plan. Case Management to follow. Date Signed: 09/25/2017 04:04 PM Electronically Signed By:Cassia Horan RN Case Management Discharge Plan Note Case Management Discharge Discharge Order Complete? Answers: Yes Patient to Obtain Answers: Independently Medications Discharge Comments Notes: 09/26/2017 Case Management Note Pt to discharge independent with follow up as directed. Transitional Care RN to follow after d/c. Pt has benefits through the [facility] for further supports. Pt cell phone is [phone]. Date Signed: 09/26/2017 03:17 PM Electronically Signed By:Cassia Horan RN Intervention Information Intervention Type:*IM-Signed Date of Service:09/26/2017 02:37 PM Patient Type:Inpatient Staff Member:Asuncion Mccarthy Hours: Discipline: Severity: Comment:
--- NOTE | 2017-09-28 20:41 | PDDCSUM ---
Discharge Summary Discharge Summary: Date of Admission: 09/24/2017 Date of Discharge: 09/26/2017 Consultants: cardiology Procedures/Studies: MARCE guided electrical cardioversion Brief Hospital Course by Diagnosis: Mr Ragland is a 72yo M with a history of CAD s/p CABG, atrial fibrillation/ flutter, mechanical mitral and aortic valve replacements on warfarin, mild LV dysfunction presents with 4 days of shortness of breath found to be tachycardic. #Atrial tachycardia: Status post electrical cardioversion with voodoo of sinus rhythm. His amiodarone was increased to 400mg daily. He also carries a history of paroxysmal atrial flutter requiring cardioversion in the past. He is to follow up with Dr Cong Tejeda (primary tar kettle runner) and Dr Feliciano (EP) to discuss atach and aflutter ablation. #Acute exacerbation of chronic heart failure: LVEF low-normal on MARCE ( previously 45-50%). Acute decompensation due to tachycardia. Chronically related to valvular heart disease. He is not on maintenance diuretics at baseline and we did not start any at discharge. We continued his carvedilol. Consider adding ACEi/ARB in future. #Mechanical mitral and aortic valve replacement: Bridged with LMWH while inpatient due to slightly low INR. Continue warfarin with regular INR monitoring (goal 2.5-3.5), especially in light of his increased amiodarone dose. #CAD s/p 2v CAB. No recent chest pain. Initial ECG with STD in inferolateral leads; troponin mildly elevated (0.06 x3). Suspect ECG changes and troponin elevation are due to increased rate, as he does not have these when in NSR. Continue asa, statin, BB. #Elevated TSH: Normal T3 and T4. Concern for amiodarone toxicity. Will need to be followed closely. As above, hopefully will be able to get off amiodarone if ablation is pursued. #CKD: Baseline creatinine 1.2-1.4 which he is at now. #BUCKY: Currently untreated. Sleep study pending, sees Dr Jose Dietz. The patient typically wears 3L NC while sleeping at home. Follow Up Plan: 1. INR check on Friday, 09/29. May need to adjust warfarin dose with increase in amiodarone 2. Follow up with Tray Tejeda and Jodie for consideration of atrial tachycardia ablation 3. Follow up with Dr J Luis aragon: sleep study results and utilization of CPAP 4. Monitor TSH levels while on amiodarone Medications at Discharge: Please refer to EMR for complete medication list. During this hospitalization, we increased his amiodarone from 200->400mg daily but otherwise did not make any changes. Physical Exam: Vitals reviewed and patient examined on day of discharge. He is alert and oriented. Regular rate and rhythm on cardiac exam with lungs clear to auscultation.
== END 2017-09-26 15:47 | disposition home or self-care (01) | DRG 308 ==
LOC: F2W 13:40 → OBSVTOIN 17:16
PROVIDERS: ADMIT Internal Medicine; ATTEND Internal Medicine
DX: I47.1 Supraventricular tachycardia (principal); I13.0 Hypertensive heart and chronic kidney disease with heart failure and stage 1 through stage 4 chronic kidney disease, or unspecified chronic kidney disease; I50.23 Acute on chronic systolic (congestive) heart failure; I25.10 Atherosclerotic heart disease of native coronary artery without angina pectoris; I48.91 Unspecified atrial fibrillation; N18.9 Chronic kidney disease, unspecified; G47.33 Obstructive sleep apnea (adult) (pediatric); Z95.2 Presence of prosthetic heart valve; Z95.1 Presence of aortocoronary bypass graft; Z85.46 Personal history of malignant neoplasm of prostate
CPT/HCPCS: 84481-90; 84484-PO; 97161-GP; G8978-GP-CI; G8979-GP-CI; G8980-GP-CI; J1650; J1940; J2704

== ENCOUNTER 2017-11-05 11:15 | Observation (INO) | payer OTHER, BC ==
--- NOTE | 2017-11-05 11:28 | PDGENHP ---
History & Physical Chief Complaint: atrial tachycardia/flutter History of Present Illness: symptomatic at/afl Relevant Physical Exam: s1s2. cta. ao3 Cardiorespiratory Assessment: for afl ablation. if left sided AT, will not perform ablation given mechanical AV and MV
[2017-11-05] MEDS ORDERED: HEPARIN 10,000 UNIT/10 ML MDV (1,000 UNIT/ML) ONE (12:01)
[2017-11-05] MEDS ORDERED: LIDOCAINE 1% 300 MG/30 ML SDV ONE (12:01)
[2017-11-05] MEDS ORDERED: BUPIVACAINE 0.75% 10 ML SDV ONE (12:02)
--- NOTE | 2017-11-05 12:03 | PDANEPAE ---
ANE Past Medical History - Cardiovascular History Hx Hypertension: Yes Hx Arrhythmias: Yes Hx Chest Pain: No Hx Coronary Artery / Peripheral Vascular Disease: Yes Hx CHF / Valvular Disease: Yes Hx Palpitations: Yes - Pulmonary History Hx COPD: Yes Hx Asthma/Reactive Airway Disease: No Hx Recent Upper Respiratory Infection: No Hx Oxygen in Use at Home: Yes Hx Sleep Apnea: Yes - Endocrine History Hx Diabetes: Yes - Liver History Hx Hepatic Disorders: No - Neurological & Psychiatric Hx Hx Neurological and Psychiatric Disorders: No - Cancer History Hx Cancer: No - Congenital Disorder History Hx Congenital Disorders: No - Chronic Pain History Chronic Pain: No ANE Review of Systems Review of Systems: ANE Patient History - Allergies Allergies/Adverse Reactions: gentamicin [Gentamicin] Allergy (Mild, Verified 10/29/17 16:23) dizzy - Home Medications Home Medications: Carvedilol [Coreg] 12.5 mg PO BID 08/16/16 [Last Taken 11/05/17] Multivitamins [Multivitamin (*)] 1 each PO HS 08/16/16 [Last Taken 11/04/17] Simvastatin 40 mg PO HS 08/16/16 [Last Taken 11/03/17] Aspirin EC [Aspirin EC 325 mg (*)] 325 mg PO HS 07/22/17 [Last Taken 11/03/17] Bupropion HCl [Wellbutrin Xl] 300 mg PO DAILY 07/22/17 [Last Taken 11/04/17] Warfarin Sodium [Coumadin 5MG (*)] 5 mg PO HS 09/24/17 [Last Taken 11/03/17] metFORMIN HCL [Glucophage 1000 mg] 1,000 mg PO BIDMEAL 09/24/17 [Last Taken 01/11] Amiodarone HCl [Pacerone (*)] 200 mg PO DAILY 10/29/17 [Last Taken 11/04/17] - Smoking Hx Smoking Status: Former smoker ANE Physical Exam - Airway Neck exam: decreased ROM Mallampati Score: Class 3 Mouth exam: normal dental/mouth exam - ASA Status ASA Status: III ANE Anesthesia Plan Anesthesia Plan: general endotracheal anesthesia
[2017-11-05] MEDS ORDERED: REMIFENTANIL HCL 1 MG VIAL ONE (12:08)
[2017-11-05] MEDS ORDERED: fentaNYL 100 MCG/2 ML INJ ONE (12:08)
[2017-11-05] MEDS ORDERED: PROPOFOL/EMULSION 500 MG/50 ML BOTTLE IV ONE ×2 (12:09→12:15)
[2017-11-05] MEDS ORDERED: ROCURONIUM 50 MG/5 ML VIAL ONE ×2 (12:09→13:01)
[2017-11-05] MEDS ORDERED: ISOPROTERENOL HCL/D5W 0.2 MG/50 ML BAG IV ONE (13:11)
[2017-11-05] MEDS ORDERED: SUGAMMADEX SODIUM 200 MG/2 ML VIAL IVP ONE (14:19)
--- NOTE | 2017-11-05 14:43 | EPPROC ---
Electrophysiology Procedure Note: ELECTROPHYSIOLOGIC STUDY AND CATHETER MEDIATED ABLATION FOR SUBEUSTACHIAN ISTHMUS DEPENDENT COUNTERCLOCKWISE ATRIAL FLUTTER: INDICATION: Recurrent atrial flutter PROCEDURES PERFORMED: 31469-98 EP evaluation with RA/RV/LA pace/record, with arrhythmia induction 94499-90 EP evaluation with RA/RV pace record, insert/reposition catheter, with arrhythmia induction 21847 SVT ablation 29337 3D mapping Fluoroscopy Catheters & Anesthesia: The patient arrived in the Electrophysiology Laboratory in the fasting state. The right clavicular region, right groin, and left groin area were prepped and draped in the usual sterile manner. Anesthesiologist Dr. Alvaro Fontana administered general anesthesia. Appropriate non-invasive blood pressure, pulse oximetry and end-tidal CO2 monitoring was established. All catheters were placed percutaneously using the modified Seldinger technique , and advanced into position under fluoroscopic guidance. One #7 Maldivian deflectable octapolar electrode catheter was advanced to the His-bundle position via the left femoral vein this catheter was then placed into the coronary sinus. One # 7 Maldivian Halo catheter was inserted through the L femoral vein and was placed at the tricuspid annulus. INR was 2.4, no heparin was given Programmed stimulation was performed from the right atrium, coronary sinus ( left atrium) and right ventricle. Parahisian pacing demonstrated all retrograde conduction over the AV node. On arrival to the Electrophysiology Laboratory the patient was in sinus rhythm. Atrial flutter has been noted previously. In preparation for ablation of atrial flutter, a high-resolution 3D (3 dimensional) Carto electroanatomical map of the sub-Eustachian isthmus and right atrium was obtained during pacing of the posterolateral coronary sinus. For ablation of typical atrial flutter, one Mobi sheath was placed in the right atrium. A #8 Maldivian deflectable quadrapolar electrode catheter (2mm-5mm-2mm spacing) with 3.5 mm irrigated tip electrode and location sensor for the [employer] mapping system was inserted in the long sheath and advanced to the right atrium. Radiofrequency applications were applied between the tricuspid annulus at 0630 oclock as seen in the [place] view and the inferior vena cava. This achieved conduction block across the isthmus. Septal to lateral conduction time 248 ms. Post ablation, a high-resolution electroanatomical map of the sub-Eustachian isthmus was obtained during pacing of the posterolateral coronary sinus. This confirmed conduction block across the sub-Eustachian isthmus. Bidirectional block was also confirmed by pacing. Following ablation of the atrial flutter, programmed atrial stimulation was performed in the baseline state and during infusion of isoproterenol 1 mcg/min. Atrial tachycardia CL 260 ms was induced. Entrainment from lateral TA, CT isthmus, proximal CS, distal CS , interatrial septum and posterior RA (emmie) confirmed that this was left atrial tachycardia. Entrainment from RA achieved dissociation of RA from left atrial tachycardia as well. Per prior discussion with the patient, given his mechanical mitral valve prosthesis, we elected not to map or ablate the left atrial tachycardia due to risk of catheter entrapment. There for this tachycardia was terminated by antitachycardia pacing from the coronary sinus. It could not be terminated by antitachycardia pacing from the right atrium. The catheters were removed. Sheaths were removed in the EP lab after applying subcutaneous purse string suture. The patient was transferred to the cardiovascular holding area in stable condition. There were no apparent complications. Antegrade WBB 450 ms, no antegrade slow pathway noted. CONCLUSIONS: 1. Atrial flutter. 2. Successful catheter mediated ablation of cavotricuspid isthmus achieving bi -directional conduction block across cavotricuspid isthmus. 3. Left atrial tachycardia induced post ablation of atrial flutter. This was not targeted for ablation because patient has mechanical mitral valve and patient had instructed me not to risk catheter entrapment. This left atrial tachycardia is not able to be pace terminated from the right atrium. He needs atrial pacing from mid to distal coronary sinus for antitachycardia therapies if this is considered in the future. 4. No apparent complications. Patient Problems: Problems Problem Status Onset Congestive heart failure Acute CHF exacerbation Acute Chronic Disease Mgmt/Transitional care Acute Acute on chronic systolic heart failure, NYHA class 3 Acute Atrial tachycardia Acute Pulmonary edema Acute Dyspnea Acute Fatigue Acute Tachycardia Acute
[2017-11-05] MEDS ORDERED: ONDANSETRON 4 MG/2 ML VIAL IVP PRN (14:47)
[2017-11-05] MEDS ORDERED: ALBUTEROL 3 ML DEYVIAL IH PRN (14:47)
[2017-11-05] MEDS ORDERED: NALOXONE HCL 0.4 MG/ML INJ IVP PRN (14:47)
--- NOTE | 2017-11-05 14:48 | POSTANESTH ---
Post Anesthetic Evaluation Cardiovascular Status: Similar to Pre-Op Cond Respiratory Status: Similar to Pre-op Cond. Level of Consciousness/Mental Status: Mildly Sleepy, Arousable Pain Control: Adequate, Prn Tx Ordered Nausea/Vomiting Control: Adequate, Prn Tx Ordered Complications Possibly Related to Anesthesia: None Noted
[2017-11-05] MEDS: metFORMIN HCL 500 MG TAB PO SCH ×2 (17:24→22:09)
[2017-11-05] MEDS: CARVEDILOL 6.25 MG TAB PO SCH (18:40)
[2017-11-05] MEDS ORDERED: IBUPROFEN 200 MG TAB PO PRN (18:44)
[2017-11-05] MEDS: HYDROCODONE/APAP 5/325 TAB PO PRN (19:13)
[2017-11-05] MEDS ORDERED: ASPIRIN EC 325 MG TAB PO SCH (21:00)
[2017-11-05] MEDS ORDERED: ATORVASTATIN CALCIUM 20 MG TAB PO SCH (21:00)
[2017-11-05] MEDS ORDERED: MULTIVITAMINS 1 EACH TAB PO SCH (21:00)
[2017-11-05] MEDS ORDERED: WARFARIN SODIUM 5 MG TAB PO SCH (21:00)
[2017-11-06 04:28] LABS: PLATELET COUNT 184 10^3/uL (150-400)
[2017-11-06 04:32] LABS: INR 2.28 (0.83-1.16); PROTIME(PATIENT) 25.1 SEC (12.0-15.0)
[2017-11-06] MEDS: HYDROCODONE/APAP 5/325 TAB PO PRN (07:46)
[2017-11-06] MEDS: CARVEDILOL 6.25 MG TAB PO SCH (07:47)
--- NOTE | 2017-11-06 08:41 | CPEKG ---
Test Reason : OPEN Blood Pressure : / mmHG Vent. Rate : 067 BPM Atrial Rate : 066 BPM P-R Int : 203 ms QRS Dur : 095 ms QT Int : 456 ms P-R-T Axes : 072 065 029 degrees QTc Int : 482 ms Sinus rhythm Minimal ST depression, anterolateral leads Borderline prolonged QT interval Confirmed by Miguel Ángel Nunes ([id number]) on 11/06/2017 8:41:00 AM Referred By: Confirmed By:Miguel Ángel Nunes
[2017-11-06] MEDS ORDERED: buPROPion XL 150 MG TAB PO SCH (09:00)
[2017-11-06] MEDS: metFORMIN HCL 500 MG TAB PO SCH (09:29)
--- NOTE | 2017-11-06 11:21 | ECHO ---
[email or web address] [address] [address] Main: [phone] Fax: Transthoracic Echocardiogram Name: NAJMA SIMMONS MR#: [id number] Study Date: 11/06/2017 Study Time: 08:00 AM Date of : 1945 Age: 72 year(s) Height: 185.4 cm (73 in.) Weight: 123.38 kg (272 lb.) BSA: 2.45 m2 Gender: Male Examination: Echo Indication: F/U post EP study, previous echo 07/11 Image Quality: Technically Difficult Contrast: Requested by: Doyle Feliciano BP: / Heart Rate: Rhythm: Indication: F/U post EP study, previous echo 07/11 Procedure Staff Machine Adjuster Leader: Lolly Shipley RDCS Reading Physician: Nuno Trevizo MD Requesting Provider: Conclusions: This is a technically difficult study with poor acoustic windows . The patient is known to have had previous mechanical aortic and mitral valve replacement surgery. The left ventricle is normal in size and systolic function with an ejection fraction estimated to be 60-65%. There are no obvious wall motion abnormalities however these cannot be excluded based on the quality of this study. There is moderate to severe left atrial enlargement with mild right atrial enlargement. Mechanical aortic and mitral prostheses are noted. There is no indication of significant prosthetic valve dysfunction. The patient had a previous study in April of this year at that time, the aortic transvalvular gradients were little lower. The ejection fraction on that study was noted to be 45-50%. Measurements: Chambers Valvular Assessment AV/MV Valvular Assessment TV/PV Normal Normal Normal Name Value Range Name Value Range Name Value Range Ao Jerica (MM): 2.4 cm (2.2 cm-3.7 AV Vmax: 2.43 m/s (1 m/s-1.7 TR Vmax: 2.82 mm/s ( - ) cm) m/s) TR PGmax: 32 mmHg ( - ) IVSd (2D): 0.9 cm (0.6 cm-1.1 AV meanP mmHg ( - ) syst. PAP: 37 mmHg ( - ) cm) MV E Vmax: 1.53 m/s ( - ) LVDd (2D): 5.7 cm (4.2 cm-5.9 MV A Vmax: 1.26 m/s ( - ) cm) MV E/A: 1.21 ( - ) LVDs (2D): 3.9 cm (2.1 cm-4 MV meanP mmHg ( - ) cm) LVPWd (2D): 1.2 cm (0.6 cm-1 cm) LVEF (2D): 59 (>=54 %) EF Range: 60-65 % Continued Measurements: Chambers Valvular Assessment AV/MV Valvular Assessment TV/PV Name Value Name Value Name Value Patient: NAJMA SIMMONS Study Date: 11/06/2017 Page 1 of 2 08:00 AM LADs Lon.2 cm MV E' Septal: 0.06 m/s CVP (est.): 5 mmHg LA Area: 37.4 cm2 MV E/E' Septal: 26.60 MV E/E' Lateral: 17.20 MV VTI: 47.80 cm Findings: Left Ventricle: Normal global systolic LV function. The ejection fraction is estimated to be 60-65 %. No regional wall motion abnormality. Diastolic dysfunction is present. . Right Ventricle: Normal size right ventricle. Left Atrium: The left atrium is moderately to severely dilated. Right Atrium: The right atrium is mildly dilated. Mitral Valve: A mechanical mitral valve prosthesis is in place.. The mitral valve prosthesis exhibits normal function. MV mean PG is 4mmHG.. Aortic Valve: The aortic valve is a mechanical prosthesis.. AV max PG is 24mmHG. AV mean PG is 13mmHG.. Tricuspid Valve: The tricuspid valve is normal in appearance and function. Mild tricuspid regurgitation is present. The pulmonary artery pressure is normal. Pulmonic Valve: The pulmonic valve is normal in appearance and function. Aorta: The aorta is normal. Pericardium: No pericardial effusion. There is pericardial fat. Exam Comments: Compared to the previous echo of 07/11, the aortic gradients have increased. On 07/11, AV max PG was 11mmHG. AV mean PG was 7mmHG, AV V max was 1.63 m/s.. (No Signature Object) Patient: NAJMA SIMMONS Study Date: 11/06/2017 Page 2 of 2 08:00 AM [id number]
[2017-11-06 11:42] VITALS: BP 106/55
--- NOTE | 2017-11-06 14:13 | ASMTCMCOM ---
CM Note CM Note Notes: Pts case discussed w/ TOMASA Monroy. PT worked w/ pt today and is recommending home without any needs. No CM needs at this time. CM available for changes. Plan: Independent Date Signed: 11/06/2017 01:51 PM Electronically Signed By:SAMEER Flores
--- NOTE | 2017-11-06 14:13 | ASMTLACE ---
LACE Length of stay for Answers: 1 day current admission Acuity / Level of Answers: No Care: Did the patient have an inpatient admission? Comorbidities - select Answers: Chronic pulmonary disease all that apply Congestive heart failure Coronary Artery Disease Diabetes (uncontrolled or controlled) Other Notes: HTN; AFib # of Emergency department Answers: 3-4 visits in the last 6 months Score: 12 Date Signed: 11/06/2017 01:50 PM Electronically Signed By:SAMEER Flores
--- NOTE | 2017-11-06 15:20 | CPEKG ---
Test Reason : OPEN Blood Pressure : / mmHG Vent. Rate : 057 BPM Atrial Rate : 058 BPM P-R Int : 197 ms QRS Dur : 094 ms QT Int : 513 ms P-R-T Axes : 106 081 042 degrees QTc Int : 500 ms Sinus rhythm Borderline right axis deviation Borderline ST depression, anterolateral leads Borderline prolonged QT interval Confirmed by Miguel Ángel Nunes ([id number]) on 11/06/2017 3:20:02 PM Referred By: Confirmed By:Miguel Ángel Nunes
--- NOTE | 2017-11-06 16:08 | GDS ---
ADMISSION DIAGNOSES: 1. Atrial tachycardia. 2. Atrial flutter. 3. Coronary artery disease, status post coronary artery bypass graft. 4. Mechanical mitral valve. 5. Mechanical aortic valve. 6. Planned electrophysiology study with possible ablation. 7. Diabetes. DISCHARGE DIAGNOSES: 1. Electrophysiology study with successful atrial flutter ablation. 2. Coronary artery disease, status post coronary artery bypass graft. 3. Mechanical mitral valve. 4. Mechanical aortic valve. 5. Diabetes. HOSPITAL COURSE: This gentleman was seen in clinic by Dr. 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 He was found to have atrial flutter episodes during that hospitalization. Dr. Feliciano reviewed the EKGs from June and September consistent with atrial tachycardia , atrial flutter. He continued to have symptoms of fatigue, exertional intolerance, and dyspnea with exertion. He has not had syncope or chest pain. During that visit, options of treatment were reviewed with him, including medication and ablation procedures. The risks and benefits of electrophysiology study and ablation were reviewed with him at length, including risk of , myocardial infarction, stroke, and the possible need for placement of permanent pacemaker. Dr. Feliciano also discussed with him that approximately a third of patients that have atrial flutter ablation will develop atrial fibrillation within 3 years. The patient expressed good understanding of this discussion. He was taken to the EP lab on 11/05/2017, where Dr. Feliciano was able to successfully isolate atrial flutter with successful ablation and no complications. He was then recovered and taken to PCU for overnight observation where he has done well. He has been up. His stitches were removed with no complications. He does have thick skin folds in the groin area that required a teaching regarding hygiene care for that area and healing of the groin sites. Stitches were removed with no complications. At this time, he currently is stable for discharge. ALLERGIES: He has allergy to gentamicin. DISCHARGE MEDICATIONS: He will go home on simvastatin 40 mg at bedtime, multivitamin 1 in the evening, carvedilol 12.5 mg twice daily, Wellbutrin XL 300 mg daily, aspirin enteric-coated 325 mg at bedtime, metformin 1000 mg twice daily, warfarin 5 mg at bedtime. Pacerone was stopped. PHYSICAL EXAMINATION: VITAL SIGNS: On day of discharge, blood pressure 106/55 , heart rate 56 and regular, oxygen saturation 93%, temperature 36.8. His EKG did show a sinus rhythm on 11/06/2017. HEART: Rate regular, with 2/10 murmur. No rubs or gallops. LUNGS: Sounds are clear to auscultation. No wheezes, rales, or rhonchi. VASCULAR: Peripheral pulses are 2+ bilateral. Groin site. Femoral pulses 2+ bilateral. GROIN: Stitch removal at groin sites with no complications. Due to skin folds, the groin area has thick folds with redness. Cath insertion site does not indicate any sign of infection. PROCEDURES: 1. 11/05/2017, he was taken to the EP lab by Dr. Doyle Feliciano, where he was able to perform atrial flutter ablation. a. Indication for procedure: Recurrent atrial flutter. b. There were no procedural complications. Conclusion: I. Atrial flutter. Successful catheter mediated ablation of the cavotricuspid isthmus achieving bidirectional conduction block across cavotricuspid isthmus. Left atrial tachycardia induced post ablation of atrial flutter. This was not targeted for ablation because patient has mechanical mitral valve and patient had previously instructed not to risk catheter entrapment. Left atrial tachycardia not able to be pace terminated from the right atrium. He would need atrial pacing from mid to distal coronary sinus for antitachycardia therapies if this is considered in the future. No apparent complications. 2. Echocardiogram on 11/06/2017: a. Conclusion: Known previous mechanical aortic and mitral valve replacement surgery. Ejection fraction estimated 60% to 65%. No wall motion abnormalities. [id number] left atrial enlargement. Mechanical aortic and mitral prosthesis are noted. No indication of significant prosthetic valve dysfunction.The aorta is normal. No pericardial effusion.There is pericardial fat. PLAN ON DISCHARGE: 1. Groin precautions for 7 days. No heavy lifting, pushing, pulling greater than 10 pounds. 2. No sitting in a tub of water, but okay to shower. 3. Should groin site bleed, hold firm pressure and go to the nearest emergency room. 4. Keep bowels soft to avoid bearing down. 5. Follow up with Dr. Feliciano's in 2 to 3 weeks. The office will call with appointment. 6. Should he have any questions or concerns, he is asked to call [facility] and ask for Dr. Feliciano's nurse. 7. Instructions were given for care of his groin sites due to his thick lower abdomen skin folds where the groin insertion sites are located. There is generalized redness in the area with no skin breakdown. Light dressing was placed on groin sites and reminded to keep clean with soap and water twice daily and to keep the area as dry as possible. There was no bleeding at the groin sites post removal of sutures. 8. At this time, he currently is stable for discharge. /[id number]/MODL MTDD
== END 2017-11-06 14:35 | disposition home or self-care (01) ==
LOC: F3N 11:15 → F2W 16:42
PROVIDERS: ADMIT Internal Medicine Cardiovascular Disease; ATTEND Internal Medicine Cardiovascular Disease
PROC: 3E053KZ Introduction of Other Diagnostic Substance into Peripheral Artery, Percutaneous Approach (ICD-10-PCS; principal; 2017-11-05)
PROC: 02583ZZ Destruction of Conduction Mechanism, Percutaneous Approach (ICD-10-PCS; principal; 2017-11-05)
PROC: 02K83ZZ Map Conduction Mechanism, Percutaneous Approach (ICD-10-PCS; principal; 2017-11-05)
PROC: 4A023FZ Measurement of Cardiac Rhythm, Percutaneous Approach (ICD-10-PCS; principal; 2017-11-05)
DX: I48.92 Unspecified atrial flutter (principal); I48.91 Unspecified atrial fibrillation; G47.33 Obstructive sleep apnea (adult) (pediatric); E11.9 Type 2 diabetes mellitus without complications; I25.10 Atherosclerotic heart disease of native coronary artery without angina pectoris; Z98.1 Arthrodesis status; Z95.2 Presence of prosthetic heart valve; Z95.1 Presence of aortocoronary bypass graft; Z23 Encounter for immunization
CPT/HCPCS: 90686; 93005; 93306; 97161; G0008; G8978; G8979; G8980; J1644; J2704; J3010